=== PATIENT | male | born 1985 | race Caucasian/White ===

== ENCOUNTER 2025-07-19 19:57 | Emergency (ER) | payer BC, SELFPAY ==
[2025-07-19 19:58] VITALS: BP 142/97; PULSE 104; RESP 20; TEMP 36.6; O2SAT 100; BMI 34.9
--- NOTE | 2025-07-19 20:11 | EDS_ITS ---
HPI History of Present Illness Chief Complaint: Chest Pain Informant: patient Onset/Context/Timing Onset: Today Activity at onset: sudden and rest Timing: Continuous Quality: Positive for Pressure and Sharp Location: Substernal Worsened By: Nothing Relieved By: Nothing Associated Symptoms: Positive for Dyspnea; Negative for Nausea, Vomiting, Diaphoresis, Cough, Fever, Lightheadedness, Acid Reflux or Palpitations Narrative Narrative: Patient presents with chest pain that began today. Patient states it began rather suddenly. Patient states he was sitting when it began. Patient describes it as sharp and pressure. Patient states it is over the lower substernal area. Patient states nothing makes it worse and nothing makes it better. Patient admits to some shortness of breath with it. Patient denies any nausea or vomiting. Patient denies any diaphoresis. Patient denies any fevers or chills. Patient denies any palpitations. CVD Risk Factors: Negative for Hypertension, Diabetes, Hypercholesterolemia, Family History 1' </=55 or Smoking PE Risk Factors: Negative for Recent Travel/Surgery, Recent Immobilization, Prior DVT or PE, Cancer or OCP + Smoking + >/=35 PFSH PFSH Medical History no medical history no medical history Home Medications ?Medication ?Instructions ?Recorded ?Last Taken ?Type NK 07/19/25 Unknown History Allergy/AdvReac Type Severity Reaction Status Date / Time amoxicillin Allergy Swelling Verified 07/19/25 20:01 Surgical History no surgical history no surgical history Social History Smoking Status: Never smoker ROS ROS ED Constitutional Constitutional ED: Denies chills or fever(s) Eyes Eyes: Denies blurry vision or change in vision ENT ENT ED: Denies rhinorrhea or sore throat Cardiovascular Cardiovascular: Reports chest pain; Denies palpitations Respiratory/Chest Respiratory/Chest: Reports dyspnea; Denies cough Gastrointestinal Gastrointestinal: Denies nausea or vomiting Genitourinary Genitourinary ED: Denies dysuria or hematuria Musculoskeletal Musculoskeletal: Denies back pain or neck pain Integumentary Denies abscess or rash Neurologic Neurologic: Denies headache(s) or weakness Allergic/Immunologic Allergic/Immunologic ED: Denies mouth swelling or urticaria EXAM Physical Exam Const Vital Signs: 07/19/25 19:58 07/19/25 20:53 07/19/25 21:11 Temperature 97.8 F Temperature Source Oral Pulse Rate 104 H Respiratory Rate 20 H Blood Pressure 142/97 H 141/97 H Blood Pressure Mean 112 Pulse Ox 100 Oxygen Delivery Method Room Air Room Air 07/19/25 21:12 07/19/25 22:00 07/19/25 23:00 Temperature Temperature Source Pulse Rate 103 H 111 H 80 Respiratory Rate 19 H 16 Blood Pressure 141/97 H 132/100 H 148/102 H Blood Pressure Mean 111 110 117 Pulse Ox 96 95 99 Oxygen Delivery Method Positive well nourished and well developed General Appearance ED: well developed and NAD HEENT Reports moist mucous membranes normocephalic and atraumatic Neck supple and no JVD Chest Wall inspection of chest normal and palpation of chest normal Resp normal respiratory effort and clear to auscultation bilaterally Cardio regular rate and regular rhythm GI soft to palpation, non-tender and non-distended Extremity normal to inspection General Extremety ED: Negative for edema or tenderness General Extremity: Negative for edema Neuro oriented x3, CN's II-XII intact bilaterally and no sensory deficits noted Sensorium / Orientation: awake and alert Motor Exam: strength 5/5 throughout Psych mental status grossly normal Heart Score History: Slightly/Non-Suspicious ECG: Normal Age: </= 45 years Risk Factors: No Risk Factors Troponin: </= Normal Limit Score: 0 MDM MDM MDM Narrative Medical decision making narrative: Differential diagnosis includes cardiac dysrhythmia, cardiac ischemia, pneumonia, bronchitis, pulmonary embolism, electrolyte abnormality, dehydration, gastroesophageal reflux disease, and anxiety. EKG will be obtained to assess for cardiac dysrhythmia and cardiac ischemia. Chest x-ray will be obtained to assess for pneumonia and bronchitis. CBC will be obtained to assess for leukocy tosis and anemia. Basic metabolic profile will be obtained to assess for electrolyte abnormality and renal function. High-sensitivity troponin will be obtained to assess for cardiac ischemia. 2-hour repeat high-sensitivity troponin will be obtained to assess for ongoing cardiac ischemia. D-dimer will be obtained to assess for pulmonary embolism. Lab Data Attestation: I reviewed the patient's lab results. Lab results narrative: CBC was reviewed and was within normal limits. Basic metabolic profile was reviewed and was within normal limits. Initial high-sensitivity troponin was reviewed and was less than 6. D-dimer was reviewed and was less than 0.27. 2- hour repeat high-sensitivity troponin was reviewed and was less than 6. Labs: Laboratory Results - last 24 hr 07/19/25 07/19/25 07/19/25 20:04 20:52 22:38 WBC 9.9 RBC 5.29 Hgb 15.0 Hct 43.6 MCV 82.4 MCH 28.4 MCHC 34.4 RDW Std Deviation 38.6 RDW Coeff of Michel 12.9 Plt Count 309 MPV 9.2 Immature Gran % (Auto) 0.400 Neut % (Auto) 45.9 L Lymph % (Auto) 40.0 [place] % (Auto) 8.6 Eos % (Auto) 4.4 Baso % (Auto) 0.7 Absolute Neuts (auto) 4.5 Absolute Lymphs (auto) 3.94 Nucleated RBC % 0 D-Dimer Quant (PE/DVT) < 0.27 L Sodium 143 Potassium 3.6 Chloride 106 Carbon Dioxide 24.7 Anion Gap 12 BUN 14 Creatinine 1.03 Estim Creat Clear Calc 133.31 Est GFR (MDRD) Non-Af 96 BUN/Creatinine Ratio 13.8 Glucose 90 Calcium 9.1 Troponin T High Sens < 6 Troponin T Hi Sens 2 Hr < 6 Radiography Chest X-Ray - ED: 2 View, Read by ED Physician, Read by Radiologist and No Acute Disease Diagnostic Testing: Clinical Impression(s) from Imaging Studies Chest X-Ray 07/19/25 22:20 IMPRESSION: Hypoventilation without acute cardiopulmonary abnormality. Reading Location: [facility] [place] and lateral chest x-ray was obtained. There are 2 views. On my independent interpretation, lung snider are clear. There is normal cardiac silhouette. Bony thorax is normal. There is no acute process noted. Radiologist also interpreted the x-ray and agrees. EKG Initial EKG: Attestation: I personally reviewed and interpreted this EKG as follows: Interpretation: Sinus Rhythm (95) and No Acute Injury Pattern Comments: EKG was obtained. On my independent interpretation, it showed a normal sinus rhythm with a rate of 95. IA interval, QRS interval, and QTc intervals were all normal. [place] was normal. There are no acute ST or T wave changes. Prior EKG tracings: available for review Prior: Unchanged (03/16/2017) Treatment and Re-Evaluation :: Patient was given aspirin and sublingual nitroglycerin. Patient feeling better on reevaluation. Patient states he noted more reflux symptoms in his chest and throat. Patient was given a GI cocktail. Patient has a HEART score of 0. Patient was advised that this is low risk for acute cardiac event. Patient was instructed to follow-up with his primary care physician in 5 to 7 days. Patient understood and was agreeable with the plan. All questions were answered. Discharge Plan Triage Chief Complaint: Chest Pain ED Provider: Mehdi Blackmon Dx/Rx/DC Orders Clinical Impression: Chest pain, GERD (gastroesophageal reflux disease), Elevated blood pressure reading without diagnosis of hypertension Instructions: ED Chest Pain, Uncertain Cause, ED GERD (Adult) Prescriptions: No Action NK Primary Care Provider: Kaveh Oakley Referrals: Kaveh Oakley MD [Primary Care Provider, Family Practice] - 1-2 Weeks Print Language: Latvian Disposition Disposition: Home, Self Care
--- NOTE | 2025-07-19 20:42 | EKG12_ITS ---
Test Reason : CP Blood Pressure : */* mmHG Vent. Rate : 95 BPM Atrial Rate : 95 BPM P-R Int : 164 ms QRS Dur : 90 ms QT Int : 342 ms P-R-T Axes : 27 -3 0 degrees QTcB Int : 429 ms Normal sinus rhythm Normal ECG Confirmed by David Olivo ([id number]), purchasing expeditor ANGELA SPARKS ([id number]) on 07/25/2025 7:29:26 AM Referred By: [email or web address] Confirmed By: David Olivo
--- OUTSIDE RECORDS SUMMARY | 2025-07-19 20:52 | XMS RPT_ITS | CCD ---
Author Organization [facility] CliniSymn Care Team Providers Care Voice Systems Engineer Name Role Phone Maverick Herrera Unavailable Unavailable Kaveh Sánchez Unavailable Unavailable YuriyirisBrandyn Unavailable Unavailable Kaveh Sánchez Unavailable Unavailable Kaveh Sánchez MD Primary Care Provider Kaveh Sánchez MD Primary Care Provider Kaveh Sánchez MD Primary Care Provider Kaveh Sánchez MD Primary Care Provider [place] NEUROPSYCHOLOGY SERVICE DIRECTOR.Ade IZAGUIRRE Unavailable Arline Nielsen PA-C Unavailable Kaveh Sánchez MD Primary Care Provider [place] NEUROPSYCHOLOG[facility] SERVICE DIRECTOR.Ade IZAGUIRRE Unavailable Arline Nielsen PA-C Unavailable Kaveh Sánchez MD Primary Care Provider [place] NEUROPSYCHOLOGY SERVICE DIRECTOR.Ade IZAGUIRRE Unavailable Arline Nielsen PA-C Unavailable ARLINE NIELSEN Referring Unavailable KAVEH SÁNCHEZ A Primary Care Unavailable KAVEH SÁNCHEZ A Primary Care Unavailable FREDDY NEVES Attending Unavailable ARLINE NIELSEN Referring Unavailable KAVEH SÁNCHEZ A Primary Care Unavailable ARLINE NIELSEN Referring Unavailable KAVEH SÁNCHEZ A Primary Care Unavailable ARLINE NIELSEN Referring Unavailable KAVEH SÁNCHEZ A Primary Care Unavailable PRINCESS, KAVEH A Primary Care Unavailable NINA VALENCIA Attending Unavailable ARLINE NIELSEN Attending Unavailable ELIOT SÁNCHEZREY A Primary Care Unavailable Allergies Allergy Classification Reported Allergen(s) Allergy Type Date of Onset Reaction(s) Facility (1 source) amoxicillin Drug Allergy 7 AOF [facility] Repository (9 sources) Penicillins; Translations: [PENICILLINS] Drug Allergy 7 Other: See Comments [facility] Work Phone: (16 sources) Penicillins Drug Allergy 7 Other: See Comments [facility] Work Phone: (10 sources) Penicillins Drug Allergy 7 Hives, Angioedema [facility] Medications Current Medications Medication Drug Class(es) Dates Sig (Normalized) Sig (Original) [id number] 200 actuat albuterol 0.09 mg/actuat metered dose inhaler (11 sources) beta2-Adrenergic Agonist Start: 01-01-2025 take 2 puff(s) by inhalation every six hours as needed for wheezing albuterol HFA (PROVENTIL HFA, VENTOLIN HFA) 90 mcg/actuation inhaler Inhale 2 puffs as instructed every 6 hours as needed for wheezing/shortnes s of breath. 1 each 01/01/2025 Active Start: 12-23-2021 End: 01-26-2022 take 2 puff(s) by mouth four times daily albuterol HFA (PROVENTIL HFA, VENTOLIN HFA) 90 mcg/actuation inhaler inhale 2 puffs by mouth and INTO THE LUNGS four times a day if ne... (REFER TO PRESCRIPTION NOTES). 0 12/23/2021 01/26/2022 Discontinued (Course of therapy completed) Comment on above: inhale 2 puffs by mo uth and INTO THE LUNGS four times a day if ne... (REFER TO PRESCRIPTION NOTES). benzonatate 200 mg oral capsule (11 sources) Non-narcotic Antitussive Start: take 1 capsule by mouth every eight hours as needed Benzonatate 200 mg capsule Take 1 capsule by mouth three times a day as needed. 30 capsule 01/01/2025 Active Start: 12-23-2021 End: 01-26-2022 take 1 capsule by mouth three times daily for cough Benzonatate 200 mg capsule take 1 capsule by mouth three times a day if needed for cough 0 12/23/2021 01/26/2022 Discontinued (Course of therapy completed) Comment on above: take 1 capsule by mo uth three times a day if needed for cough cephalexin 500 mg oral capsule (1 source) Cephalosporin Antibacterial Start: 4 End: 4 take 1 capsule by mouth twice daily cephALEXin (KEFLEX) 500 mg capsule Take 1 capsule by mouth two times a day for 10 days. 20 capsule 0 10/31/2023 11/10/2023 Active Comment on above: Take 1 capsule by [facility] two times a day for 10 days. CPAP/BIPAP/OTHER (20 sources) Start: 5 End: CPAP/BIPAP/OTHER APAP 6-15 cmH2O DME [facility] 1 each 02/03/2025 06/20/2052 Active Start: 03-31-2022 End: 02-03-2025 CPAP/BIPAP/OTHER Type .CPAPS ettings into a note to see current settings/supplies/DME information. 1 Each 03/31/2022 02/03/2025 Discontinued Start: 03-31-2022 End: 01-01-2025 CPAP/BIPAP/OTHER Type .CPAPS ettings into a note to see current settings/supplies/DME information. 1 Each 03/31/2022 01/01/2025 Discontinued (Duplicate Entry) Start: 03-31-2022 End: 08-15-2049 CPAP/BIPAP/OTHER Type .CPAPS ettings into a note to see current settings/supplies/DME information. 1 Each 03/31/2022 08/15/2049 Active Start: 03-31-2022 End: 08-15-2049 CPAP/BIPAP/OTHER Type .CPAPS ettings into a note to see current settings/supplies/DME information. 1 Each 0 03/31/2022 08/15/2049 Active Comment on above: Type .CPAPSettings i nto a note to see current settings/supplies/DME information. multivitamin tablet (20 sources) take 1 tablet by mouth once daily multivitamin tablet Take 1 tablet by mouth once daily. Active take 1 tablet by mouth once flip y multivitamin tablet Take 1 tablet by mouth once daily. 0 Active Comment on above: [facility] omeprazole 40 mg delayed release oral capsule (20 sources) Proton Pump Inhibitor Start: 11-08-2022 End: 01-27-2025 take 1 capsule by mouth once daily omeprazole (PRILOSEC) 40 mg capsule Indications: GERD without esophagitis Take 1 capsule by mouth once daily. 30 capsule 5 01/27/2025 Active Start: 11-12-2019 End: 01-26-2022 take 1 capsule by mouth once daily omeprazole (PRILOSEC) 40 mg capsule Indications: GERD without esophagitis Take 1 capsule by mouth once daily. 30 capsule 5 01/26/2022 Active Comment on above: Take 1 capsule by [facility] once daily. take one capsule by mouth every day sulfamethoxazole 800 mg / trimethoprim 160 mg oral tablet (1 source) Dihydrofolate Reductase Inhibitor Antibacterial, Sulfonamide Antimicrobial Start: End: take 1 tablet by mouth twice daily sulfamethoxazole-tri methoprim (BACTRIM DS) 800-160 mg per tablet Take 1 tablet by mouth twice daily for 7 days. 14 tablet 0 11/22/2021 11/29/2021 Active Comment on above: Take 1 tablet by [facility] twice daily for 7 days. triazolam 0.25 mg oral tablet (8 sources) Benzodiazepine Start: End: triazolam (HALCION) 0.25 mg tablet Indications: sterilization Take 30 minutes prior to procedure. 1 tablet 0 10/18/2021 01/18/2022 Active Comment on above: Take 30 minutes prio r to procedure. valACYclovir 500 mg oral tablet (20 sources) Herpesvirus Nucleoside Analog DNA Polymerase Inhibitor, Herpes Simplex Virus Nucleoside Analog DNA Polymerase Inhibitor, Herpes Zoster Virus Nucleoside Analog DNA Polymerase Inhibitor Start: End: take 1 tablet by mouth once daily as needed valACYclovir (VALTREX) 500 mg tablet Indications: Recurrent cold sores Take 1 tablet by mouth once daily as needed. 30 tablet 5 01/01/2025 06/30/2025 Active Start: 08-01-2023 End: 01-28-2024 take 1 tablet by mouth once daily as needed valACYclovir (VALTREX) 500 mg tablet Indications: Recurrent cold sores Take 1 tablet by mouth once daily as needed. 30 tablet 5 08/01/2023 01/28/2024 Active Start: 11-12-2019 End: 02-25-2022 take 1 tablet by mouth once daily as needed valACYclovir (VALTREX) 500 mg tablet Indications: Recurrent cold sores Take 1 tablet by mouth once daily as needed. 30 tablet 11 01/26/2022 02/25/2022 Active Comment on above: Take 1 tablet by ro[facility] once daily. Take 1 tablet by [facility] once daily as needed. Completed/Discontinued Medications Medication Drug Class(es) Dates Sig (Normalized) Sig (Original) azithromycin 250 mg oral tablet (3 sources) Macrolide Antimicrobial Start: 12-26-2021 End: 01-26-2022 azithromycin (ZITHROMAX) 250 mg tablet Take by mouth as directed. TAKE 2 TABLETS BY MOUTH TODAY, THEN TAKE 1 TABLET DAILY FOR 4 DAYS 0 12/26/2021 01/26/2022 Discontinued (Course of therapy completed) Comment on above: Take by mouth as dir ected. TAKE 2 TABLETS BY MOUTH TODAY, THEN TAKE 1 TABLET DAILY FOR 4 DAYS doxycycline monohydrate 100 mg oral tablet (1 source) Tetracycline-class Drug Start: 01-03-2022 End: 01-26-2022 take 1 tablet by mouth twice daily doxycycline monohydrate 100 mg tablet Take 1 tablet by mouth twice daily. 20 tablet 0 01/03/2022 01/26/2022 Discontinued (Course of therapy completed) Comment on above: Take 1 tablet by [facility] twice daily. 28 actuat fluticasone propionate 0.25 mg/actuat dry powder inhaler (3 sources) Corticosteroid Start: 12-26-2021 End: 01-26-2022 take 2 puff(s) by mouth every twelve hours FLOVENT DISKUS 250 mcg/actuation inhaler inhale 2 puff by mouth and INTO THE LUNGS every 12 hours 0 12/26/2021 01/26/2022 Discontinued (Course of therapy completed) Comment on above: inhale 2 puff by rosanna th and INTO THE LUNGS every 12 hours gabapentin 300 mg oral capsule (9 sources) Anti-epileptic Agent Start: 11-05-2019 End: 01-26-2022 take 1 capsule by mouth twice daily gabapentin (NEURONTIN) 300 mg capsule Indications: Lumbosacral neuritis Take 1 capsule by mouth twice daily for 30 days. 60 capsule 0 11/05/2019 01/26/2022 Discontinued (Course of therapy completed) Comment on above: Take 1 capsule by mo [facility] twice daily for 30 days. naproxen 500 mg oral tablet (4 sources) Nonsteroidal Anti-inflammatory Drug Start: 06-26-2023 End: 07-26-2023 take 1 tablet by mouth every twelve hours as needed naproxen (NAPROSYN) 500 mg tablet Take 1 tablet by mouth two times a day as needed for pain. Take with food. 60 tablet 06/26/2023 07/26/2023 Comment on above: [facility] two times a day as needed for pain. Take with food. sertraline 50 mg oral tablet (9 sources) Serotonin Reuptake Inhibitor Start: 11-03-2020 End: 01-26-2022 sertraline (ZOLOFT) 50 mg tablet Indications: Anxiety with depression 1/2 a tablet by mouth once a day for 10 days then go to one tablet daily 30 tablet 3 11/03/2020 01/26/2022 Discontinued (Course of therapy completed) Comment on above: 1/2 a tablet by [facility] once a day for 10 days then go to one tablet daily Problems Active Problems Problem Classification Problem Date Documented Date Episodic/Chronic Coma; stupor; and brain damage (1 source) Daytime somnolence; Translations: [Somnolence] Episodic Diseases of mouth; excluding dental (1 source) Dribbling from mouth; Translations: [Disturbances of salivary secretion] Episodic Disorders of lipid metabolism (9 sources) Mixed hyperlipidemia; Translations: [Mixed hyperlipidemia] Onset: 01-02-2025 01-02-2025 Chronic Esophageal disorders (20 sources) Gastroesophageal reflux disease without esophagitis; Translations: [Gastro-esophageal reflux disease without esophagitis] Onset: 11-12-2019 11-12-2019 Chronic External Injury - Natural / Environment (1 source) Exposure to other specified factors, initial encounter; Translations: [EXPOSURE TO OTHER SPECIFIED FACTORS, INITIAL ENCOUNTER] Onset: 04-17-2017 Immunizations and screening for infectious disease (2 sources) Vaccination needed; Translations: [Encounter for immunization] Onset: 01-06-2025 01-07-2025 Episodic Malaise and fatigue (3 sources) Fatigue; Translations: [Other fatigue] Onset: 01-01-2025 01-01-2025 Episodic Other connective tissue disease (1 source) Pain in right heel; Translations: [Pain in right foot] 06-19-2023 Episodic Other lower respiratory disease (1 source) Snoring; Translations: [Snoring] Episodic Other lower respiratory disease (1 source) Apnea; Translations: [Apnea, not elsewhere classified] Episodic Other lower respiratory disease (1 source) Cough; Translations: [Subacute cough] 01-01-2025 Episodic Other male genital disorders (2 sources) Pain of right testicle; Translations: [Right testicular pain] Episodic Other non-traumatic joint disorders (2 sources) Pain in right knee; Translations: [Pain in joint, lower leg] 06-26-2023 Episodic Other nutritional; endocrine; and metabolic disorders (20 sources) Obese class I; Translations: [Obesity, unspecified] Onset: 02-19-2020 02-19-2020 Chronic Other upper respiratory infections (5 sources) Pharyngitis; Translations: [Acute pharyngitis, unspecified] Onset: 12-06-2024 10-31-2023 Episodic Residual codes; unclassified (20 sources) Obstructive sleep apnea syndrome; Translations: [Obstructive sleep apnea (adult) (pediatric)] Onset: 02-21-2022 Resolved: 02-03-2025 Chronic Residual codes; unclassified (1 source) Unrefreshed by sleep; Translations: [Other sleep disorders] Chronic Residual codes; unclassified (1 source) Daytime somnolence; Translations: [Other hypersomnia] Chronic Residual codes; unclassified (2 sources) Obstructive sleep apnea (adult) (pediatric); Translations: [Obstructive sleep apnea] Onset: 02-21-2022 Chronic Residual codes; unclassified (2 sources) Reduced libido; Translations: [Decreased libido] 01-01-2025 Episodic Residual codes; unclassified (1 source) Decreased libido; Translations: [Low libido] Onset: 01-01-2025 Episodic Screening and history of mental health and substance abuse codes (2 sources) Encounter for screening for depression; Translations: [Encounter for screening examination for other mental health and behavioral disorders] Onset: 01-01-2025 Episodic Unclassified (1 source) Patient encounter status 01-01-2025 Unclassified (1 source) Obesity, Class I, BMI 30-34.9; Translations: [Obesity, Class I, BMI 30-34.9] Onset: 02-19-2020 Past or Other Problems Problem Classification Problem Date Documented Da te Episodic/Chronic Allergic reactions (2 sources) Allergy, unspecified, initial encounter; Translations: [Allergic urticaria] Onset: 04-17-2017 Episodic Contraceptive and procreative management (20 sources) Patient encounter status; Translations: [Encounter for sterilization] Onset: 11-12-2019 Episodic Other aftercare (2 sources) Other transit planner (current) drug therapy; Translations: [OTHER CARE HOME (CURRENT) DRUG THERAPY] Onset: 04-17-2017 Episodic Other aftercare (20 sources) Drug therapy finding; Translations: [Other transit planner (current) drug therapy] Onset: 11-12-2019 11-12-2019 Episodic Other gastrointestinal disorders (1 source) Dysphagia, unspecified; Translations: [DYSPHAGIA, UNSPECIFIED] Onset: 04-17-2017 Episodic Other infections; including parasitic (20 sources) History of Helicobacter pylori infection; Translations: [Personal history of other infectious and parasitic diseases] Onset: 05-27-2016 11-12-2019 Episodic Other screening for suspected conditions (not mental disorders or infectious disease) (20 sources) MRI of lumbar spine abnormal; Translations: [Abnormal findings on diagnostic imaging of other parts of musculoskeletal system] Onset: 07-23-2017 07-23-2017 Episodic Other skin disorders (2 sources) Rash and other nonspecific skin eruption; Translations: [Localized swelling, mass and lump, head] Onset: 04-17-2017 Episodic Spondylosis; intervertebral disc disorders; other back problems (20 sources) Acute back pain with sciatica; Translations: [Lumbago with sciatica, left side] Onset: 07-23-2017 11-12-2019 Episodic Viral infection (20 sources) Recurrent herpes simplex labialis; Translations: [Herpesviral vesicular dermatitis] Onset: 12-11-2013 12-11-2013 Episodic Results Test Name Value Interpretation Reference Range [facility] FAISAL ALEXANDER ([id number]) 1985 M Date Time Provider Department 02/04/25 FREDDY NEVES During your visit today, we recorded the following information about you: Debra Herman RN 02/04/2025 11:27 AM Signed Valeri from [employer] calls and states that they received orders for CPAP supplies. Insurance will not cover supplies because patient is only 3% compliant on CPAP usage. Patient can purchase supplies online and then if is he compliant for 30 days insurance will cover after another visit with provider. ADIEL Hayes Rebecca, STEVEN.ZINA 02/05/2025 10:00 AM Signed At his appointment I discussed that that might be the case. He'll be ok since he has the sample mask. Freddy Neves APRN.ZINA Allergies As of Date: 02/04/2025 Noted Allergy Reaction PENICILLINS 03/21/2017 4 - Hives 18 - Angioedema Date Reviewed: 02/03/2025 Reviewed by: SKYLAR IZQUIERDO - Fully Assessed Reason for Visit: Orders [681] Prescriptions as of 02/07/2025 - CPAP/BIPAP/OTHER APAP 6-15 cmH2O [facility] - omeprazole (PRILOSEC) 40 mg capsule Take 1 capsule by mouth once daily. - valACYclovir (VALTREX) 500 mg tablet Take 1 tablet by mouth once daily as needed. - Benzonatate 200 mg capsule Take 1 capsule by mouth three times a day as needed. - albuterol HFA (PROVENTIL HFA, VENTOLIN HFA) 90 mcg/actuation inhaler Inhale 2 puffs as instructed every 6 hours as needed for wheezing/shortness of breath. - multivitamin tablet Take 1 tablet by mouth once daily. Problem List As Of Date 02/04/2025 Noted Resolved Recurrent cold sores [B00.1] 12/11/2013 Well adult exam [Z00.00] 02/19/2014 History of Helicobacter pylori infection [Z86.1*05/27/2016 Abnormal MRI, lumbar spine [R93.7] 07/23/2017 Acute midline low back pain with left-sided sci*07/23/2017 Lumbosacral neuritis [M54.17] 01/09/2018 GERD without esophagitis [K21.9] 11/12/2019 Encounter for screening for diabetes mellitus [*11/12/2019 Current use of proton pump inhibitor [Z79.899] 11/12/2019 Obesity, Class I, BMI 30-34.9 [E66.811] 02/19/2020 Severe obstructive sleep apnea [G47.33] 02/21/2022 02/03/2025 Hyperlipidemia, mixed [E78.2] 01/02/2025 JAYMIE (obstructive sleep apnea) [G47.33] 02/03/2025 Encounter Status:Closed by DEBRA HERMAN on 02/07/[address] [facility] CNOVon 02-03-2025 CNOV Office Visit (SLEWST ) ----- FAISAL ALEXANDER ([id number]) 1985 M Date Time Provider Department 02/03/25 8:00 AM FREDDY NEVES During your visit today, we recorded the following information about you: Pulse Respiration Blood pressure Weight 80/minute 12/minute 118/82 118.6 kg Freddy Neves APRN.CNP 02/03/2025 8:43 AM Signed [facility] Follow up/ Established patient visit Assessment/Plan from last visit: Date of last visit : 03/31/22 IMPRESSION/PLAN: Diagnosis: G47.33 Severe obstructive sleep apnea (primary encounter diagnosis) E66.9 Obesity, Class I, BMI 30-34.9 R06.83 Snoring R06.81 Witnessed episode of apnea G47.8 Unrefreshed by sleep G47.19 Excessive daytime sleepiness K11.7 Drooling Sleep Studies (Reviewed Prior and Current): Home Sleep Test (HST) 02/10/2022 confirms a diagnosis of severe positional (supine related) obstructive sleep apnea. The off-supine related WANDER/AHI was normal. JAYMIE (Total AHI 13.3, Off-Supine AHI 2.9, Supine AHI 37.2) that was associated with a minimum oxygen saturation of 87%. Overview: Mr. Faisal Alexander is a 36 year old male with a PMH of GERD, Obesity who presents via virtual visit for new patient evaluation for Dx: Severe obstructive sleep apnea [G47.33 (ICD-10-CM)]. It started with my complaining about me snoring and my breathing was kind of weird. I don't wake up when our baby is crying. Fatigue during the day. Snoring going on for several years. Fatigue for the past year. will put her hand on his back because he stops breathing. Reports excessive drooling at night. Discussed Home Sleep Test (HST) 02/10/2022 results which confirms a diagnosis of severe positional (supine related) obstructive sleep apnea. The off-supine related WANDER/AHI was normal. JAYMIE (Total AHI 13.3, Off-Supine AHI 2.9, Supine AHI 37.2) that was associated with a minimum oxygen saturation of 87%. The results of this study may represent an underestimation of the degree of obstructive sleep apnea, especially hypopneas, because of the known limitations of HSAT, such as inability to record arousals because EEG is not recorded. Discussed the diagnosis and physiology of obstructive sleep apnea. Discussed the importance of treating JAYMIE, with particular attention given to the comorbidities associated with untreated JAYMIE, which include but are not limited to hypertension, heart disease, stroke, obesity and daytime sleepiness that can affect normal daytime functioning. Treatment options for sleep apnea, including positive airway pressure (PAP) therapy, surgery, oral appliance and conservative measures (avoidance of alcohol, sedative medications and sleeping in the back position, management of nasal obstruction and weight loss), should be individualized. PAP therapy may be considered in patients with documented symptoms of daytime sleepiness, impaired cognition, mood disorder, insomnia, or documented hypertension, ischemic heart disease, or history of stroke. Plan: - Start AutoCPAP 6-15 cmH2O with formal mask fitting and patient mask preference. New to PAP therapy. - I will have a prescription sent to a [employer] company - [email or web address]. who will be calling you in the next 1-2 weeks. Please call them directly or us if you do not hear from them in this time frame. DME Contact Information[facility] [employer] [facility] [phone] - Please consider side sleeping or sleeping upright in a recliner until starting AutoPAP therapy. - You should be eligible for new supplies approximately every 3-6 months, depending on your insurance coverage. - If your mask doesn't fit well, call the [employer] company before 30 days are up to get a new mask without an additional charge. - We encourage a healthy lifestyle with adequate sleep (7-8 hours), diet and exercise. - Avoid driving when drowsy. Would recommend that if you are dozing off while driving, that you do not drive until your sleep apnea and sleepiness are appropriately treated. - Avoid the use of alcohol, sedatives, and narcotic pain medication at bedtime Insurance requirements: - Your insurance requires a [id number] follow up visit within a 31-90 day period after starting PAP machine (aim for ~ 60 days). At that visit, we will get a data download to ensure tolerance, compliance, and efficacy. - Your insurance requires compliance with PAP, which is at least 4 hours per night for 70% of the time. This must be done over a 30 day period and must occur within the initial 31-90 day period after starting CPAP. - Your insurance also requires at least yearly follow ups to continue to pay for CPAP supplies. Follow up: - Follow up in 60 days after your PAP machine arrives. Remember to contac (more content not included)... Normal [facility] TESTOSTERONE, FREE AND TOTAL , BY EQUILIBRIUM DIALYSIS AND MASS SPECTROMETRYon 02-03-2025 Testosterone [Mass/Vol] 386.1 ng/dL Normal 240.0-950.[address] [facility] Comment on above: Order Comment: Speci men Type: BLOOD SPECIMEN Ordering Facility: [facility] Address: [address] [place] [address] Result Comment: Test ing performed by Liquid Chromatography-Tandem Mass Spectrometry (LC-MS/MS). This test was developed, and its performance characteristics determined by the [facility] Department of Pathology and Laboratory Medicine. It has not been cleared or approved by the FDA. The [facility] Department of Pathology and Laboratory Medicine is regulated under CLIA as qualified to perform high-complexity testing. This test is used for clinical purposes. It should not be regarded as investigational or for research. Performed By: #### 2 132-9, 86025-7 #### [facility] CLIA [id number] [address] [place] [address] [place] Testosterone Free [Mass/Vol] 7.44 ng/dL Normal 1.86-8.[address] [facility] Comment on above: Order Comment: Speci men Type: BLOOD SPECIMEN Ordering Facility: [facility] Address: [address] [place] [address] Result Comment: Test ing performed by equilibrium dialysis (ED) and Liquid Chromatography-Tandem Mass Spectrometry (LC-MS/MS). This test was developed, and its performance characteristics determined by the [facility] Department of Pathology and Laboratory Medicine. It has not been cleared or approved by the FDA. The [facility] Department of Pathology and Laboratory Medicine is regulated under CLIA as qualified to perform high-complexity testing. This test is used for clinical purposes. It should not be regarded as investigational or for research. Performed By: #### 2 132-9, 81944-0 #### [facility] CLIA [id number] [address] [place] [address] [place] CNPNon 01-23-2025 CNPN Telephone ([facility] ----- FAISAL ALEXANDER ([id number]) 1985 M Date Time Provider Department 01/23/25 [facility]EN [facility] During your visit today, we recorded the following information about you: SKYLAR IZQUIERDO 01/23/2025 9:16 AM Signed Left message for patient to return call. Currently he is scheduled for a nurse visit for Hepatitis B vaccine. He received a dose on 01/06/25, however, this would be his 3rd dose to complete series he started in 2013. Per Arline Nielsen PA-C: Hep b antibody is negative, meaning he does not have immunity. Order for 3 vaccine placed. May need to get repeat titer next year to make sure he does get immunity. He would not currently need any additional doses unless recheck titer in a year to verify immunity. CHARAN Reilly HEATHER 02/03/2025 8:59 AM Signed Patient notified and appt cancelled. Skylar Izquierdo LPN Allergies As of Date: 01/23/2025 Noted Allergy Reaction PENICILLINS 03/21/2017 4 - Hives 18 - Angioedema Date Reviewed: 01/01/2025 Reviewed by: Buzz Bah LPN - Fully Assessed Prescriptions as of 02/03/2025 - CPAP/BIPAP/OTHER APAP 6-15 cmH2O [facility] - omeprazole (PRILOSEC) 40 mg capsule Take 1 capsule by mouth once daily. - valACYclovir (VALTREX) 500 mg tablet Take 1 tablet by mouth once daily as needed. - Benzonatate 200 mg capsule Take 1 capsule by mouth three times a day as needed. - albuterol HFA (PROVENTIL HFA, VENTOLIN HFA) 90 mcg/actuation inhaler Inhale 2 puffs as instructed every 6 hours as needed for wheezing/shortness of breath. - multivitamin tablet Take 1 tablet by mouth once daily. Problem List As Of Date 01/23/2025 Noted Resolved Recurrent cold sores [B00.1] 12/11/2013 Well adult exam [Z00.00] 02/19/2014 History of Helicobacter pylori infection [Z86.1*05/27/2016 Abnormal MRI, lumbar spine [R93.7] 07/23/2017 Acute midline low back pain with left-sided sci*07/23/2017 Lumbosacral neuritis [M54.17] 01/09/2018 GERD without esophagitis [K21.9] 11/12/2019 Encounter for screening for diabetes mellitus [*11/12/2019 Current use of proton pump inhibitor [Z79.899] 11/12/2019 Obesity, Class I, BMI 30-34.9 [E66.811] 02/19/2020 Severe obstructive sleep apnea [G47.33] 02/21/2022 Hyperlipidemia, mixed [E78.2] 01/02/2025 Encounter Status:Closed by SKYLAR IZQUIERDO on 02/03/[address] [facility] CNNURSEon 01-06-2025 [facility] Nurse Visit ([facility]) ----- FAISAL ALEXANDER ([id number]) 1985 M Date Time Provider Department 01/06/25 12:30 PM [facility] During your visit today, we recorded the following information about you: Judie Martin LPN 01/07/2025 5:28 PM Signed Patient presents for Hepatitis B vaccine. Denies any problems at this time. Tolerated injection well with no complaints. Judie Martin LPN Allergies As of Date: 01/06/2025 Noted Allergy Reaction PENICILLINS 03/21/2017 4 - Hives 18 - Angioedema Date Reviewed: 01/01/2025 Reviewed by: Buzz Bah LPN - Fully Assessed Primary Visit Diagnosis:Need for vaccination [Z23] Prescriptions as of 01/07/2025 - valACYclovir (VALTREX) 500 mg tablet Take 1 tablet by mouth once daily as needed. - Benzonatate 200 mg capsule Take 1 capsule by mouth three times a day as needed. - albuterol HFA (PROVENTIL HFA, VENTOLIN HFA) 90 mcg/actuation inhaler Inhale 2 puffs as instructed every 6 hours as needed for wheezing/shortness of breath. - omeprazole (PRILOSEC) 40 mg capsule Take 1 capsule by mouth once daily. - CPAP/BIPAP/OTHER Type .CPAPSettings into a note to see current settings/supplies/DME information. - multivitamin tablet Take 1 tablet by mouth once daily. Problem List As Of Date 01/06/2025 Noted Resolved Recurrent cold sores [B00.1] 12/11/2013 Well adult exam [Z00.00] 02/19/2014 History of Helicobacter pylori infection [Z86.1*05/27/2016 Abnormal MRI, lumbar spine [R93.7] 07/23/2017 Acute midline low back pain with left-sided sci*07/23/2017 Lumbosacral neuritis [M54.17] 01/09/2018 GERD without esophagitis [K21.9] 11/12/2019 Encounter for screening for diabetes mellitus [*11/12/2019 Current use of proton pump inhibitor [Z79.899] 11/12/2019 Obesity, Class I, BMI 30-34.9 [E66.811] 02/19/2020 Severe obstructive sleep apnea [G47.33] 02/21/2022 Hyperlipidemia, mixed [E78.2] 01/02/2025 Encounter Status:Closed by JUDIE MARTIN on 01/07/[address] [facility] CBC W Auto Differential pane l (Bld)on 01-01-2025 Basophils (Bld) [#/Vol] 0.08 10*3/uL Normal <0.[address] [facility] Comment on above: Order Comment: Speci men Type: BLOOD SPECIMEN Ordering Facility: [facility] Address: [address] [place] [address] Performed By: #### 5 7021-8 #### [facility] CLIA [id number] [address] [place] [address] [place] Basophils/100 WBC (Bld) 1.2 % Normal [facility] Comment on above: Order Comment: Speci men Type: BLOOD SPECIMEN Ordering Facility: [facility] Address: [address] [place] [address] Performed By: #### 5 7021-8 #### [facility] CLIA [id number] [address] [place] [address] [place] Differential cell count method Nom (Bld) Auto Normal [facility] Comment on above: Order Comment: Speci men Type: BLOOD SPECIMEN Ordering Facility: [facility] Address: [address] [place] [address] Performed By: #### 5 7021-8 #### [facility] CLIA [id number] [address] [place] [address] [place] Eosinophils (Bld) [#/Vol] 0.29 10*3/uL Normal <0.[address] [facility] Comment on above: Order Comment: Speci men Type: BLOOD SPECIMEN Ordering Facility: [facility] Address: [address] [place] [address] Performed By: #### 5 7021-8 #### [facility] CLIA [id number] [address] [place] [address] [place] Eosinophils/100 WBC (Bld) 4.5 % Normal [facility] Comment on above: Order Comment: Speci men Type: BLOOD SPECIMEN Ordering Facility: [facility] Address: [address] [place] [address] Performed By: #### 5 7021-8 #### [facility] CLIA [id number] [address] [place] [address] [place] Erythrocyte distribution width (RBC) [Ratio] 13.0 % Normal 11.5-15.[address] [facility] Comment on above: Order Comment: Speci men Type: BLOOD SPECIMEN Ordering Facility: [facility] Address: [address] [place] [address] Performed By: #### 5 7021-8 #### [facility] CLIA [id number] [address] [place] [address] [place] Hematocrit (Bld) [Volume fraction] 45.3 % Normal 39.0-51.[address] [facility] Comment on above: Order Comment: Speci men Type: BLOOD SPECIMEN Ordering Facility: [facility] Address: [address] [place] [address] Performed By: #### 5 7021-8 #### [facility] CLIA [id number] [address] [place] [address] [place] Hemoglobin (Bld) [Mass/Vol] 15.7 g/dL Normal 13.0-17.[address] [facility] Comment on above: Order Comment: Speci men Type: BLOOD SPECIMEN Ordering Facility: [facility] Address: [address] [place] [address] Performed By: #### 5 7021-8 #### [facility] CLIA [id number] [address] [place] [address] [place] Immature granulocytes (Bld) [#/Vol] 10*3/uL Normal <0.[address] [facility] Comment on above: Order Comment: Speci men Type: BLOOD SPECIMEN Ordering Facility: [facility] Address: [address] [place] [address] Performed By: #### 5 7021-8 #### [facility] CLIA [id number] [address] [place] [address] [place] Immature granulocytes/100 WBC (Bld) 0.2 % Normal [facility] Comment on above: Order Comment: Speci men Type: BLOOD SPECIMEN Ordering Facility: [facility] Address: [address] [place] [address] Performed By: #### 5 7021-8 #### [facility] CLIA [id number] [address] [place] [address] [place] Lymphocytes (Bld) [#/Vol] 2.10 10*3/uL Normal 1.00-4.[address] [facility] Comment on above: Order Comment: Speci men Type: BLOOD SPECIMEN Ordering Facility: [facility] Address: [address] [place] [address] Performed By: #### 5 7021-8 #### [facility] CLIA [id number] [address] [place] [address] [place] Lymphocytes/100 WBC (Bld) 32.5 % Normal [facility] Comment on above: Order Comment: Speci men Type: BLOOD SPECIMEN Ordering Facility: [facility] Address: [address] [place] [address] Performed By: #### 5 7021-8 #### [facility] CLIA [id number] [address] [id number] [address] [place] MCH (RBC) [Entitic mass] 28.8 pg Normal 26.0-34.[address] [facility] Comment on above: Order Comment: Speci men Type: BLOOD SPECIMEN Ordering Facility: [facility] Address: [address] [place] [address] Performed By: #### 5 7021-8 #### [facility] CLIA [id number] [address] [place] [address] [place] MCHC (RBC) [Mass/Vol] 34.7 g/dL Normal 30.5-36.0 [facility] Comment on above: Order Comment: Speci men Type: BLOOD SPECIMEN Ordering Facility: [facility] Address: [address] [place] [address] Performed By: #### 5 7021-8 #### [facility] CLIA [id number] [address] [place] [address] [place] MCV (RBC) [Entitic vol] 83.0 fL Normal 80.0-100.[address] [facility] Comment on above: Order Comment: Speci men Type: BLOOD SPECIMEN Ordering Facility: [facility] Address: [address] [place] [address] Performed By: #### 5 7021-8 #### [facility] CLIA [id number] [address] [place] [address] [place] Monocytes (Bld) [#/Vol] 0.57 10*3/uL Normal <0.[address] [facility] Comment on above: Order Comment: Speci men Type: BLOOD SPECIMEN Ordering Facility: [facility] Address: [address] [place] [address] Performed By: #### 5 7021-8 #### [facility] CLIA [id number] [address] [place] [address] [place] Monocytes/100 WBC (Bld) 8.8 % Normal [facility] Comment on above: Order Comment: Speci men Type: BLOOD SPECIMEN Ordering Facility: [facility] Address: [address] [place] [address] Performed By: #### 5 7021-8 #### [facility] CLIA [id number] [address] [place] [address] [place] Neutrophils (Bld) [#/Vol] 3.41 10*3/uL Normal 1.45-7.[address] [facility] Comment on above: Order Comment: Speci men Type: BLOOD SPECIMEN Ordering Facility: [facility] Address: [address] [place] [address] Performed By: #### 5 7021-8 #### [facility] CLIA [id number] [address] [place] [address] [place] Neutrophils/100 WBC (Bld) 52.8 % Normal [facility] Comment on above: Order Comment: Speci men Type: BLOOD SPECIMEN Ordering Facility: [facility] Address: [address] [place] [address] Performed By: #### 5 7021-8 #### [facility] CLIA [id number] [address] [place] [address] [place] Nucleated RBC (Bld) [#/Vol] 10*3/uL Normal <0.[address] [facility] Comment on above: Order Comment: Speci men Type: BLOOD SPECIMEN Ordering Facility: [facility] Address: [address] [place] [address] Performed By: #### 5 7021-8 #### [facility] CLIA [id number] [address] [place] [address] [place] Nucleated RBC/100 WBC (Bld) [Ratio] 0.0 /100 WBC Normal [facility] Comment on above: Order Comment: Speci men Type: BLOOD SPECIMEN Ordering Facility: [facility] Address: [address] [place] [address] Performed By: #### 5 7021-8 #### [facility] CLIA [id number] [address] [place], [place] [id number] [place] Platelet mean volume (Bld) [Entitic vol] 9.3 fL Normal 9.0-12.[address] [facility] Comment on above: Order Comment: Speci men Type: BLOOD SPECIMEN Ordering Facility: [facility] Address: [address] [place] [address] Performed By: #### 5 7021-8 #### [facility] CLIA [id number] [address] [place] [address] [place] Platelets (Bld) [#/Vol] 285 10*3/uL Normal 150-[address] [facility] Comment on above: Order Comment: Speci men Type: BLOOD SPECIMEN Ordering Facility: [facility] Address: [address] [place] [address] Performed By: #### 5 7021-8 #### [facility] CLIA [id number] [address] [place] [address] [place] RBC (Bld) [#/Vol] 5.46 10*6/uL Normal 4.20-6.00 [facility] Comment on above: Order Comment: Speci men Type: BLOOD SPECIMEN Ordering Facility: [facility] Address: [address] [place] [address] Performed By: #### 5 7021-8 #### [facility] CLIA [id number] [address] [place] [address] [place] WBC (Bld) [#/Vol] 6.46 10*3/uL Normal 3.70-11.00 [facility] Comment on above: Order Comment: Speci men Type: BLOOD SPECIMEN Ordering Facility: [facility] Address: [address] [place] [address] Performed By: #### 5 7021-8 #### [facility] CLIA [id number] [address] [place] [address] [place] CNOVon 01-01-2025 CNOV Office Visit ([facility] ----- FAISAL ALEXANDER ([id number]) 1985 M Date Time Provider Department 01/01/25 7:00 AM ARLINE NIELSEN During your visit today, we recorded the following information about you: Temperature Pulse Respiration Blood pressure 97.7 degrees 94/minute 18/minute 110/82 Weight Height 119.3 kg 1.85 m Arline Nielsen PA-C 01/01/2025 8:00 AM Signed Chief Complaint Patient presents with: Yearly Exam HPI Faisal Alexander is a 39 year old male who presents here today for physical. . Patient with hx of JAYMIE, GERD, recurrent cold sores, obesity and those as below. Annual Wellness Exam: - No changes in medical or surgical history since last visit. - Uses nicotine pouches; denies smoking or vaping. - Received two Hepatitis B vaccinations in 2013; unsure if the third dose was administered. Did get all childhood immunizations. Cough: - Persistent dry cough x3-4 weeks, primarily nocturnal. - Reminiscent of a previous cough experienced during a COVID-19 infection. - Denies fevers, sinus congestion, or post-nasal drip. - Not taking any medication for the cough. Fatigue and Decreased Libido: - Reports fatigue and decreased libido, with concerns about low testosterone levels. - Noted improvement in energy levels when compliant with CPAP therapy. - Denies depression, weight changes, or muscle mass loss. - No changes in work or personal life contributing to symptoms. Sleep Apnea: - Diagnosed in 2021; non-compliant with CPAP therapy due to discomfort from nasal pillows. - Insurance requires a new sleep study for CPAP coverage. - Needs new consult to sleep medicine. Herpes Simplex Virus: - Requests renewal of valacyclovir 500 mg, taken PRN for cold sores. Gastroesophageal Reflux Disease: - Takes omeprazole PRN. Past medical history, appointments, medications, allergies reviewed. Previous Medical History PAST MEDICAL HISTORY Diagnosis Date Abnormal MRI, lumbar spine 07/23/2017 Acute midline low back pain with left-sided sciatica 07/23/2017 Seeing spine Med GERD without esophagitis 11/12/2019 History of Helicobacter pylori infection 05/27/20162016 Lumbosacral neuritis 01/09/2018 Seeing Spine Med Recurrent cold sores 12/11/2013 Severe obstructive sleep apnea 02/21/2022 Previous Surgical History PAST SURGICAL HISTORY Procedure Laterality Date ESOPHAGOGASTRODUODENOSCOP Y TRANSORAL DIAGNOSTIC 09/21/2016 EGD ESOPHAGOGASTRODUODENOSCOP Y TRANSORAL DIAGNOSTIC 10/29/2018 EGD VASECTOMY 11/11/2021 Family History FAMILY HISTORY Problem Relation Age of Onset Multiple Sclerosis Mother None Father None Sister Ciliac disease None Sister None Brother Cancer Maternal Grandmother , Breast and esophageal Cancer Maternal Grandfather stomach None Paternal Grandmother Coronary Artery Disease Paternal Grandfather early 50's Patient Allergies ALLERGIES Allergen Reactions Penicillins Hives, Angioedema Current Medications Current Outpatient Medications on File Prior to Visit Medication Sig omeprazole (PRILOSEC) 40 mg capsule Take 1 capsule by mouth once daily. multivitamin tablet Take 1 tablet by mouth once daily. CPAP/BIPAP/OTHER Type .CPAPSettings into a note to see current settings/supplies/DME information. CPAP/BIPAP/OTHER Type .CPAPSettings into a note to see current settings/supplies/DME information. No current facility-administered medications on file prior to visit. Social History Social History Tobacco Use Smoking status: Never Smokeless tobacco: Former Types: Chew Tobacco comments: Uses nicotine pouches as reported 06/26/23 Vaping Use Vaping status: Never Used Substance Use Topics Alcohol use: Yes Alcohol/week: 4.0 standard drinks of alcohol Types: 2 Shots of liquor, 2 Cans of Beer (12oz) per week Comment: occassionally Drug use: No Review of Symptoms REVIEW OF SYSTEMS GENERAL: No weight loss, malaise or fevers HEENT: No changes in hearing or vision, no nose bleeds or other nasal problems NECK: Negative for lumps, goiter, pain and significant neck swelling RESPIRATORY: See HPI, no shortness of breath or wheezing. CARDIOVASCULAR: Negative for chest pain, leg swelling, hypertension, CHF or palpitations GI: Negative for abdominal discomfort, blood in stools or black stools, change in bowel habit, heart burn, nausea, vomiting : No history of dysuria, frequency or incontinence MUSCULOSKELETAL: Negative for joint pain or swelling, back pain or muscle pain SKIN: Negative for lesions, rash, and itching PSYCH: Negative for sleep disturbance, mood disorder and recent psychosocial stressors HEMATOLOGY/LYMPHOLOGY: Negative for prolonged bleeding, bruising easily or swollen nodes ENDOCRINE: Negative for cold or heat intolerance, polyuria, polydipsia and goiter NEURO: No history of headaches, syncope, para (more content not included)... Normal [facility] Comprehensive metabolic 2000 panelon 01-01-2025 Albumin [Mass/Vol] 4.6 g/dL Normal 3.9-4.9 [facility] Comment on above: Order Comment: Speci men Type: BLOOD SPECIMEN Ordering Facility: [facility] Address: [address] [place] [address] Performed By: #### 2 132-9, 28795-2 #### [facility] CLIA [id number] [address] [place] [address] [place] ALP [Catalytic activity/Vol] 67 U/L Normal 38-[address] [facility] Comment on above: Order Comment: Speci men Type: BLOOD SPECIMEN Ordering Facility: [facility] Address: [address] [place] [address] Performed By: #### 2 132-9, 08086-1 #### [facility] CLIA [id number] [address] [place] [address] [place] ALT [Catalytic activity/Vol] 23 U/L Normal 10-[address] [facility] Comment on above: Order Comment: Speci men Type: BLOOD SPECIMEN Ordering Facility: [facility] Address: [address] [place] [address] Performed By: #### 2 132-9, 84238-4 #### [facility] CLIA [id number] [address] [place] [address] [place] Anion gap [Moles/Vol] 12 mmol/L Normal 8-15 [facility] Comment on above: Order Comment: Speci men Type: BLOOD SPECIMEN Ordering Facility: [facility] Address: [address] [place] [address] Performed By: #### 2 132-9, 92181-5 #### [facility] CLIA [id number] [address] [place] [address] [place] AST [Catalytic activity/Vol] 19 U/L Normal 14-[address] [facility] Comment on above: Order Comment: Speci men Type: BLOOD SPECIMEN Ordering Facility: [facility] Address: [address] [place] [address] Performed By: #### 2 132-9, 24343-4 #### [facility] CLIA [id number] [address] [place] [address] [place] Bilirubin [Mass/Vol] 1.3 mg/dL Normal 0.2-1.3 [facility] Comment on above: Order Comment: Speci men Type: BLOOD SPECIMEN Ordering Facility: [facility] Address: [address] [place] [address] Performed By: #### 2 132-9, #### [facility] CLIA [id number] [address] [place] [address] [place] Calcium [Mass/Vol] 8.9 mg/dL Normal 8.5-10.2 [facility] Comment on above: Order Comment: Speci men Type: BLOOD SPECIMEN Ordering Facility: [facility] Address: [address] [place], [place] [address] Performed By: #### 2 132-9, 07292-3 #### [facility] CLIA [id number] [address] [place], [place] [address] [place] Chloride [Moles/Vol] 106 mmol/L Normal 98-107 [facility] Comment on above: Order Comment: Speci men Type: BLOOD SPECIMEN Ordering Facility: [facility] Address: [address] [place], [place] [address] Performed By: #### 2 132-9, 92970-4 #### [facility] CLIA [id number] [address] [place] [address] [place] CO2 [Moles/Vol] 22 mmol/L Normal 22-[address] [facility] Comment on above: Order Comment: Mariselai men Type: BLOOD SPECIMEN Ordering Facility: [facility] Address: [address] [place] [address] Performed By: #### 2 132-9, 96344-0 #### [facility] CLIA [id number] [address] [place] [address] [place] Creatinine [Mass/Vol] 0.91 mg/dL Normal 0.73-1.22 [facility] Comment on above: Order Comment: Mariselai men Type: BLOOD SPECIMEN Ordering Facility: [facility] Address: [address] [place] [address] Performed By: #### 2 132-9, 04854-0 #### [facility] CLIA [id number] [address] [place] [address] [place] Creatinine and Glomerular filtration rate.predicted panel (S/P/Bld) 111 mL/min/1.73m??? Normal >=[address] [facility] Comment on above: Order Comment: Fabienne fernando Type: BLOOD SPECIMEN Ordering Facility: [facility] Address: [address] [place] [address] Result Comment: Afsaneh mated Glomerular Filtration Rate (eGFR) is calculated using the 2020 CKD-EPI creatinine equation. This equation utilizes serum creatinine, sex, and age as parameters. The creatinine assay has traceable calibration to isotope dilution-mass spectrometry. Refer to KDIGO guidelines for clinical interpretation. In patients with unstable renal function, e.g. those with acute kidney injury, the eGFR may not accurately reflect actual GFR. Performed By: #### 2 132-9, 72171-3 #### [facility] CLIA [id number] [address] [place] [address] [place] Glucose [Mass/Vol] 102 mg/dL High 74-99 [facility] Comment on above: Order Comment: Mariselai men Type: BLOOD SPECIMEN Ordering Facility: [facility] Address: [address] [place] [address] Result Comment: The [place] [employer] (ADA) provides guidance for cutoff values for fasting glucose and random glucose. The ADA defines fasting as no caloric intake for at least 8 hours. Fasting plasma glucose results between 100 to 125 mg/dL indicate increased risk for diabetes (prediabetes). Fasting plasma glucose results greater than or equal to 126 mg/dL meet the criteria for diagnosis of diabetes. In the absence of unequivocal hyperglycemia, results should be confirmed by repeat testing. In a patient with classic symptoms of hyperglycemia or hyperglycemic crisis, random plasma glucose results greater than or equal to 200 mg/dL meet the criteria for diagnosis of diabetes. Reference: Standards of Medical Care in Diabetes 2016, [place] [employer]. Diabetes Care. 2016.39(Suppl 1). Performed By: #### 2 132-9, 48380-1 #### [facility] CLIA [id number] [address] [place] [address] [place] Potassium [Moles/Vol] 4.4 mmol/L Normal 3.7-5.1 [facility] Comment on above: Order Comment: Speci men Type: BLOOD SPECIMEN Ordering Facility: [facility] Address: [address] [place] [address] Performed By: #### 2 132-9, 60610-4 #### [facility] CLIA [id number] [address] [place] [address] [place] Protein [Mass/Vol] 7.3 g/dL Normal 6.3-8.0 [facility] Comment on above: Order Comment: Speci men Type: BLOOD SPECIMEN Ordering Facility: [facility] Address: [address] [place] [address] Performed By: #### 2 132-9, 69768-3 #### [facility] CLIA [id number] [address] [place] [address] [place] Sodium [Moles/Vol] 140 mmol/L Normal 136-144 [facility] Comment on above: Order Comment: Speci men Type: BLOOD SPECIMEN Ordering Facility: [facility] Address: [address] [place] [address] Performed By: #### 2 132-9, 84117-1 #### [facility] CLIA [id number] [address] [place] [address] [place] Urea nitrogen [Mass/Vol] 18 mg/dL Normal 9-[address] [facility] Comment on above: Order Comment: Speci men Type: BLOOD SPECIMEN Ordering Facility: [facility] Address: [address] [place] [address] Performed By: #### 2 132-9, 56543-7 #### [facility] CLIA [id number] [address] [place] [address] [place] HBV surface Ab Ql (S)on 12-22 HBV surface Ab Qn (S) <8.00 Normal [facility] Comment on above: Order Comment: Speci men Type: BLOOD SPECIMEN Ordering Facility: [facility] Address: [address] [place] [address] Result Comment: <8 m IU/mL: No serological evidence of immunity to Hepatitis B Virus. >/= 8 to <12 mIU/mL: No serological evidence of immunity to Hepatitis B Virus. >/= 12 mIU/mL: Consistent with serological evidence of immunity to Hepatitis B Virus. Performed By: #### 2 132-9, 26899-6 #### [facility] CLIA [id number] [address] [place] [address] [place] HBV surface Ab Ser Qlon 12-22 HBV surface Ab Ql (S) Negative Normal [facility] Comment on above: Order Comment: Speci men Type: BLOOD SPECIMEN Ordering Facility: [facility] Address: [address] [place] [address] Result Comment: No s erological evidence of immunity to Hepatitis B Virus. Performed By: #### 2 132-9, 09280-2 #### [facility] CLIA [id number] [address] [place] [address] [place] HbA1c (Bld)on 01-01-2025 Average glucose Estimated from glycated hemoglobin (Bld) [Mass/Vol] 100 mg/dL Normal [facility] Comment on above: Order Comment: Fabienne fernando Type: BLOOD SPECIMEN Ordering Facility: [facility] Address: [address] [place] [address] Result Comment: eAG: (Estimated average glucose) is a calculated value from HgbA1c and is senior account representative of the average blood glucose level in the last 2-3 month period. Performed By: #### 2 132-9, 76050-6 #### [facility] CLIA [id number] [address] [place] [address] [place] HbA1c (Bld) [Mass fraction] 5.1 % Normal 4.3-5.[address] [facility] Comment on above: Order Comment: Fabienne fernando Type: BLOOD SPECIMEN Ordering Facility: [facility] Address: [address] [place] [address] Result Comment: [place] Diabetes Association guidelines indicate that patients with HgbA1c in the range 5.7-6.4% are at increased risk for development of diabetes, and intervention by lifestyle modification may be beneficial. HgbA1c greater or equal to 6.5% is considered diagnostic of diabetes. Performed By: #### 2 132-9, #### [facility] CLIA [id number] [address] [place] [address] [place] LIPID PANEL, NONFASTINGon Cholesterol [Mass/Vol] 201 mg/dL High <200 [facility] Comment on above: Order Comment: Fabienne fernando Type: BLOOD SPECIMEN Ordering Facility: [facility] Address: [address] [place] [address] Result Comment: <200 mg/dL, Desirable 200-239 mg/dL, Borderline high >239 mg/dL, High Performed By: #### 2 132-9, 21929-6 #### [facility] CLIA [id number] [address] [place] [address] [place] HDL CHOLESTEROL, NF 34 mg/dL Low >39 [facility] Comment on above: Order Comment: Mariselakimberlee fernando Type: BLOOD SPECIMEN Ordering Facility: [facility] Address: [address] [place] [address] Result Comment: 40-5 9 mg/dL, Acceptable >59 mg/dL, High: Negative risk factor for coronary heart disease <40 mg/dL, Low: Positive risk factor for coronary heart disease Performed By: #### 2 132-9, 25515-7 #### [facility] CLIA [id number] [address] [place] [address] [place] LDL CHOLESTEROL CALCULATED, NF 144 mg/dL High <[address] [facility] Comment on above: Order Comment: Mariselakimberlee fernando Type: BLOOD SPECIMEN Ordering Facility: [facility] Address: [address] [place] [address] Result Comment: <100 mg/dL, Optimal 100-129 mg/dL, Near optimal/above optimal 130-159 mg/dL, Borderline high 160-189 mg/dL, High >189 mg/dL, Very high Secondary prevention optimal LDL Cholesterol levels are recommended to be <70 mg/dL LDL cholesterol is calculated using the Pollock-NIH equation. Performed By: #### 2 132-9, #### [facility] CLIA [id number] [address] [place] [address] [place] LDL/HDL RATIO, NF 4.24 mg/dL High <2.54 [facility] Comment on above: Order Comment: Mariselakimberlee fernando Type: BLOOD SPECIMEN Ordering Facility: [facility] Address: [address] [place] [address] Result Comment: Refe rence: 1. National Cholesterol Education Program ATP III Guideline At-A-Glance Quick Desk Reference: National Heart, Lung, and Blood Hope. National Institutes of Health. 2001: NIH Publication No. 01-3305. 2. An International Atherosclerosis Society position paper: global recommendations for the management of dyslipidemia: executive summary, Atherosclerosis. 2014: 232(2):410-413. Performed By: #### 2 132-9, 95519-2 #### [facility] CLIA [id number] [address] [place] [address] [place] NON HDL CHOL, NF 167 mg/dL High <130 [facility] Comment on above: Order Comment: Speci men Type: BLOOD SPECIMEN Ordering Facility: [facility] Address: [address] [place] [address] Result Comment: <130 mg/dL, Optimal 130-159 mg/dL, Near optimal/above optimal 160-189 mg/dL, Borderline high 190-219 mg/dL, High >219 mg/dL, Very high Secondary prevention optimal non HDL Cholesterol levels are recommended to be <100 mg/dL Performed By: #### 2 132-9, 91522-0 #### [facility] CLIA [id number] [address] [place] [address] [place] T CHOL/HDL RATIO NF 5.91 mg/dL High <5.10 [facility] Comment on above: Order Comment: Speci men Type: BLOOD SPECIMEN Ordering Facility: [facility] Address: [address] [place] [address] Performed By: #### 2 132-9, 48793-7 #### [facility] CLIA [id number] [address] [place] [address] [place] TRIGLYCERIDES, NF 125 mg/dL Normal <150 [facility] Comment on above: Order Comment: Speci men Type: BLOOD SPECIMEN Ordering Facility: [facility] Address: [address] [place] [address] Result Comment: <150 mg/dL, Normal 150-199 mg/dL, Borderline high 200-499 mg/dL, High >499 mg/dL, Very high Performed By: #### 2 132-9, 14822-0 #### [facility] CLIA [id number] [address] [place] [address] [place] VLDL CHOLESTEROL, NF 23 mg/dL Normal <30 [facility] Comment on above: Order Comment: Speci men Type: BLOOD SPECIMEN Ordering Facility: [facility] Address: [address] [place] [address] Performed By: #### 2 132-9, 27060-4 #### [facility] CLIA [id number] [address] [place] [address] [place] [facility] Magnesium SerPl-mCncon 01-01 Magnesium [Mass/Vol] 2.3 mg/dL Normal 1.7-2.3 [facility] Comment on above: Order Comment: Speci men Type: BLOOD SPECIMEN Ordering Facility: [facility] Address: [address] [place] [address] Performed By: #### 2 132-9, 27366-7 #### [facility] CLIA [id number] [address] [place] [address] [place] TSH SerPl-aCncon 01-01-2025 TSH Qn 1.070 m[IU]/L Normal 0.270-4.[address] [facility] Comment on above: Order Comment: Speci men Type: BLOOD SPECIMEN Ordering Facility: [facility] Address: [address] [place] [address] Performed By: #### 2 132-9, 71707-4 #### [facility] CLIA [id number] [address] [place] [address] [place] Testost SerPl-mCncon 025 Testosterone [Mass/Vol] 353 ng/dL Normal 193-[address] [facility] Comment on above: Order Comment: Speci men Type: BLOOD SPECIMEN Ordering Facility: [facility] Address: [address] [place] [address] Result Comment: A te stosterone level in the 193-320 ng/dL range with associated clinical symptoms is considered low and may indicate hypogonadism (from NEJ 2010 363:123-135). Results >320 ng/dL are considered normal. Performed By: #### 2 132-9, 98493-5 #### [facility] CLIA [id number] [address] [place] [address] [place] Vit B12 [facility] 06-11-2 025 Cobalamin (Vitamin B12) [Mass/Vol] 725 pg/mL Normal 232-[address] [facility] Comment on above: Order Comment: Speci men Type: BLOOD SPECIMEN Ordering Facility: [facility] Address: [address] [place] [address] Performed By: #### 2 132-9, 97908-8 #### [facility] CLIA [id number] [address] [place] [address] OF [facility] CNOVon 12-06-2024 CNOV Office Visit (UCWSTR ) ----- FAISAL ALEXANDER ([id number]) 1985 M Date Time Provider Department 12/06/24 8:15 AM NINA VALENCIA [facility] During your visit today, we recorded the following information about you: Temperature Pulse Respiration Blood pressure 97.9 degrees 91/minute 18/minute 128/90 Weight 122.5 kg Nina Valencia PA-C 12/06/2024 8:28 AM Signed This note was created using [employer]. Subjective Faisal Mata Benjamin is a 39 year old male. Patient is a 39-year-old male who complains of congestion, sore throat and cough that he has been experiencing for the past 3 days. Patient denies sinus pressure or ear pain. Patient states he has noted no fever and has experienced no chills or myalgia. Patient reports that multiple other family members at home are sick with various related symptoms. Sore Throat Associated symptoms include congestion and coughing. Review of Systems HENT: Positive for congestion and sore throat. Respiratory: Positive for cough. All other systems reviewed and are negative. Objective BP 128/90 Pulse 91 Temp 36.6 ?C (97.9 ?F) Resp 18 Wt 122.5 kg (270 lb 1 oz) SpO2 97% BMI 34.67 kg/m? Physical Exam Vitals and nursing note reviewed. Constitutional: Appearance: Normal appearance. He is normal weight. HENT: Head: Normocephalic and atraumatic. Right Ear: Tympanic membrane, ear canal and external ear normal. Left Ear: Tympanic membrane, ear canal and external ear normal. Nose: Nose normal. Mouth/Throat: Mouth: Mucous membranes are moist. Pharynx: Oropharynx is clear. Eyes: Extraocular Movements: Extraocular movements intact. Conjunctiva/sclera: Conjunctivae normal. Pupils: Pupils are equal, round, and reactive to light. Cardiovascular: Rate and Rhythm: Normal rate and regular rhythm. Pulses: Normal pulses. Heart sounds: Normal heart sounds. Pulmonary: Effort: Pulmonary effort is normal. Breath sounds: Normal breath sounds. Musculoskeletal: Cervical back: Normal range of motion and neck supple. Skin: General: Skin is warm and dry. Capillary Refill: Capillary refill takes less than 2 seconds. Neurological: General: No focal deficit present. Mental Status: He is alert and oriented to person, place, and time. Psychiatric: Mood and Affect: Mood normal. Behavior: Behavior normal. Thought Content: Thought content normal. Judgment: Judgment normal. Assessment and Plan Unremarkable physical exam findings as noted above. Rapid strep test is negative. Supportive care instructions were discussed and the patient verbalizes excellent understanding of same. CLINICAL IMPRESSION: Acute URI ASSESSMENT/PLAN: 1. Sore throat - ICD9: 462, ICD10: J02.9 (primary diagnosis) - STREP A MOLECULAR (POC) 2. Acute URI - ICD9: 465.9, ICD10: J06.9 MDM Amount and/or Complexity of Data Reviewed Clinical lab tests: ordered and reviewed Risk of Complications, Morbidity, and/or Mortality Presenting problems: low Diagnostic procedures: low Management options: yuriy Valencia PA-C Allergies As of Date: 12/06/2024 Noted Allergy Reaction PENICILLINS 03/21/2017 4 - Hives 18 - Angioedema Date Reviewed: 12/06/2024 Reviewed by: Gabriella Deng MA - Fully Assessed Reason for Visit: Sore Throat [200] Cmt: GREWAL, cough x3 days Primary Visit Diagnosis:Sore throat [J02.9] Other Visit Diagnosis:Acute URI [J06.9] Order(s):STREP A MOLECULAR (POC) [5009351] Order #: [id number] #:[id number] Prescriptions as of 12/06/2024 - omeprazole (PRILOSEC) 40 mg capsule Take 1 capsule by mouth once daily. - CPAP/BIPAP/OTHER Type .CPAPSettings into a note to see current settings/supplies/DME information. - CPAP/BIPAP/OTHER Type .CPAPSettings into a note to see current settings/supplies/DME information. - multivitamin tablet Take 1 tablet by mouth once daily. Problem List As Of Date 12/06/2024 Noted Resolved Recurrent cold sores [B00.1] 12/11/2013 Well adult exam [Z00.00] 02/19/2014 09/14/2016 History of Helicobacter pylori infection [Z86.1*05/27/2016 Abnormal MRI, lumbar spine [R93.7] 07/23/2017 Acute midline low back pain with left-sided sci*07/23/2017 Lumbosacral neuritis [M54.17] 01/09/2018 GERD without esophagitis [K21.9] 11/12/2019 Encounter for screening for diabetes mellitus [*11/12/2019 Current use of proton pump inhibitor [Z79.899] 11/12/2019 Obesity, Class I, BMI 30-34.9 [E66.811] 02/19/2020 Severe obstructive sleep apnea [G47.33] 02/21/2022 Level of Service: OFFICE/OUTPATIENT [facility] 30 MINUTES [83994] Encounter Status:Closed by NINA VALENCIA on 12/06/[address] [facility] STREP A MOLECULAR (POC)on Procedural Control Valid [facility] Strep A (POCT) Negative Negative [facility] STREP A MOLECULAR (POC)on Procedural Control Valid [facility] Strep A (POCT) Negative Negative [facility] XR Knee - right 4 Viewson IMPRESSION: No acute osseous abnormality Pharmacist Per Diem: BRENDA Transcribe Date/Time: Jun 27 2023 3:49P Dictated by : SKYLAR GU MD This examination was interpreted and the report reviewed and electronically signed by: SKYLAR GU MD on Jun 27 2023 3:50PM [facility] DIVISION OF RADIOLOGY * * *Final Report* * * DATE OF EXAM: Jun 26 2023 12:07PM WOX [id number] - XR KNEE 4V AP/PA BOTH+LAT/ANTONELLA RT / PROCEDURE REASON: Acute pain of right knee * * * * Physician Interpretation * * * * EXAMINATION: XR KNEE 4V AP/PA BOTH+LAT/ANTONELLA RT CLINICAL HISTORY: Right knee pain Technique: XR KNEE 4V AP/PA BOTH+LAT/ANTONELLA RT -- RIGHT with 4 views on 4 images Comparison: None RESULT: No acute fracture or dislocation. Joint spaces are maintained. DIVISION OF RADIOLOGY Provider, [facility] - 06/27/2023 * * *Final Report* * * DATE OF EXAM: Jun 26 2023 12:07PM WOX 5203 - XR KNEE 4V AP/PA BOTH+LAT/ANTONELLA RT / PROCEDURE REASON: Acute pain of right knee * * * * Physician Interpretation * * * * EXAMINATION: XR KNEE 4V AP/PA BOTH+LAT/ANTONELLA RT CLINICAL HISTORY: Right knee pain Technique: XR KNEE 4V AP/PA BOTH+LAT/ANTONELLA RT -- RIGHT with 4 views on 4 images Comparison: None RESULT: No acute fracture or dislocation. Joint spaces are maintained. IMPRESSION IMPRESSION: No acute osseous abnormality Pharmacist Per Diem: BRENDA Transcribe Date/Time: Jun 27 2023 3:49P Dictated by : SKYLAR GU MD This examination was interpreted and the report reviewed and electronically signed by: SKYLAR GU MD on Jun 27 2023 3:50PM EST [facility] XR Knee - right 4 ViewsOrder ed By: Ccf Provider on 06-27-2023 [facility] XR KNEE GENERAL 4V AP BOTH/P A BOTH/LAT/MERC RIGHTon 06-26-2023 [facility] XR Knee - right 4 Viewson Radiology Study observation (narrative) [facility] XR Foot - right AP and Later al and obliqueon 06-22-2023 IMPRESSION: Unremark able right foot x-ray. Pharmacist Per Diem: BRENDA Transcribe Date/Time: Jun 22 2023 1:32P Dictated by : SUZANNE HANSON MD This examination was interpreted and the report reviewed and electronically signed by: SUZANNE HANSON MD on Jun 22 2023 1:35PM [facility] DIVISION OF RADIOLOGY * * *Final Report* * * DATE OF EXAM: Jun 19 2023 2:50PM WOX 5337 - XR FOOT 3V AP/LAT/OBL RT / PROCEDURE REASON: Pain of right heel * * * * Physician Interpretation * * * * EXAM TITLE: XR FOOT 3V AP/LAT/OBL RT EXAM DATE/TIME: 06/19/2023 2:50 PM COMPARISON: None CLINICAL INDICATION/HISTORY: Foot pain TECHNIQUE: AP, lateral and oblique views of the right foot are presented. FINDINGS: No fractures or subluxations are noted. There appears to be an os trigonum. The joint spaces are well preserved. The mineralization of the bones is normal. There is no significant soft tissue swelling. DIVISION OF RADIOLOGY Provider, [facility] - 06/22/2023 * * *Final Report* * * DATE OF EXAM: Jun 19 2023 2:50PM WOX 5337 - XR FOOT 3V AP/LAT/OBL RT / PROCEDURE REASON: Pain of right heel * * * * Physician Interpretation * * * * EXAM TITLE: XR FOOT 3V AP/LAT/OBL RT EXAM DATE/TIME: 06/19/2023 2:50 PM COMPARISON: None CLINICAL INDICATION/HISTORY: Foot pain TECHNIQUE: AP, lateral and oblique views of the right foot are presented. FINDINGS: No fractures or subluxations are noted. There appears to be an os trigonum. The joint spaces are well preserved. The mineralization of the bones is normal. There is no significant soft tissue swelling. IMPRESSION IMPRESSION: Unremarkable right foot x-ray. Pharmacist Per Diem: PSCB Transcribe Date/Time: Jun 22 2023 1:32P Dictated by : SUZANNE HANSON MD This examination was interpreted and the report reviewed and electronically signed by: SUZANNE HANSON MD on Jun 22 2023 1:35PM EST [facility] XR Foot - right AP and Later al and obliqueOrdered By: Ccf Provider on 06-22-2023 [facility] HEMOGLOBIN A1C (EXTERNAL)on 06-21-2023 HbA1c (Bld) [Mass fraction] 5.0 % 0 - 5.7 % [facility] LIPID PANEL (OUTSIDE)on 05-25 Cholesterol [Mass/Vol] 199 mg/dL 200 Cl [facility] Cholesterol in HDL [Mass/Vol] 37 mg/dL Abnormal 40 [facility] Cholesterol in LDL [Mass/Vol] 136 mg/dL Abnormal 130 [facility] LDL:HDL Ratio [facility] Non-HDL Cholesterol [facility] TC:HDL Ratio [facility] Triglyceride [Mass/Vol] 136 mg/dL 150 [facility] VLDL Cholesterol [facility] XR Foot - right AP and Later al and obliqueon 06-19-2023 Radiology Study observation (narrative) [facility] No Panel Informationon 01-03 [facility] UA DIP, URINE (POC)on 2021 BILIRUBIN UA (POCT) Negative Negative [facility] CLARITY UA (POCT) [facility] COLOR UA (POCT) Yellow [facility] GLUCOSE UA (POCT) Negative Negative mg/dL [facility] HEMOGLOBIN/BLOOD UA (POCT) Negative Negative [facility] KETONE UA (POCT) Negative Negative mg/dL [facility] LEUKOCYTES UA (POCT) Negative Negative [facility] NITRITE UA (POCT) Negative Negative [facility] PH UA (POCT) 6.0 4.5 - 8.0 [facility] Protein Ql (U) Negative Negative mg/dL [facility] SPECIFIC GRAVITY UA (POCT) 1.020 1.005 - 1.030 [facility] UROBILINOGEN UA (POCT) 0.2 E.U./dL Zaina l E.U./dL [facility] CNOVon 11-22-2021 CNOV Office Visit (ZOLTAN ) ----- FAISAL ALEXANDER ([id number]) 1985 M Date Time Provider Department 11/22/21 8:30 AM HARIKA HINOJOSA During your visit today, we recorded the following information about you: Blood pressure Weight Height 130/90 118.4 kg 1.88 m Harika Hinojosa PA-C 11/22/2021 12:36 PM Signed ESTABLISHED PATIENT OFFICE VISIT HISTORY OF PRESENT ILLNESS: Faisal Alexander is a 36 year old male, Ht 188 cm (6' 2) BMI 33.51 kg/m2 with a PMH significant for s/p vasectomy, right sided swelling and tenderness over incision. No fever, chills or voiding issues. . LAB: Creatinine Date Value Ref Range Status 03/20/2017 0.95 0.73 - 1.22 mg/dL Final No results found for: PSA Glucose, Urine (mg/dL) Date Value 03/20/2017 neg Bilirubin, Urine (no units) Date Value 03/20/2017 small Ketones, Urine (no units) Date Value 03/20/2017 neg Specific [place], Ur (no units) Date Value 03/20/2017 1.015 Hemoglobin/Blood,Ur (no units) Date Value 03/20/2017 trace pH, Urine (no units) Date Value 03/20/2017 6.0 Protein, Urine (mg/dL) Date Value 03/20/2017 30 Urobilinogen, Urine (EU) Date Value 03/20/2017 normal Nitrites (no units) Date Value 03/20/2017 neg Leukocytes (no units) Date Value 03/20/2017 trace Color/Appearance (comment:) Date Value 03/20/2017 leobardo/clear MEDICATIONS: Omeprazole 40 mg capsule Take 1 capsule by mouth once daily. valACYclovir (VALTREX) 500 mg tablet Take 1 tablet by mouth once daily. multivitamin tablet Take 1 tablet by mouth once daily. sulfamethoxazole-trimetho prim (BACTRIM DS) 800-160 mg per tablet Take 1 tablet by mouth twice daily for 7 days. triazolam (HALCION) 0.25 mg tablet Take 30 minutes prior to procedure. sertraline (ZOLOFT) 50 mg tablet 1/2 a tablet by mouth once a day for 10 days then go to one tablet daily gabapentin (NEURONTIN) 300 mg capsule Take 1 capsule by mouth twice daily for 30 days. Review of Systems HISTORIES PAST MEDICAL HISTORY Diagnosis Date - Abnormal MRI, lumbar spine 07/23/2017 - Acute midline low back pain with left-sided sciatica 07/23/2017 Seeing spine Med - GERD without esophagitis 11/12/2019 - History of Helicobacter pylori infection 05/27/2016 2017 - Lumbosacral neuritis 01/09/2018 Seeing Spine Med - Recurrent cold sores 12/11/2013 FAMILY HISTORY Problem Relation Age of Onset - Multiple Sclerosis Mother - None Father - None Sister Ciliac disease - None Sister - None Brother - Cancer Maternal Grandmother , Breast and esophageal - Cancer Maternal Grandfather stomach - None Paternal Grandmother - Coronary Artery Disease Paternal Grandfather early 50's Social History Tobacco Use - Smoking status: Never Smoker - Smokeless tobacco: Former User Types: Chew Substance Use Topics - Alcohol use: Yes Alcohol/week: 8.3 standard drinks Types: 2 Shots of liquor, 2 Cans of Beer (12oz) per week Comment: occassionally - Drug use: No PHYSICAL EXAMINATION GENERAL APPEARANCE: Well appearing, alert, in no acute distress, well-hydrated, well nourished. Genitourinary: MALE EXAM: left vas incision is closed and healing well, right vas incision with slight separation, 2cm x 2cm inflamed area, under incision is present, tender to touch, no erythema ASSESSMENT/PLAN: 1. S/P vasectomy - ICD9: V26.52, ICD10: Z98.52 Ice and bactrim Harika Hinojosa PA-C Referring Provider: KAVEH SÁNCHEZ [[id number]] Allergies As of Date: 11/22/2021 Noted Allergy Reaction PENICILLINS 03/21/2017 14 - Other: See Comments Comments: Hives and angioedema Date Reviewed: 11/22/2021 Reviewed by: Birgit Gutierrez [facility] - Fully Assessed Reason for Visit: Post-Op Visit [1236] Primary Visit Diagnosis:S/P vasectomy [Z98.52] Order(s):sulfamethoxazole -trimethoprim (BACTRIM DS) 800-160 mg per tabletTake 1 tablet by mouth twice daily for 7 days.Disp: 14 tabletRfl: 0 Prescriptions as of 11/22/2021 - sulfamethoxazole-trimetho prim (BACTRIM DS) 800-160 mg per tablet Take 1 tablet by mouth twice daily for 7 days. - triazolam (HALCION) 0.25 mg tablet Take 30 minutes prior to procedure. - sertraline (ZOLOFT) 50 mg tablet 1/2 a tablet by mouth once a day for 10 days then go to one tablet daily - Omeprazole 40 mg capsule Take 1 capsule by mouth once daily. - valACYclovir (VALTREX) 500 mg tablet Take 1 tablet by mouth once daily. - gabapentin (NEURONTIN) 300 mg capsule Take 1 capsule by mouth twice daily for 30 days. - multivitamin tablet Take 1 tablet by mouth once daily. Problem List As Of Date 11/22/2021 Noted Resolved Recurrent cold sores [B00.1] 12/11/2013 Well adult exam [Z00.00] 02/19/2014 09/14/2016 History of Helicobacter pylori infection [Z86.1*05/27/2016 Abnormal MRI, lumbar spine [R93.7] 07/23/2017 Acute midline low back pain with left-sided sci*07/23/2017 Lumbosacral neuritis [ (more content not included)... Normal [facility] FAISAL ALEXANDER ([id number]) 1985 M Date Time Provider Department 11/17/21 FELIZ VINES During your visit today, we recorded the following information about you: Autumn Brock CMA 11/17/2021 1:23 PM Signed ----- Message from Feliz Vines MD sent at 11/17/2021 12:52 PM EDT ----- The lab results all look good. No change in plan. Autumn Brock CMA 11/17/2021 1:23 PM Signed Pt notified via [employer] Autumn Brock POCKET CUTTER Allergies As of Date: 11/17/2021 Noted Allergy Reaction PENICILLINS 03/21/2017 14 - Other: See Comments Comments: Hives and angioedema Date Reviewed: 11/11/2021 Reviewed by: Brayan Herman Ma - Fully Assessed Reason for Visit: Results [95] Prescriptions as of 11/17/2021 - triazolam (HALCION) 0.25 mg tablet Take 30 minutes prior to procedure. - sertraline (ZOLOFT) 50 mg tablet 1/2 a tablet by mouth once a day for 10 days then go to one tablet daily - Omeprazole 40 mg capsule Take 1 capsule by mouth once daily. - valACYclovir (VALTREX) 500 mg tablet Take 1 tablet by mouth once daily. - gabapentin (NEURONTIN) 300 mg capsule Take 1 capsule by mouth twice daily for 30 days. - multivitamin tablet Take 1 tablet by mouth once daily. Problem List As Of Date 11/17/2021 Noted Resolved Recurrent cold sores [B00.1] 12/11/2013 Well adult exam [Z00.00] 02/19/2014 09/14/2016 History of Helicobacter pylori infection [Z86.1*05/27/2016 Abnormal MRI, lumbar spine [R93.7] 07/23/2017 Acute midline low back pain with left-sided sci*07/23/2017 Lumbosacral neuritis [M54.17] 01/09/2018 GERD without esophagitis [K21.9] 11/12/2019 Encounter for screening for diabetes mellitus [*11/12/2019 Current use of proton pump inhibitor [Z79.899] 11/12/2019 Obesity, Class I, BMI 30-34.9 [E66.9] 02/19/2020 Encounter Status:Closed by AUTUMN BROCK CMA on 11/17/21 [facility] Deepika 10-20-2021 MARGOTH Telephone (KENDALL) ----- FAISAL ALEXANDER ([id number]) 1985 M Date Time Provider Department 10/20/21 FELIZ VINES During your visit today, we recorded the following information about you: Debra Randhawa 10/20/2021 2:47 PM Signed 10/18/21 [facility] Visit w/ Dr. Vines Plan: Vasectomy Sedative ordered, no antibiotic I called and spoke with patient. Appointment made on 11/11/21 2:45 PM Xiomy. He knows to arrive 40-45 minutes prior to sign consent prior to taking sedative. Prep instructions verbalized. Reminder, printed prescription, prep instructions, AND estimate have been mailed. Allergies As of Date: 10/20/2021 Noted Allergy Reaction PENICILLINS 03/21/2017 14 - Other: See Comments Comments: Hives and angioedema Date Reviewed: 02/19/2020 Reviewed by: Nora BoydRn) AIDEL Raya - Fully Assessed Reason for Visit: Follow up [Other] Prescriptions as of 11/09/2021 - triazolam (HALCION) 0.25 mg tablet Take 30 minutes prior to procedure. - sertraline (ZOLOFT) 50 mg tablet 1/2 a tablet by mouth once a day for 10 days then go to one tablet daily - Omeprazole 40 mg capsule Take 1 capsule by mouth once daily. - valACYclovir (VALTREX) 500 mg tablet Take 1 tablet by mouth once daily. - gabapentin (NEURONTIN) 300 mg capsule Take 1 capsule by mouth twice daily for 30 days. - multivitamin tablet Take 1 tablet by mouth once daily. Problem List As Of Date 10/20/2021 Noted Resolved Recurrent cold sores [B00.1] 12/11/2013 Well adult exam [Z00.00] 02/19/2014 09/14/2016 History of Helicobacter pylori infection [Z86.1*05/27/2016 Abnormal MRI, lumbar spine [R93.7] 07/23/2017 Acute midline low back pain with left-sided sci*07/23/2017 Lumbosacral neuritis [M54.17] 01/09/2018 GERD without esophagitis [K21.9] 11/12/2019 Encounter for screening for diabetes mellitus [*11/12/2019 Current use of proton pump inhibitor [Z79.899] 11/12/2019 Obesity, Class I, BMI 30-34.9 [E66.9] 02/19/2020 Encounter Status:Closed by DEBRA RICHARDSON on 10/20/21 [facility] 12 Lead Electrocardiogramon 03-22-2017 12 Lead Electro[facility]ogram [facility] [id number] [place], [place] [id number] Lead [id number]#: [id number] Acct: [id number]: FAISAL ALEXANDER P Rep #: [id number]: 1985 From: Rigo Rendon MDAttbalbir Dr: Status: DEP EROrdering Dr: Maverick Herrera MD Date: 03/16/17Location: ED Sex: M CAdmitted:Test Reason : ALLERGIC REACTIONBlood Pressure : / mmHGVent. Rate : 085 BPM Atrial Rate : 085 BPMP-R Int : 176 ms QRS Dur : 106 msQT Int : 384 ms P-R-T Axes : 044 016 015 degreesQTc Int : 456 msNormal sinus rhythmNormal ECGConfirmed by RIGO RENDON ([id number]), associate editor KENDALL SOSA ([id number]) on 03/17/2017 1:43:58 PMReferred By: CIARA Confirmed By:RIGO RENDON03/17/17 1344Date Rigo Rendon MDCC: Kaveh Sánchez MD Date Dictated: 03/16/172057Date Transcribed: 03/16/172057Transcriptionist:Sign ed Normal [facility] Discharge Instructionon 02-22 Discharge Instruction [facility] [address] [place], [place] [address]Skvpwyvek Wxacjdttrim61/26/17 1241MR#: [id number] Acct: [id number]: FAISAL ALEXANDER P Rep #: [id number]: 1985 31 From: Brandyn Ferguson MDPCP: Kaveh Sánchez MD Status: REG ERED Disposition- Plan for ED Patient:Disposition: Home or Assisted LivingChief Complaint: Allergic ReactionDiagnosis:Allergi c reactionInstructions: ED Allergic Reaction General OtherPrescriptions:Predni SONE 40 mg PO DAILY #10 tabletFamotidine [Pepcid] 20 mg PO BID #28 tabletReferrals:Elmo Sánchez MD [Primary Care Provider] -What to do if you have ProblemsFor any increased pain, shortness of breath, bleeding, nausea or vomiting, chest pain, or anyunexpected problems, contact your Primary Care Provider. Call [facility] ([phone])or report to the closest Emergency Room.Call 911 if necessary.03/18/17 1243 Date Brandyn Ferguson [facility] Signature (If Indicated): Date CC: Kaveh Sánchez MD Normal [facility] Emergency Department Summary on 03-18-2017 Emergency Department Summary [facility] [id number] [place], [place] [address]Rnobjrqwj Department Nxtetgn24/26/17 0916MR#: [id number] Acct: [id number]: FAISAL ALEXANDER Rep #: [id number]: 1985 31 From: Brandyn Ferguson MDPCP: Kaveh Sánchez MD Status: REG ER- ER Visit SummaryDate of Service: 03/18/17Chief Complaint: Allergic reactionHistory of Present Illness: The patient is a 31 M who presents with lip swelling and left-sidedtongue swelling. Started this morning. Patient was seen here 2 days ago with similarsymptoms. He was given IV medications and was sent home with Benadryl and prednisone. At thattime it was thought he was allergic to amoxicillin for which she was taken for sore throat. Hereturns today with a return of symptoms. He has been compliant with Benadryl and prednisone athome. He denies any trouble breathing. He is moving into a new house and they were usingshampoo on the carpet. His daughter is here with a rash on her legs as well. He admits to jose miguel on his feet as well.Physical Examination: Vital signs reviewed. HEENT exam shows that his bottom lip only isswollen. The top lip is normal. He has mild left-sided tongue swelling. There is no uvularswelling or edema.. Heart is regular rate and rhythm without murmurs. Lungs are clear toauscultation. Abdomen is soft and nontender. Extremities reveal no edema. Skin exam shows anerythematous rash on the feet which appears to be urticarial. Neurologic exam normal.Test Results: None indicatedEmergency Department Course and Treatment: She was given Solu-Medrol, Pepcid and Benadryl IV.Max like he was getting worse so he was given epinephrine. He feels mildly improved afterthis. His lip swelling does look better. He states he has itching of his hands. I am unclearthe etiology of the patient's symptoms. It could be from moving into a new house and or theshampoo from the carpeting. At this point he has no tongue swelling. He has never had anyrespiratory compromise. I feel he is safe for discharge. He will continue Benadryl at home.I will extend his prednisone and add Pepcid. He will need to follow-up with his PCP on MondayTreatment Plan: Discharge with medicationsDisposition: DischargeImpression: Allergic reactionED Disposition- Plan for ED Patient:Chief Complaint: Allergic ReactionReferrals:Kaveh Sánchez MD [Primary Care Provider] -What to do if you have ProblemsFor any increased pain, shortness of breath, bleeding, nausea or vomiting, chest pain, or anyunexpected problems, contact your Primary Care Provider. Call [facility] ([phone])or report to the closest Emergency Room.Call 911 if necessary.03/18/17 1241 Date Brandyn Ferguson [facility] Signature (If Indicated): Date CC: Kaveh Sánchez MD Normal [facility] Emergency Department Summary on 03-17-2017 Emergency Department Summary [facility] [address] [place], [place] [address]Hujuotixn Department Gzmsfdy19/24/17 2242#: [id number] Acct: [id number]: FAISAL ALEXANDER Rep #: [id number]: 1985 31 From: Maverick Herrera MDPCP: Kaveh Sánchez MD Status: DEP ER- ER Visit SummaryDate of Service: 03/16/17Chief Complaint: Allergic reactionHistory of Present Illness: The patient is a [address] Sánchez. Patient reports that heis placed on amoxicillin 9 days ago for strep throat and right otitis media. He was doing welluntil approximately noon today when he began developing hives. Patient denies any change insoap, shampoo, laundry detergent, or fabric softener. No new clothing, bedding, carpeting, orpets. He reports that it feels as though his throat is swelling and he has difficultyswallowing.Phys ical Examination:Vitals: Stable. Afebrile.General: Well-nourished and well-developed.Head: Normocephalic atraumatic.Neck: Supple, no lymphadenopathy. No JVD. Nontender. No angioedemaCardiovascular: Regular rate and rhythm. No murmurs.Respiratory: No respiratory distress. Clear to auscultation bilaterally.Abdominal: Soft, nontender, nondistended, normal bowel sounds. No guarding, rebound, orperitoneal signs.Back: Nontender.Extremities: Nontender, no edema.Skin: Urticarial lesions scattered over his upper extremities and trunk.Neurologic: Alert and oriented 3. Cranial nerves II through XII are intact. Normal strengthand sensation.Psych: Normal affect.Test Results: Chest x-ray is normal. EKG is sinus at 85 with no acute changes.Emergency Department Course and Treatment: Patient was treated with Benadryl, Pepcid, andSolu-Medrol IV. The complaints for his throat is completely resolved. The rash is muchimproved.Treatment Plan: Patient will be discharged on 5 days of prednisone and Zyrtec. Instructed tofollow-up with his primary care physician in 1-2 days if not improving. Return to theemergency department for any worsening symptoms.Disposition: To home in improved and stable condition.Impression: 1. Allergic reaction, acute.This note was generated with [employer] dictation software. It may contain incorrect words,spelling, and punctuation that were not noted in review of the chart prior to signing.ED Disposition- Plan for ED Patient:Disposition: Home or Assisted LivingChief Complaint: Allergic ReactionInstructions: ED Allergic Reaction General OtherPrescriptions:Cetiri zine HCl [Zyrtec] 10 mg PO DAILY #14 tab.rapdisPredniSONE 60 mg PO DAILY #15 tabletReferrals:Elmo Sánchez MD [Primary Care Provider] - 1-2 Days if not improvingWhat to do if you have ProblemsFor any increased pain, shortness of breath, bleeding, nausea or vomiting, chest pain, or anyunexpected problems, contact your Primary Care Provider. Call [facility] ([phone])or report to the closest Emergency Room.Call 911 if necessary.03/17/17 0025 Date Maverick Herrera [facility] Signature (If Indicated): Date CC: Kaveh Sánchez MD Normal [facility] Chest 1 View (Portable)on Chest 1 View (Portable) [facility]ITALImaging [id number] [place] [address]Kvdsj 1 View (Portable)MR#: [id number] Acct: [id number]: FAISAL ALEXANDER Rep #: [id number]: 1985 M 31 From: Regulo Ha DOPCP: Kaveh Sánchez MD Status: REG ERStudy: Chest 1 View (Portable) Date of Exam: 03/16/17Exam# [id number] Ordering Dr: Maverick Herrera MDSTUDY: X-RAY CHESTREASON FOR EXAM: Male, 31 years old. Chest painTECHNIQUE: Single frontal viewCOMPARISON: None. FINDINGS:T he lungs are clear and expanded. There is no demonstrated pleuralabnormality.Normal size heart. Normal mediastinum and beti. Normal visualizedpulmonary arteries. Normal visualized aortic arch and descending thoracicaorta.Normal visualized thoracic spine. Normal visualized ribs, clavicles, andshoulders.There is no demonstrated abnormality of the visualized soft tissuestructures of the upper abdomen. ORDER #: [id number] RAD/Chest 1 View (Portable)IMPRESSION:Norm al x-ray examination of the chest.Electronically Signed:Regulo Ha, [id number] at 21:14 EDTTel [phone], Service support , HP: Kaveh Sánchez MD; Maverick Herrera MD Pharmacist Per Diem:Signed Normal [facility] Vital Signs Date Time Vital Sign Value Performing Clinician Compa louie 02-03-2025 07:56-0400 Body mass index (BMI) [Ratio] 34.66 kg/m2 Freddy Neves APRN.CNP Work Phone: [facility] 02-03-2025 07:56-0400 Body weight 118.62 kg Freddy Purasven HARRIS.LACTATION NURSE Work Phone: [facility] 02-03-2025 07:56-0400 Diastolic blood pressure 82 mm[Hg] Freddy Purasven HARRIS.LACTATION NURSE Work Phone: [facility] 02-03-2025 07:56-0400 Heart rate 80 /min Freddy Purasven HARRIS.LACTATION NURSE Work Phone: [facility] 02-03-2025 07:56-0400 Respiratory rate 12 /min Freddy Purasven HARRIS.LACTATION NURSE Work Phone: [facility] 02-03-2025 07:56-0400 Systolic blood pressure 118 mm[Hg] Freddy Neves RODNEY Work Phone: [facility] 01-01-2025 06:54-0400 Body height 185 cm Arline Nielsen PA-C Work Phone: [facility] 01-01-2025 06:54-0400 Body mass index (BMI) [Ratio] 34.86 kg/m2 Arline Nielsen PA-C Work Phone: [facility] 01-01-2025 06:54-0400 Body temperature 97.7 [degF] Arline Nielsen PA-C Work Phone: [facility] 01-01-2025 06:54-0400 Body weight 119.3 kg Arline Nielsen PA-C Work Phone: [facility] 01-01-2025 06:54-0400 Diastolic blood pressure 82 mm[Hg] Arline Nielsen PA-C Work Phone: [facility] 01-01-2025 06:54-0400 Heart rate 94 /min Arline Nielsen PA-C Work Phone: [facility] 01-01-2025 06:54-0400 Respiratory rate 18 /min Arline Nielsen PA-C Work Phone: [facility] 01-01-2025 06:54-0400 SaO2% (BldA) [Mass fraction] 97 % Arline Nielsen PA-C Work Phone: [facility] 01-01-2025 06:54-0400 Systolic blood pressure 110 mm[Hg] Arline Nielsen PA-C Work Phone: [facility] 12-06-2024 08:12-0400 Body mass index (BMI) [Ratio] 34.67 kg/m2 Nina Valencia PA-C Work Phone: [facility] 12-06-2024 08:12-0400 Body temperature 97.9 [degF] Nina Clutter PA-C Work Phone: [facility] 12-06-2024 08:12-0400 Body weight 122.5 kg Nina Clutter PA-C Work Phone: [facility] 12-06-2024 08:12-0400 Diastolic blood pressure 90 mm[Hg] Nina Clutter PA-C Work Phone: [facility] 12-06-2024 08:12-0400 Heart rate 91 /min Nina Clutter PA-C Work Phone: [facility] 12-06-2024 08:12-0400 Respiratory rate 18 /min Nina Clutter PA-C Work Phone: [facility] 12-06-2024 08:12-0400 SaO2% (BldA) [Mass fraction] 97 % Nina Clutter PA-C Work Phone: [facility] 12-06-2024 08:12-0400 Systolic blood pressure 128 mm[Hg] Nina Clutter PA-C Work Phone: [facility] 10-31-2023 15:34-0400 Body temperature 97.59 [degF] Janay Zaidi NEUROPSYCHOLOGY SERVICE DIRECTOR.LACTATION NURSE Work Phone: [facility] 10-31-2023 15:34-0400 Body weight 120.7 kg Janay Zaidi NEUROPSYCHOLOGY SERVICE DIRECTOR.LACTATION NURSE Work Phone: [facility] 10-31-2023 15:34-0400 Diastolic blood pressure 74 mm[Hg] Janay Zaidi NEUROPSYCHOLOGY SERVICE DIRECTOR.LACTATION NURSE Work Phone: [facility] 10-31-2023 15:34-0400 Heart rate 88 /min Janay Zaidi NEUROPSYCHOLOGY SERVICE DIRECTOR.LACTATION NURSE Work Phone: [facility] 10-31-2023 15:34-0400 Respiratory rate 16 /min Janay Zaidi NEUROPSYCHOLOGY SERVICE DIRECTOR.LACTATION NURSE Work Phone: [facility] 10-31-2023 15:34-0400 SaO2% (BldA) [Mass fraction] 96 % Janay Zaidi NEUROPSYCHOLOGY SERVICE DIRECTOR.LACTATION NURSE Work Phone: [facility] 10-31-2023 15:34-0400 Systolic blood pressure 118 mm[Hg] Janay Zaidi NEUROPSYCHOLOGY SERVICE DIRECTOR.LACTATION NURSE Work Phone: [facility] 06-26-2023 11:17-0500 Body weight 122.38 kg Vikram Newby MD Work Phone: [facility] 06-26-2023 11:17-0500 Diastolic blood pressure 76 mm[Hg] Vikram Newby MD Work Phone: [facility] 06-26-2023 11:17-0500 Heart rate 87 /min Vikram Newby MD Work Phone: [facility] 06-26-2023 11:17-0500 Respiratory rate 16 /min Vikram Newby MD Work Phone: [facility] 06-26-2023 11:17-0500 SaO2% (BldA) [Mass fraction] 95 % Vikram Newby MD Work Phone: [facility] 06-26-2023 11:17-0500 Systolic blood pressure 110 mm[Hg] Vikram Newby MD Work Phone: [facility] 03-31-2022 13:43-0400 Body height 188 cm Debra Geiger NEUROPSYCHOLOGY SERVICE DIRECTOR.LACTATION NURSE Work Phone: [facility] 03-31-2022 13:43-0400 Body weight 117.03 kg Debra Geiger NEUROPSYCHOLOGY SERVICE DIRECTOR.LACTATION NURSE Work Phone: [facility] 01-26-2022 10:02-0400 Body height 184.5 cm Fifi Roland NEUROPSYCHOLOGY SERVICE DIRECTOR.LACTATION NURSE Work Phone: [facility] 01-26-2022 10:02-0400 Body weight 119.3 kg Fifi Roland NEUROPSYCHOLOGY SERVICE DIRECTOR.LACTATION NURSE Work Phone: [facility] 01-26-2022 10:02-0400 Diastolic blood pressure 88 mm[Hg] Fifi Mirandaf NEUROPSYCHOLOGY SERVICE DIRECTOR.LACTATION NURSE Work Phone: [facility] 01-26-2022 10:02-0400 Heart rate 97 /min Fifi Tannhof NEUROPSYCHOLOGY SERVICE DIRECTOR.LACTATION NURSE Work Phone: [facility] 01-26-2022 10:02-0400 Respiratory rate 16 /min Fifi Mirandaf NEUROPSYCHOLOGY SERVICE DIRECTOR.LACTATION NURSE Work Phone: [facility] 01-26-2022 10:02-0400 SaO2% (BldA) [Mass fraction] 98 % Fifi Riverohof NEUROPSYCHOLOGY SERVICE DIRECTOR.LACTATION NURSE Work Phone: [facility] 01-26-2022 10:02-0400 Systolic blood pressure 120 mm[Hg] Fifi Mirandaf NEUROPSYCHOLOGY SERVICE DIRECTOR.LACTATION NURSE Work Phone: [facility] 12-28-2021 14:06-0400 Body height 188 cm James Oreilly PA-C Work Phone: [facility] 12-28-2021 14:06-0400 Body temperature 97.39 [degF] James Oreilly PA-C Work Phone: [facility] 12-28-2021 14:06-0400 Body weight 120.2 kg James Oreilly PA-C Work Phone: [facility] 12-28-2021 14:06-0400 Diastolic blood pressure 90 mm[Hg] James Oreilly PA-C Work Phone: [facility] 12-28-2021 14:06-0400 Heart rate 112 /min James Oreilly PA-C Work Phone: [facility] 12-28-2021 14:06-0400 Respiratory rate 14 /min James Oreilly PA-C Work Phone: [facility] 12-28-2021 14:06-0400 SaO2% (BldA) [Mass fraction] 97 % James Oreilly PA-C Work Phone: [facility] 12-28-2021 14:06-0400 Systolic blood pressure 138 mm[Hg] James Oreilly PA-C Work Phone: [facility] 11-22-2021 08:38-0400 Body height 188 cm Harika Giffordk PA-C Work Phone: [facility] 11-22-2021 08:38-0400 Body weight 118.39 kg Harika Hinojosa PA-C Work Phone: [facility] 11-22-2021 08:38-0400 Diastolic blood pressure 90 mm[Hg] Harika Hinojosa PA-C Work Phone: [facility] 11-22-2021 08:38-0400 Systolic blood pressure 130 mm[Hg] Harika Hinojosa PA-C Work Phone: [facility] Encounters Encounter Date Encounter Type Care Provider Facility Start: 02-07-2025 End: 02-19-2025 Follow-up encounter Arline Nielsen PA-C Work Phone: [facility] Comment on above: Results Start: 02-04-2025 End: 02-07-2025 Telephone encounter Freddy Neves APRN.LACTATION NURSE Work Phone: Neurology Comment on above: Orders Start: 02-03-2025 End: 02-03-2025 Patient encounter procedure Freddy Neves APRN.LACTATION NURSE Work Phone: Neurology Comment on above: Obstructive sleep ap yuli (Primary Dx) Start: 02-03-2025 End: 02-03-2025 ambulatory ARLINE NIELSEN Facility:[facility] Start: 01-27-2025 End: 01-27-2025 Refill Kaveh Sánchez MD Work Phone: [facility] Comment on above: Refill Request Start: 01-23-2025 End: 02-03-2025 Telephone encounter Arline Nielsen PA-C Work Phone: [facility] Start: 01-06-2025 End: 01-06-2025 Nursing evaluation of patient and report Mi Nurse Work Phone: [facility] Comment on above: Need for vaccination (Primary Dx) Start: 01-06-2025 End: 01-06-2025 ambulatory KAVEH SÁNCHEZ Facility:[facility] Start: 01-02-2025 End: 01-02-2025 Follow-up encounter Arline Nielsen PA-C Work Phone: [facility] Start: 01-01-2025 Encounter for antibo dy response examination ARLINE NIELSEN [facility] Start: 01-01-2025 Encounter for genera l adult medical examination without abnormal findings ARLINE NIELSEN [facility] Start: 01-01-2025 End: 01-01-2025 Patient encounter procedure Arline Nielsen PA-C Work Phone: [facility] Comment on above: Well adult exam (Suri ginger Dx); Recurrent cold sores; GERD without esophagitis; Severe obstructive sleep apnea; Obesity, Class I, BMI 30-34.9; Fatigue, unspecified type; Low libido; Subacute cough; Current use of proton pump inhibitor; Encounter for lipid screening for cardiovascular disease; Encounter for screening for diabetes mellitus; Immunity status testing; Encounter for screening examination for other mental health and behavioral disorders; Screening for depression Start: 01-01-2025 End: 01-01-2025 Patient encounter status Arline Nielsen PA-C Work Phone: [facility] Start: 01-01-2025 End: 01-01-2025 ambulatory ARLINE NIELSEN Facility:[facility] Start: 12-06-2024 End: 12-06-2024 Office outpatient new 30 minutes Nina Valencia PA-C Work Phone: [facility] Comment on above: Sore throat (Primary Dx); Acute URI Start: 12-06-2024 End: 12-06-2024 ambulatory KAVEH SÁNCHEZ Facility:[facility] Start: 08-06-2024 End: 08-06-2024 Refill Kaveh Sánchez MD Work Phone: [facility] Comment on above: Refill Request Start: 02-21-2024 End: 02-04-2025 ambulatory Debra Geiger APRN.CNP Work Phone: Neurology Comment on above: Cpap Start: 02-20-2024 Refill Kaveh lin MD Work Phone: [facility] Comment on above: Refill Request Start: 10-31-2023 End: 10-31-2023 Patient encounter procedure Janay Zaidi NEUROPSYCHOLOGY SERVICE DIRECTOR.LACTATION NURSE Work Phone: [facility] Comment on above: Pharyngitis, unspeci fied etiology (Primary Dx) Start: 06-27-2023 Telephone encounter Kaveh Sánchez MD Work Phone: [facility] Comment on above: Results Start: 06-26-2023 End: 06-26-2023 Subsequent hospital visit by physician [facility] Work Phone: Radiology Comment on above: Acute pain of right knee [M25.561] Start: 06-26-2023 End: 06-26-2023 Patient encounter procedure Vikram Newby MD Work Phone: [facility] Comment on above: Acute pain of right knee (Primary Dx) Start: 06-22-2023 Telephone encounter Ade degroot APRN.LACTATION NURSE Work Phone: [facility] Comment on above: Results Start: 06-19-2023 End: 06-19-2023 Subsequent hospital visit by physician [facility] Work Phone: Radiology Comment on above: Pain of right heel [ M79.671] Start: 06-19-2023 ambulatory Ade simmons APRN.LACTATION NURSE Work Phone: [facility] Comment on above: Lab reults Start: 06-19-2023 Telephone encounter Ade degroot NEUROPSYCHOLOGY SERVICE DIRECTOR.LACTATION NURSE Work Phone: [facility] Comment on above: Results Start: 06-14-2023 Refill Ade simmons APRN.LACTATION NURSE Work Phone: [facility] Comment on above: Refill Request Start: 03-31-2022 Telephone encounter Debra Geiger APRN.LACTATION NURSE Work Phone: Neurology Comment on above: PAP Therapy Fax Start: 03-31-2022 End: 03-31-2022 ambulatory Debra Geiger APRN.LACTATION NURSE Work Phone: Neurology Comment on above: Severe obstructive s leep apnea (Primary Dx); Obesity, Class I, BMI 30-34.9; Snoring; Witnessed episode of apnea; Unrefreshed by sleep; Excessive daytime sleepiness; Drooling Start: 03-31-2022 End: 03-31-2022 Telemedicine consultation with patient Debra Geiger LACTATION NURSE Work Phone: [facility] Start: 02-21-2022 ambulatory Fifi Luan JEFFRIESLACTATION NURSE Work Phone: [facility] Comment on above: Sleep study Start: 01-28-2022 Chart abstracting [facility] Work Phone: Neurology Start: 01-26-2022 End: 01-26-2022 Patient encounter procedure Fifi Riveroteddyrolanda LACTATION NURSE Work Phone: [facility] Comment on above: Wellness examination (Primary Dx); Daytime sleepiness; Recurrent cold sores; GERD without esophagitis; Screening for diabetes mellitus; Screening cholesterol level; Encounter for immunization Start: 01-26-2022 End: 01-26-2022 Patient encounter status Fifi Roland LACTATION NURSE Work Phone: [facility] Start: 01-03-2022 End: 01-03-2022 Subsequent hospital visit by physician [facility] Work Phone: Radiology Comment on above: Pain in right testic le [N50.811] Start: 12-28-2021 End: 12-28-2021 Patient encounter procedure James Oreilly PA-C Work Phone: Urology Comment on above: Pain in right testic le (Primary Dx); S/P vasectomy Start: 11-22-2021 End: 11-22-2021 Patient encounter procedure Harika Hinojosa PA-C Work Phone: [facility] Comment on above: S/P vasectomy (Prima ry Dx) Start: 11-19-2021 ambulatory Kaveh lin MD Work Phone: [facility] Comment on above: Snoring Start: 11-17-2021 Telephone encounter Feliz Vines MD Work Phone: Urology Comment on above: Results Start: 11-12-2021 Telephone encounter Feliz Vines MD Work Phone: Urology Comment on above: Opened In Error Start: 10-20-2021 Telephone encounter Feliz Vines MD Work Phone: Urology Comment on above: Follow up Start: 10-18-2021 End: 10-18-2021 ambulatory Feliz Vines MD Work Phone: Urology Comment on above: Encounter for steril ization (Primary Dx) Start: 10-18-2021 End: 10-18-2021 Telemedicine consultation with patient Feliz Vines MD Work Phone: [employer] Start: 03-18-2017 End: 03-18-2017 Emergency department patient visit [facility] Facility:[facility] Start: 03-16-2017 End: 03-17-2017 Emergency department patient visit Maverick Rowefgren Facility:[facility] Start: 02-19-2014 End: 09-14-2016 Patient encounter status Kaveh Sánchez MD Work Phone: [facility] Work Phone: Procedures Date Procedure Procedure Detail Performing Clinician Start: 01-01-2025 Adult depression screening assessment Arline Nielsen PA-C Work Phone: Start: 01-01-2025 Lipid 1996 panel - S mikel or Plasma Arline Nielsen PA-C Work Phone: Start: 12-06-2024 STREP A MOLECULAR (POC) Nina Valencia PA-C Work Phone: Start: 10-31-2023 STREP A MOLECULAR (POC) [facility] Start: 06-26-2023 Radiologic exam knee complete 4/more views Vikram Newby MD Work Phone: Start: 06-21-2023 Hemoglobin A1c/Hemoglobin.total in Blood [facility] Provider Start: 06-21-2023 Lipid panel [facility] Provid er Start: 06-21-2023 Lipid 1996 panel - S mikel or Plasma Ade Jason APRN.LACTATION NURSE Work Phone: Start: 06-19-2023 Radex foot complete minimum 3 views Ade Jason NEUROPSYCHOLOGY SERVICE DIRECTOR.LACTATION NURSE Work Phone: Start: 01-26-2022 Adult depression screening assessment Fifi Roland APRN.LACTATION NURSE Work Phone: Start: 01-26-2022 Lipid 1996 panel - S mikel or Plasma Ade Jason NEUROPSYCHOLOGY SERVICE DIRECTOR.LACTATION NURSE Work Phone: Start: 01-03-2022 Dup-scan artl mary lou abdl/pel/scrot&/rpr orgn com James Oreilly PA-C Work Phone: Start: 01-03-2022 Us scrotum & contents B mikey ASHBY-C Work Phone: Start: 12-28-2021 Urnls dip stick/tabl et rgnt auto w/o microscopy James Oreilly PA-C Work Phone: Start: 02-06-2020 Adult depression screening assessment Feliz Vines MD Work Phone: H/O: vasectomy S/P vasectomy Harika pozo PA-C Work Phone: H/O: vasectomy S/P vasectomy James lin PA-C Work Phone: Plan of Treatment Date Care Activity Detail Author Start: 01-27-2032 Urine microalbumin profile [facility] Start: 01-01-2030 Lipid panel Lipid Screening [facility] Start: 06-21-2028 Lipid 1996 panel - S mikel or Plasma Lipid Screening [facility] Start: 06-21-2028 Lipid panel Lipid Screening [facility] Start: 01-26-2027 Lipid 1996 panel - S mikel or Plasma Lipid Screening [facility] Start: 01-06-2026 End: 01-06-2026 Patient encounter procedure 01/06/2026 7:00 AM EDT Office Visit [facility] [address] [place], [place] [phone] Arline Nielsen PA-C [address] [facility] [place] [phone] physical [facility] Comment on above: physical Start: 01-01-2026 Anxiety Screening Anxiety Screening [facility] Start: 01-01-2026 Depression Screening Depression Scre ening [facility] Start: 01-01-2026 Hepatitis C screening Hepatitis C Sc kim [facility] Comment on above: Postponed from 08/21 (Declined at this time) Start: 01-01-2026 HIV screening HIV Screening [facility] Comment on above: Postponed from 08/21 (Declined at this time) Start: 08-08-2025 End: 08-08-2025 Nursing evaluation of patient and report 08/08/2025 12:45 PM EST Nurse Visit [facility] [address] [facility], [place] [address] Nurse, Az [address] [facility], [place] [id number] Hep B #3 [facility] Comment on above: Hep B #3 Start: 05-08-2025 End: 05-08-2025 Patient encounter procedure 05/08/2025 9:00 AM EDT Office Visit Neurology [address] [facility] [place] [address] Freddy Neves, NEUROPSYCHOLOGY SERVICE DIRECTOR.LACTATION NURSE [address] [place] [address] 3 month follow up Neurology Comment on above: 3 month follow up Start: 03-24-2025 Influenza vaccination [facility] Start: 02-03-2025 End: 02-03-2025 Nursing evaluation of patient and report 02/03/2025 9:15 AM EDT Nurse Visit [facility] [address] [facility] [place] [address] Nurse, Az [address] [facility] [place] [address] Hep B #2 [facility] Comment on above: Hep B #2 Start: 02-03-2025 End: 02-03-2025 Patient encounter procedure 02/03/2025 8:00 AM EDT Office Visit Neurology [address] [facility] [place] [address] Freddy Neves, NEUROPSYCHOLOGY SERVICE DIRECTOR.LACTATION NURSE [address] [place] [address] [facility] Comment on above: jaymie Start: 02-01-2025 End: 05-03-2025 TESTOSTERONE, FREE AND TOTAL, BY EQUILIBRIUM DIALYSIS AND MASS SPECTROMETRY TESTOSTERONE, FREE AND TOTAL, BY EQUILIBRIUM DIALYSIS AND MASS SPECTROMETRY Lab Routine Fatigue, unspecified type Low libido Expected: 02/01/2025, Expires: 05/03/2025 [facility] Comment on above: Expected: 02/01/2025 , Expires: 05/03/2025 Start: 01-06-2025 End: 01-06-2025 Nursing evaluation of patient and report 01/06/2025 12:30 PM EDT Nurse Visit [facility] [address] [place], [place] [phone] Nurse, Az [address] [place], [place] [phone] 1st Hep B [facility] Comment on above: 1st Hep B Start: 01-01-2025 End: 04-02-2025 CBC W Auto Differential panel - Blood [facility] Comment on above: Expected: 01/01/2025 , Expires: 04/02/2025 Start: 01-01-2025 End: 04-02-2025 Cobalamin (Vitamin B12) [Mass/volume] in Serum or Plasma [facility] Comment on above: Expected: 01/01/2025 , Expires: 04/02/2025 Start: 01-01-2025 End: 04-02-2025 Comprehensive metabolic 2000 panel - Serum or Plasma [facility] Comment on above: Expected: 01/01/2025 , Expires: 04/02/2025 Start: 01-01-2025 End: 04-02-2025 Hemoglobin A1c in Blood [facility] Comment on above: Expected: 01/01/2025 , Expires: 04/02/2025 Start: 01-01-2025 End: 04-02-2025 Hepatitis B virus surface Ab [Presence] in Serum [facility] Comment on above: Expected: 01/01/2025 , Expires: 04/02/2025 Start: 01-01-2025 End: 04-02-2025 LIPID PANEL, NONFASTING [facility] Comment on above: Expected: 01/01/2025 , Expires: 04/02/2025 Start: 01-01-2025 End: 04-02-2025 Magnesium [Mass/volume] in Serum or Plasma [facility] Comment on above: Expected: 01/01/2025 , Expires: 04/02/2025 Start: 01-01-2025 End: 04-02-2025 Testosterone [Mass/volume] in Serum or Plasma [facility] Comment on above: Expected: 01/01/2025 , Expires: 04/02/2025 Start: 01-01-2025 End: 04-02-2025 Thyrotropin [Units/volume] in Serum or Plasma [facility] Work Phone: Comment on above: Expected: 01/01/2025 , Expires: 04/02/2025 Start: 01-01-2025 End: 01-01-2025 Patient encounter procedure 01/01/2025 7:00 AM EDT Office Visit Family Medicine [facility] [address] [place], [place] [phone] Arline Nielsen PA-C [address] [place], [place] [phone] physical [facility] Comment on above: physical Start: 03-24-2024 Influenza vaccination [facility] Start: 01-21-2024 Influenza vaccination Influenza Vacc ine (#1) [facility] Comment on above: Postponed from 03/24 (Declined at this time) Start: 07-24-2023 Behavioral Health Screening Behavioral Health Screening [facility] Start: 03-24-2023 Influenza vaccination Influenza Vacc ine (#1) [facility] Start: 01-26-2023 Adult depression screening assessment DEPRESSION SCREENING [facility] Start: 01-26-2023 COVID-19 VACCINE (#1) COVID-19 VACCI NE (#1) [facility] Comment on above: Postponed from 02/18 (Declined at this time) Start: 01-26-2023 HEPATITIS C SCREENING HEPATITIS C [facility] Comment on above: Postponed from 08/21 (Declined at this time) Start: 01-26-2023 HIV SCREENING HIV SCREENING [facility] Comment on above: Postponed from 08/21 (Declined at this time) Start: 07-24-2022 Depression Assessment Depression Ass essment [facility] Start: 03-24-2022 Influenza vaccination [facility] Start: 01-26-2022 End: 03-28-2022 25-hydroxyvitamin D3 [Mass/volume] in Serum or Plasma [facility] Work Phone: Comment on above: Expected: 01/26/2022 , Expires: 03/28/2022 Start: 01-26-2022 End: 03-28-2022 Cobalamin (Vitamin B12) [Mass/volume] in Serum or Plasma [facility] Work Phone: Comment on above: Expected: 01/26/2022 , Expires: 03/28/2022 Start: 01-26-2022 End: 03-28-2022 Comprehensive metabolic 2000 panel - Serum or Plasma [facility] Work Phone: Comment on above: Expected: 01/26/2022 , Expires: 03/28/2022 Start: 01-26-2022 End: 03-28-2022 Hemoglobin A1c in Blood [facility] Work Phone: Comment on above: Expected: 01/26/2022 , Expires: 03/28/2022 Start: 01-26-2022 End: 03-28-2022 LIPID PANEL, NONFASTING [facility] Work Phone: Comment on above: Expected: 01/26/2022 , Expires: 03/28/2022 Start: 01-26-2022 End: 03-28-2022 Thyrotropin [Units/volume] in Serum or Plasma [facility] Work Phone: Comment on above: Expected: 01/26/2022 , Expires: 03/28/2022 Start: 12-29-2021 End: 01-27-2023 Us scrotum & contents US SCROTUM AND CONTENTS Radiology Routine Pain in right testicle Expected: 12/29/2021, Expires: 01/27/2023 [facility] Work Phone: Comment on above: Expected: 12/29/2021 , Expires: 01/27/2023 Start: 07-25-2021 Urine microalbumin profile DTAP,TDAP,TD (2 - Td or Tdap) [facility] Start: 03-24-2021 Influenza vaccination INFLUENZA (#1) [facility] Start: 02-05-2021 Adult depression screening assessment DEPRESSION SCREENING [facility] Start: 02-11-2014 Hepatitis B Vaccine (3 of 3 - 19+ 3-dose series) Hepatitis B Vaccine (3 of 3 - 19+ 3-dose series) [facility] Start: 2005 Anxiety Screening Anxiety Screening [facility] Start: 2005 Depression Screening Depression Scre ening [facility] Start: 2005 HEPATITIS C SCREENING HEPATITIS C [facility] Start: 2005 Hepatitis C screening Hepatitis C [facility] Start: 2005 HIV SCREENING HIV SCREENING [facility] Start: 2005 HIV screening HIV Screening [facility] Start: 1992 COVID-19 VACCINE (#1) COVID-19 VACCI NE (#1) [facility] Start: 1992 COVID-19 VACCINE (1) COVID-19 VACCIN E (1) [facility] Start: 02-19-1988 Covid-19 Vaccine (#1) Covid-19 Vacci ne (#1) [facility] Start: 1987 HEPATITIS B (1 of 3 - 3-dose series) HEPATITIS B (1 of 3 - 3-dose series) [facility] Hepb vaccine adult 3 dose schedule for im use HEP B VACCINE, 3-DOSE, AGE 20+ YR (ENGERIX-B, RECOMBIVAX HB) Immunization/Injection Routine Encounter for immunization Ordered: 01/02/2025 [facility] Work Phone: Comment on above: Ordered: 01/02/2025 End: 01-26-2023 HOME SLEEP APNEA TEST (HSAT) HOME SLEEP APNEA TEST (HSAT) Procedures Routine Daytime sleepiness 1 Occurrences starting 01/26/2022 until 01/26/2023 [facility] Work Phone: Comment on above: 1 Occurrences starti ng 01/26/2022 until 01/26/2023 POST VOID RESIDUAL POST VOID RES IDUAL Procedures Routine Pain in right testicle Ordered: 12/28/2021 [facility] Work Phone: Comment on above: Ordered: 12/28/2021 Vasectomy uni/bi spx w/postop semen exams VASECTOMY Procedures Routine Encounter for sterilization Ordered: 10/18/2021 [facility] Work Phone: Comment on above: Ordered: 10/18/2021 [facility] Immunizations Immunization Date Immunization Notes Care Provider Elizabeth mckeon 01-06-2025 hepatitis B vaccine, adult dosage Az Nurse Work Phone: [facility] 01-26-2022 tetanus toxoid, redu josias diphtheria toxoid, and acellular pertussis vaccine, adsorbed Fifi Roland APRN.LACTATION NURSE Work Phone: [facility] 04-28-2017 influenza, seasonal, injectable Feliz Vines MD Work Phone: [facility] 04-28-2017 influenza virus vaccine, unspecified formulation Ade Jason APRN.LACTATION NURSE Work Phone: [facility] 05-26-2015 influenza, seasonal, injectable Feliz Vines MD Work Phone: [facility] Work Phone: 11-29-2013 hepatitis B vaccine, adult dosage Nina Clkvng PA-C Work Phone: [facility] 08-14-2013 hepatitis B vaccine, adult dosage Nina Clutter PA-C Work Phone: [facility] 02-07-2012 tetanus toxoid, redu josias diphtheria toxoid, and acellular pertussis vaccine, adsorbed Nina Joelle PA-C Work Phone: [facility] 07-25-2011 tetanus toxoid, redu josias diphtheria toxoid, and acellular pertussis vaccine, adsorbed Feliz Vines MD Work Phone: [facility] Work Phone: 04-02-2001 measles, mumps and rubella virus vaccine Nina Clutter PA-C Work Phone: [facility] 03-21-1994 diphtheria, tetanus toxoids and acellular pertussis vaccine, unspecified formulation Nina Clutter PA-C Work Phone: [facility] 03-21-1994 trivalent poliovirus vaccine, live, oral Nina Clutter PA-C Work Phone: [facility] 03-12-1992 haemophilus influenz ae type b vaccine, PRP-T conjugate Nina Clutter PA-C Work Phone: [facility] 11-09-1989 diphtheria, tetanus toxoids and pertussis vaccine Nina Clutter PA-C Work Phone: [facility] 02-09-1989 diphtheria, tetanus toxoids and pertussis vaccine Nina Clutter PA-C Work Phone: [facility] 02-09-1989 measles, mumps and rubella virus vaccine Nina Clutter PA-C Work Phone: [facility] 02-09-1989 trivalent poliovirus vaccine, live, oral Nina Clutter PA-C Work Phone: [facility] 02-25-1988 diphtheria, tetanus toxoids and pertussis vaccine Nina Clutter PA-C Work Phone: [facility] 02-25-1988 trivalent poliovirus vaccine, live, oral Nina Clutter PA-C Work Phone: [facility] 1987 diphtheria, tetanus toxoids and pertussis vaccine Nina Clutter PA-C Work Phone: [facility] 1987 trivalent poliovirus vaccine, live, oral Nina Clutter PA-C Work Phone: [facility] Payers Date Payer Category Payer [facility] BLUE CARD PPO OOS [id number] 2020 Unknown [employer] BLUE CARD PPO OOS [id number] 2020-Present [phone] [id number] [place], [place] [address] PPO [id number] 2020 Unknown [employer] BLUE CARD PPO OOS [id number] 2020-Present [phone] [id number] [place] [id number] PPO [id number] 2020 Unknown [id number] 2017 Unknown [id number] Social History Date Type Detail Facility Start: 03-31-2022 End: 06-26-2023 Tobacco smoking status NHIS Never smoked tobacco [facility] History of tobacco use Chews Tobacco [facility] Start: 11-01-2020 End: 02-03-2025 Alcohol intake Current drinker of alcohol (finding) [facility] Start: 11-01-2020 End: 06-19-2023 Alcohol intake [facility] Start: 11-01-2020 End: 01-25-2022 History SDOH Alcohol Frequency 5 [facility] Start: 11-01-2020 End: 01-25-2022 History SDOH Alcohol Std Drinks 1 [facility] Start: 11-01-2020 End: 01-25-2022 History SDOH Alcohol Binge 3 [facility] Start: 11-01-2020 End: 01-25-2022 History SDOH Social Connections Get Together 2 [facility] Start: 11-01-2020 History SDOH Social Connections Meetings 98 [facility] Start: 11-01-2020 End: 01-25-2022 History SDOH Financial 4 [facility] Start: 11-01-2020 Education 12 [facility] Start: 1985 Sex Assigned At Not on file C [facility] Start: 10-10-2021 End: 03-21-2022 Exposure to SARS-CoV-2 (event) Not sure [facility] Start: 03-31-2022 End: 06-26-2023 Tobacco use and exposure Former smokeless tobacco user [facility] Work Phone: Start: 01-25-2022 End: 06-19-2023 Social connection and isolation panel [facility] Do you belong to any clubs or organizations such as muslim groups, unions, fraternal or athletic groups, or school groups? Yes [facility] Are you now , , , , never or living with a partner? [facility] How often to you hav e a drink containing alcohol? 2-3 time sa week [facility] How many standard dr inks containing alcohol do you have on a typical day? 1 or 2 [facility] How often do you hav e 6 or more drinks on 1 occasion? Monthly [facility] How hard is it for y ou to pay for the very basics like food, housing, medical care, and heating Not hard at all [facility] Do you feel stress - tense, restless, nervous, or anxious, or unable to sleep at night because your mind is troubled all the time - these days [OSQ] To some extent [facility] (I/We) worried colt er (my/our) food would run out before (I/we) got money to buy more. Never true [facility] In the past 12 month s, was there a time when you were not able to pay the mortgage or rent on time? No [facility] How hard is it for y ou to pay for the very basics like food, housing, medical care, and heating Not very hard [facility] Start: 06-26-2023 Tobacco Comment Uses nicotine pouches as reported 06/26/23 [facility] How often do you hav e 6 or more drinks on 1 occasion? Less than monthly [facility] Do you feel stress - tense, restless, nervous, or anxious, or unable to sleep at night because your mind is troubled all the time - these days [OSQ] Not at all [facility] Functional Status Date Assessment Result Facility 12-31-2024 Total score [AUDIT-C] 4 01/01/20 8:19 AM EDT User, Mychart [facility] 12-31-2024 How often to you hav e a drink containing alcohol? 2-3 times a week 12/31/2024 8:19 AM EDT User, Mychart 2-3 time sa week [facility] 12-31-[address] inks containing alcohol do you have on a typical day? 1 or 2 12/31/2024 8:19 AM EDT User, Mychart 1 or 2 [facility] 12-31-2024 How often do you hav e 6 or more drinks on 1 occasion? Less than monthly 12/31/2024 8:19 AM EDT User, Mychart Less than monthly [facility] 12-17-2014 Are you deaf, or do you have serious difficulty hearing No 12/17/2014 2:18 PM EDT Janine Davis)(Hist), RN No [facility] 12-17-2014 Are you blind, or do you have serious difficulty seeing, even when wearing glasses No 12/17/2014 2:18 PM EDT Janine Davis)(Hist), RN No [facility] 12-17-2014 Do you have serious difficulty walking or climbing stairs No 12/17/2014 2:18 PM EDT Janine Davis)(Hist), RN No [facility] 12-17-2014 Do you have difficul ty dressing or bathing No 12/17/2014 2:18 PM EDT Janine Davis)(Hist), RN No [facility] 12-17-2014 Because of a physica l, mental, or emotional condition, do you have difficulty doing errands alone such as visiting a physician's office or shopping No 12/17/2014 2:18 PM EDT Janine Davis (Rn)(Hist), RN No [facility] Mental Status Date Assessment Result Facility 12-17-2014 Because of a physica l, mental, or emotional condition, do you have serious difficulty concentrating, remembering, or making decisions No 12/17/2014 2:18 PM EDT Janine Davis)(Hist), RN No [facility] Clinical Notes 02-19-2014 to 02-19-2025 Telephone Encounter - Simin Boyce MA - 02/19/2025 4:17 PM EDTTelephone Encounter - Simin Boyce MA - 02/19/2025 4:17 PM EDTTelephone Encounter - Simin Boyce MA - 02/18/2025 2:51 PM EDT Note Date & Type Note Facility 02-19-2025 Telephone encounter Note Pt mailed letter notifying him of multiple attempts made to contact him to review normal results below. If questions to return call to office. Notified pt of results below in letter. Closing encounter. Simin Boyce MA [facility] 02-19-2025 Miscellaneous Notes Pt mailed letter notifying him of multiple attempts made to contact him to review normal results below. If questions to return call to office. Notified pt of results below in letter. Closing encounter. Simin Boyce MA Called and left message on patients voicemail to return call to the office and ask to speak with a FM triage nurse. Simin Boyce MA Mychart message sent to pt notifying him office attempted to reach him by phone with no call back received. Mychart message sent to pt notifying him of results below, if questions to contact office. Will keep encounter open to make sure message is viewed. Once viewed, will close encounter. If message is not read will call patient to relay results below from Provider. Simin Boyce MA Left message for pt to contact office. Buzz Bah LPN Let patient know that his repeat testosterone both free and total are in normal range. Thanks. Arline Nielsen PA-C documented in this encounter [facility] 02-18-2025 Telephone encounter Note Called and left message on patients voicemail to return call to the office and ask to speak with a FM triage nurse. Simin Boyce MA [facility] 02-12-2025 Telephone encounter Note Mychart message sent to pt notifying him office attempted to reach him by phone with no call back received. Mychart message sent to pt notifying him of results below, if questions to contact office. Will keep encounter open to make sure message is viewed. Once viewed, will close encounter. If message is not read will call patient to relay results below from Provider. Simin Boyce MA [facility] 02-07-2025 Telephone encounter Note Left message for pt to contact office. Buzz Bah LPN [facility] 02-07-2025 Telephone encounter Note Let patient know that his repeat testosterone both free and total are in normal range. Thanks. Arline Nielsen PA-C [facility] 02-05-2025 Telephone encounter Note At his appointment I discussed that that might be the case. He'll be ok since he has the sample mask. Freddy Neves APRN.LACTATION NURSE [facility] 02-05-2025 Miscellaneous Notes At his appointment I discussed that that might be the case. He'll be ok since he has the sample mask. Freddy Neves APRN.CNP Valeri from [employer] calls and states that they received orders for CPAP supplies. Insurance will not cover supplies because patient is only 3% compliant on CPAP usage. Patient can purchase supplies online and then if is he compliant for 30 days insurance will cover after another visit with provider. Debra Herman RN documented in this encounter [facility] 02-04-2025 Telephone encounter Note Valeri from [employer] calls and states that they received orders for CPAP supplies. Insurance will not cover supplies because patient is only 3% compliant on CPAP usage. Patient can purchase supplies online and then if is he compliant for 30 days insurance will cover after another visit with provider. Debra Herman RN [facility] 02-03-2025 Telephone encounter Note Patient notified and appt cancelled. Skylar Izquierdo LPN [facility] 02-03-2025 Miscellaneous Notes Patient notified and appt cancelled. Skylar Izquierdo LPN Left message for patient to return call. Currently he is scheduled for a nurse visit for Hepatitis B vaccine. He received a dose on 01/06/25, however, this would be his 3rd dose to complete series he started in 2013. Per Arline Nielsen PA-C: Hep b antibody is negative, meaning he does not have immunity. Order for 3 vaccine placed. May need to get repeat titer next year to make sure he does get immunity. He would not currently need any additional doses unless recheck titer in a year to verify immunity. Skylar Izquierdo LPN documented in this encounter [facility] 02-03-2025 History of Presen t illness Narrative Images from the original note were not included. [facility] Follow up/ Established patient visit Assessment/Plan from last visit: Date of last visit : 03/31/22 IMPRESSION/PLAN: Diagnosis: G47.33 Severe obstructive sleep apnea (primary encounter diagnosis) E66.9 Obesity, Class I, BMI 30-34.9 R06.83 Snoring R06.81 Witnessed episode of apnea G47.8 Unrefreshed by sleep G47.19 Excessive daytime sleepiness K11.7 Drooling Sleep Studies (Reviewed Prior and Current): Home Sleep Test (HST) 02/10/2022 confirms a diagnosis of severe positional (supine related) obstructive sleep apnea. The off-supine related WANDER/AHI was normal. JAYMIE (Total AHI 13.3, Off-Supine AHI 2.9, Supine AHI 37.2) that was associated with a minimum oxygen saturation of 87%. Overview: Mr. Faisal Alexander is a 36 year old male with a PMH of GERD, Obesity who presents via virtual visit for new patient evaluation for Dx: Severe obstructive sleep apnea [G47.33 (ICD-10-CM)]. It started with my complaining about me snoring and my breathing was kind of weird. I don't wake up when our baby is crying. Fatigue during the day. Snoring going on for several years. Fatigue for the past year. will put her hand on his back because he stops breathing. Reports excessive drooling at night. Discussed Home Sleep Test (HST) 02/10/2022 results which confirms a diagnosis of severe positional (supine related) obstructive sleep apnea. The off-supine related WANDER/AHI was normal. JAYMIE (Total AHI 13.3, Off-Supine AHI 2.9, Supine AHI 37.2) that was associated with a minimum oxygen saturation of 87%. The results of this study may represent an underestimation of the degree of obstructive sleep apnea, especially hypopneas, because of the known limitations of HSAT, such as inability to record arousals because EEG is not recorded. Discussed the diagnosis and physiology of obstructive sleep apnea. Discussed the importance of treating JAYMIE, with particular attention given to the comorbidities associated with untreated JAYMIE, which include but are not limited to hypertension, heart disease, stroke, obesity and daytime sleepiness that can affect normal daytime functioning. Treatment options for sleep apnea, including positive airway pressure (PAP) therapy, surgery, oral appliance and conservative measures (avoidance of alcohol, sedative medications and sleeping in the back position, management of nasal obstruction and weight loss), should be individualized. PAP therapy may be considered in patients with documented symptoms of daytime sleepiness, impaired cognition, mood disorder, insomnia, or documented hypertension, ischemic heart disease, or history of stroke. Plan: - Start AutoCPAP 6-15 cmH2O with formal mask fitting and patient mask preference. New to PAP therapy. - I will have a prescription sent to a [employer] ([employer] medical [employer]) company - [email or web address]. who will be calling you in the next 1-2 weeks. Please call them directly or us if you do not hear from them in this time frame. [employer] Contact Information: [employer] [place] - Please consider side sleeping or sleeping upright in a recliner until starting AutoPAP therapy. - You should be eligible for new supplies approximately every 3-6 months, depending on your insurance coverage. - If your mask doesn't fit well, call the [employer] company before 30 days are up to get a new mask without an additional charge. - We encourage a healthy lifestyle with adequate sleep (7-8 hours), diet and exercise. - Avoid driving when drowsy. Would recommend that if you are dozing off while driving, that you do not drive until your sleep apnea and sleepiness are appropriately treated. - Avoid the use of alcohol, sedatives, and narcotic pain medication at bedtime Insurance requirements: - Your insurance requires a [id number] follow up visit within a 31-90 day period after starting PAP machine (aim for ~ 60 days). At that visit, we will get a data download to ensure tolerance, compliance, and efficacy. - Your insurance requires compliance with PAP, which is at least 4 hours per night for 70% of the time. This must be done over a 30 day period and must occur within the initial 31-90 day period after starting CPAP. - Your insurance also requires at least yearly follow ups to continue to pay for CPAP supplies. Follow up: - Follow up in 60 days after your PAP machine arrives. Remember to contact office as soon as you get your machine to set up 60 days follow up appointment or virtual visit to ensure the best time for you. Please bring machine with you if following up in office. - If you have questions or concerns prior to your next office visit, feel free to send me a [employer] message or contact [place] office at [phone] (after hours, leave message at [phone]). I spent a total of 55 minutes as this was a new patient to me on the date of the service which included preparing to see the patient, [id number] patient care, completing clinical documentation, counseling and educating the patient/family/caregiver and ordering medications, tests, or procedures. Debra Geiger, STEVEN.LACTATION NURSE CURRENT VISIT: 02/03/2025 Faisal Alexander is a 39 year old male with at least mild JAYMIE which is exacerbated to severe in supine sleep He wants to resume CPAP He felt great when he used CPAP Nasal congestion while wearing mask and he would wake in night after taking mask off Had nasal cradle type of mask Sleeps side or back His sleep is non-restorative Bedtime is 10-1030 PM, falls asleep right away, no WASO, gets up 630 AM No naps SLEEP APNEA Sleep apnea type : JAYMIE, Most Recent Apnea-Hypopnea Index (AHI): 13.3 on HSAT, supine 37.2 Treatment : PAP therapy [employer]: [email or web address] PAP History: Current PAP settin-15 cm H2O. PATIENT-ENTERED QUESTIONNAIRE SLEEP SCORES: 02/02/2025 Sleep Questions Reason for visit: Sleep apnea Excessive daytime sleepiness On average, hours of sleep in 24 hours: 7 Average hours of CPAP per night: 0 Percent of nights CPAP used at least 4 hours: 0 Accidents or near accidents due to drowsy drivin Multiple values from one day are sorted in reverse-chronological order 02/02/2025 [place] Sleepiness Scale Score 4 (No clinically significant daytime sleepiness) 02/06/2020 02/02/2025 PROMIS CAT Sleep Disturbance PROMIS Sleep Disturbance T-Score 44 (within normal limits) 54 (within normal limits) PROMIS Sleep Disturbance Percentile 73 34 12/31/2024 01/01/2025 02/02/2025 PHQ-9 Score 0 0 3 01/25/2022 06/19/2023 12/31/2024 PROMIS Global Health - (T-Scores - the mean of general population = 50. Five points is a clinically meaningful difference.) Physical T-Score 50.8 47.7 47.7 Mental T-Score 48.3 53.3 56 02/06/2020 PROMIS CAT Sleep Disturbance PROMIS Sleep Disturbance T-Score 44 (within normal limits) PROMIS Sleep Disturbance Percentile 73 02/06/2020 12/31/2024 01/01/2025 PHQ-9 Score 0 0 0 01/25/2022 06/19/2023 12/31/2024 PROMIS Global Health - (T-Scores - the mean of general population = 50. Five points is a clinically meaningful difference.) Physical T-Score 50.8 47.7 47.7 Mental T-Score 48.3 53.3 56 ALLERGIES Allergen Reactions Penicillins Hives, Angioedema CURRENT MEDICATIONS: omeprazole (PRILOSEC) 40 mg capsule Take 1 capsule by mouth once daily. valACYclovir (VALTREX) 500 mg tablet Take 1 tablet by mouth once daily as needed. albuterol HFA (PROVENTIL HFA, VENTOLIN HFA) 90 mcg/actuation inhaler Inhale 2 puffs as instructed every 6 hours as needed for wheezing/shortness of breath. CPAP/BIPAP/OTHER Type .CPAPSettings into a note to see current settings/supplies/DME information. multivitamin tablet Take 1 tablet by mouth once daily. Benzonatate 200 mg capsule Take 1 capsule by mouth three times a day as needed. PHYSICAL EXAMINATION: Vital Signs: BP 118/82 Pulse 80 Resp 12 Wt 118.6 kg (261 lb 8 oz) BMI 34.66 kg/m PHYSICAL EXAM: General appearance: pleasant, NAD Mental status: alert and oriented, able to provide own history Constitutional: overweight Skin: No visible rashes on exposed skin Neuro: No focal deficits observed, no tremors Has a jauregui Assessment /Plan Obstructive sleep apnea (primary encounter diagnosis) Faisal Alexander is a 39 year old male with at least mild JAYMIE which is exacerbated to severe in supine sleep. He sleeps supine and side. He found auto CPAP to be very beneficial however he frequently took of his nasal mask in the middle of the night. Doesn't have issues with nasal congestion otherwise. He would like to use PAP regularly. He is very willing to try a FFM to prevent the issue with taking off mask in his sleep due to nasal obstruction/congestion, which likely occurs in supine REM sleep. Switch to [facility] since more convenient than [facility] Sample AirFit F40, sz med cushion seems to fit (it's a fit pack so small and large cushions are available. He can let me know if he wants this mask and I can prescribe it. - Continue Auto CPAP at 6-15 cmH2O. Order to [facility]. - Remember to clean your mask and equipment regularly, as directed. - You should be eligible for new supplies approximately every 3-6 months, depending on your insurance coverage. Contact your Durable Medical Equipment (DME) company for new supplies as needed. - Follow up in 3 months with [facility]. Freddy Neves APRN.CNP documented in this encounter [facility] 02-03-2025 Note HNO ID: [id number] Author: FREDDY NEVES APRN.CNP Service: ? Author Type: Nurse Practitioner Type: Progress Notes Filed: 02/03/2025 08:43 Note Text: [facility] Follow up/ Established patient visit Assessment/Plan from last visit: Date of last visit : 03/31/22 IMPRESSION/PLAN: Diagnosis: G47.33 Severe obstructive sleep apnea (primary encounter diagnosis) E66.9 Obesity, Class I, BMI 30-34.9 R06.83 Snoring R06.81 Witnessed episode of apnea G47.8 Unrefreshed by sleep G47.19 Excessive daytime sleepiness K11.7 Drooling Sleep Studies (Reviewed Prior and Current): Home Sleep Test (HST) 02/10/2022 confirms a diagnosis of severe positional (supine related) obstructive sleep apnea. The off-supine related WANDER/AHI was normal. JAYMIE (Total AHI 13.3, Off-Supine AHI 2.9, Supine AHI 37.2) that was associated with a minimum oxygen saturation of 87%. Overview: Mr. Faisal Alexander is a 36 year old male with a PMH of GERD, Obesity who presents via virtual visit for new patient evaluation for Dx: Severe obstructive sleep apnea [G47.33 (ICD-10-CM)]. It started with my complaining about me snoring and my breathing was kind of weird. I don't wake up when our baby is crying. Fatigue during the day. Snoring going on for several years. Fatigue for the past year. will put her hand on his back because he stops breathing. Reports excessive drooling at night. Discussed Home Sleep Test (HST) 02/10/2022 results which confirms a diagnosis of severe positional (supine related) obstructive sleep apnea. The off-supine related WANDER/AHI was normal. JAYMIE (Total AHI 13.3, Off-Supine AHI 2.9, Supine AHI 37.2) that was associated with a minimum oxygen saturation of 87%. The results of this study may represent an underestimation of the degree of obstructive sleep apnea, especially hypopneas, because of the known limitations of HSAT, such as inability to record arousals because EEG is not recorded. Discussed the diagnosis and physiology of obstructive sleep apnea. Discussed the importance of treating JAYMIE, with particular attention given to the comorbidities associated with untreated JAYMIE, which include but are not limited to hypertension, heart disease, stroke, obesity and daytime sleepiness that can affect normal daytime functioning. Treatment options for sleep apnea, including positive airway pressure (PAP) therapy, surgery, oral appliance and conservative measures (avoidance of alcohol, sedative medications and sleeping in the back position, management of nasal obstruction and weight loss), should be individualized. PAP therapy may be considered in patients with documented symptoms of daytime sleepiness, impaired cognition, mood disorder, insomnia, or documented hypertension, ischemic heart disease, or history of stroke. Plan: - Start AutoCPAP 6-15 cmH2O with formal mask fitting and patient mask preference. New to PAP therapy. - I will have a prescription sent to a [employer] ([employer]) company - [email or web address]. who will be calling you in the next 1-2 weeks. Please call them directly or us if you do not hear from them in this time frame. DME Contact Information: [employer] [place] - Please consider side sleeping or sleeping upright in a recliner until starting AutoPAP therapy. - You should be eligible for new supplies approximately every 3-6 months, depending on your insurance coverage. - If your mask doesn't fit well, call the [employer] company before 30 days are up to get a new mask without an additional charge. - We encourage a healthy lifestyle with adequate sleep (7-8 hours), diet and exercise. - Avoid driving when drowsy. Would recommend that if you are dozing off while driving, that you do not drive until your sleep apnea and sleepiness are appropriately treated. - Avoid the use of alcohol, sedatives, and narcotic pain medication at bedtime Insurance requirements: - Your insurance requires a [id number] follow up visit within a 31-90 day period after starting PAP machine (aim for ~ 60 days). At that visit, we will get a data download to ensure tolerance, compliance, and efficacy. - Your insurance requires compliance with PAP, which is at least 4 hours per night for 70% of the time. This must be done over a 30 day period and must occur within the initial 31-90 day period after starting CPAP. - Your insurance also requires at least yearly follow ups to continue to pay for CPAP supplies. Follow up: - Follow up in 60 days after your PAP machine arrives. Remember to contact office as soon as you get your machine to set up 60 days follow up appointment or virtual visit to ensure the best time for you. Please bring machine with you if following up in office. - If you have questions or concerns prior to your next office visit (more content not included)... [facility] 01-27-2025 Telephone encounter Note The patient has been identified by name and date of : Yes Caregiver verified no other encounters exist for this prescription request: Yes Caregiver confirmed with patient/requestor that no other refills are due, in the near future, with this provider at this time: Yes The last office visit in the department: 01/01/2025 Does the patient have a future office visit with this provider/department: 02/03/2025 Requested Prescriptions Pending Prescriptions Disp Refills omeprazole (PRILOSEC) 40 mg capsule 30 capsule 5 Sig: Take 1 capsule by mouth once daily. Shanda Olsen RN January 27, 2025 11:21 AM [facility] 01-27-2025 Miscellaneous Notes The patient has been identified by name and date of : Yes Caregiver verified no other encounters exist for this prescription request: Yes Caregiver confirmed with patient/requestor that no other refills are due, in the near future, with this provider at this time: Yes The last office visit in the department: 01/01/2025 Does the patient have a future office visit with this provider/department: 02/03/2025 Requested Prescriptions Pending Prescriptions Disp Refills omeprazole (PRILOSEC) 40 mg capsule 30 capsule 5 Sig: Take 1 capsule by mouth once daily. Shanda Olsen RN January 27, 2025 11:21 AM documented in this encounter [facility] 01-23-2025 Telephone encounter Note Left message for patient to return call. Currently he is scheduled for a nurse visit for Hepatitis B vaccine. He received a dose on 01/06/25, however, this would be his 3rd dose to complete series he started in 2013. Per Arline Nielsen PA-C: Hep b antibody is negative, meaning he does not have immunity. Order for 3 vaccine placed. May need to get repeat titer next year to make sure he does get immunity. He would not currently need any additional doses unless recheck titer in a year to verify immunity. Skylar Izquierdo LPN [facility] 01-07-2025 Note HNO ID: [id number] Author: JUDIE MARTIN LPN Service: ? Author Type: LICENSED NURSE Type: Progress Notes Filed: 01/07/2025 17:28 Note Text: Patient presents for Hepatitis B vaccine. Denies any problems at this time. Tolerated injection well with no complaints. Judie Martni LPN [facility] 01-07-2025 History of Presen t illness Narrative Patient presents for Hepatitis B vaccine. Denies any problems at this time. Tolerated injection well with no complaints. Judie Martin LPN documented in this encounter [facility] 01-02-2025 Telephone encounter Note Patient notified of results and provider's instructions. Patient verbalizes understanding. NV scheduled for 1 st Hep B. Buzz Bah LPN [facility] 01-02-2025 Miscellaneous Notes Patient notified of results and provider's instructions. Patient verbalizes understanding. NV scheduled for 1 st Hep B. Buzz Bah LPN Let patient know that his cholesterol increased again. LDL at 144 with goal closer to 100. Testosterone is on low side of normal. Recommend regular exercise, healthy dietary changes and recheck levels in 1-2 months. Fasting first thing in morning. Hep b antibody is negative, meaning he does not have immunity. Order for 3 vaccine placed. May need to get repeat titer next year to make sure he does get immunity. The rest of his labs are normal. Arline Nielsen PA-C documented in this encounter [facility] 01-02-2025 Telephone encounter Note Let patient know that his cholesterol increased again. LDL at 144 with goal closer to 100. Testosterone is on low side of normal. Recommend regular exercise, healthy dietary changes and recheck levels in 1-2 months. Fasting first thing in morning. Hep b antibody is negative, meaning he does not have immunity. Order for 3 vaccine placed. May need to get repeat titer next year to make sure he does get immunity. The rest of his labs are normal. Arline Nielsen PA-C [facility] 01-01-2025 Note HNO ID: [id number] Author: ARLINE NIELSEN PA-C Service: ? Author Type: Physician [employer] Type: Progress Notes Filed: 01/01/2025 08:00 Note Text: Chief Complaint Patient presents with: Yearly Exam HPI Faisal Alexander is a 39 year old male who presents here today for physical. . Patient with hx of JAYMIE, GERD, recurrent cold sores, obesity and those as below. Annual Wellness Exam: - No changes in medical or surgical history since last visit. - Uses nicotine pouches; denies smoking or vaping. - Received two Hepatitis B vaccinations in 2013; unsure if the third dose was administered. Did get all childhood immunizations. Cough: - Persistent dry cough x3-4 weeks, primarily nocturnal. - Reminiscent of a previous cough experienced during a COVID-19 infection. - Denies fevers, sinus congestion, or post-nasal drip. - Not taking any medication for the cough. Fatigue and Decreased Libido: - Reports fatigue and decreased libido, with concerns about low testosterone levels. - Noted improvement in energy levels when compliant with CPAP therapy. - Denies depression, weight changes, or muscle mass loss. - No changes in work or personal life contributing to symptoms. Sleep Apnea: - Diagnosed in 2021; non-compliant with CPAP therapy due to discomfort from nasal pillows. - Insurance requires a new sleep study for CPAP coverage. - Needs new consult to sleep medicine. Herpes Simplex Virus: - Requests renewal of valacyclovir 500 mg, taken PRN for cold sores. Gastroesophageal Reflux Disease: - Takes omeprazole PRN. Past medical history, appointments, medications, allergies reviewed. Previous Medical History PAST MEDICAL HISTORY Diagnosis Date Abnormal MRI, lumbar spine 07/23/2017 Acute midline low back pain with left-sided sciatica 07/23/2017 Seeing spine Med GERD without esophagitis 11/12/2019 History of Helicobacter pylori infection 05/27/20162016 Lumbosacral neuritis 01/09/2018 Seeing Spine Med Recurrent cold sores 12/11/2013 Severe obstructive sleep apnea 02/21/2022 Previous Surgical History PAST SURGICAL HISTORY Procedure Laterality Date ESOPHAGOGASTRODUODENOSCOPY TRANSORAL DIAGNOSTIC 09/21/2016 EGD ESOPHAGOGASTRODUODENOSCOPY TRANSORAL DIAGNOSTIC 10/29/2018 EGD VASECTOMY 11/11/2021 Family History FAMILY HISTORY Problem Relation Age of Onset Multiple Sclerosis Mother None Father None Sister Ciliac disease None Sister None Brother Cancer Maternal Grandmother , Breast and esophageal Cancer Maternal Grandfather stomach None Paternal Grandmother Coronary Artery Disease Paternal Grandfather early 50's Patient Allergies ALLERGIES Allergen Reactions Penicillins Hives, Angioedema Current Medications Current Outpatient Medications on File Prior to Visit Medication Sig omeprazole (PRILOSEC) 40 mg capsule Take 1 capsule by mouth once daily. multivitamin tablet Take 1 tablet by mouth once daily. CPAP/BIPAP/OTHER Type .CPAPSettings into a note to see current settings/supplies/DME information. CPAP/BIPAP/OTHER Type .CPAPSettings into a note to see current settings/supplies/DME information. No current facility-administered medications on file prior to visit. Social History Social History Tobacco Use Smoking status: Never Smokeless tobacco: Former Types: Chew Tobacco comments: Uses nicotine pouches as reported 06/26/23 Vaping Use Vaping status: Never Used Substance Use Topics Alcohol use: Yes Alcohol/week: 4.0 standard drinks of alcohol Types: 2 Shots of liquor, 2 Cans of Beer (12oz) per week Comment: occassionally Drug use: No Review of Symptoms REVIEW OF SYSTEMS GENERAL: No weight loss, malaise or fevers HEENT: No changes in hearing or vision, no nose bleeds or other nasal problems NECK: Negative for lumps, goiter, pain and significant neck swelling RESPIRATORY: See HPI, no shortness of breath or wheezing. CARDIOVASCULAR: Negative for chest pain, leg swelling, hypertension, CHF or palpitations GI: Negative for abdominal discomfort, blood in stools or black stools, change in bowel habit, heart burn, nausea, vomiting : No history of dysuria, frequency or incontinence MUSCULOSKELETAL: Negative for joint pain or swelling, back pain or muscle pain SKIN: Negative for lesions, rash, and itching PSYCH: Negative for sleep disturbance, mood disorder and recent psychosocial stressors HEMATOLOGY/LYMPHOLOGY: Negative for prolonged bleeding, bruising easily or swollen nodes ENDOCRINE: Negative for cold or heat intolerance, polyuria, polydipsia and goiter NEURO: No history of headaches, syncope, paralysis, seizures or tremors SEE HPI EXAM: BP 110/82 (BP Site: Left Arm, BP Position: Sitting, BP Cuff Size: Large Adult) Pulse 94 Temp 36.5 ?C (97.7 ?F) Resp 18 Ht 185 cm (6' 0.84) Wt 119.3 kg (263 lb) SpO2 97% BMI 34.86 kg/m? General Appearance: Well appearing, alert, in no acute (more content not included)... [facility] 01-01-2025 History of Presen t illness Narrative Chief Complaint Patient presents with: Yearly Exam HPI Faisal Alexander is a 39 year old male who presents here today for physical. . Patient with hx of JAYIME, GERD, recurrent cold sores, obesity and those as below. Annual Wellness Exam: - No changes in medical or surgical history since last visit. - Uses nicotine pouches; denies smoking or vaping. - Received two Hepatitis B vaccinations in 2013; unsure if the third dose was administered. Did get all childhood immunizations. Cough: - Persistent dry cough x3-4 weeks, primarily nocturnal. - Reminiscent of a previous cough experienced during a COVID-19 infection. - Denies fevers, sinus congestion, or post-nasal drip. - Not taking any medication for the cough. Fatigue and Decreased Libido: - Reports fatigue and decreased libido, with concerns about low testosterone levels. - Noted improvement in energy levels when compliant with CPAP therapy. - Denies depression, weight changes, or muscle mass loss. - No changes in work or personal life contributing to symptoms. Sleep Apnea: - Diagnosed in 2021; non-compliant with CPAP therapy due to discomfort from nasal pillows. - Insurance requires a new sleep study for CPAP coverage. - Needs new consult to sleep medicine. Herpes Simplex Virus: - Requests renewal of valacyclovir 500 mg, taken PRN for cold sores. Gastroesophageal Reflux Disease: - Takes omeprazole PRN. Past medical history, appointments, medications, allergies reviewed. Previous Medical History PAST MEDICAL HISTORY Diagnosis Date Abnormal MRI, lumbar spine 07/23/2017 Acute midline low back pain with left-sided sciatica 07/23/2017 Seeing spine Med GERD without esophagitis 11/12/2019 History of Helicobacter pylori infection 05/27/20162016 Lumbosacral neuritis 01/09/2018 Seeing Spine Med Recurrent cold sores 12/11/2013 Severe obstructive sleep apnea 02/21/2022 Previous Surgical History PAST SURGICAL HISTORY Procedure Laterality Date ESOPHAGOGASTRODUODENOSCOPY TRANSORAL DIAGNOSTIC 09/21/2016 EGD ESOPHAGOGASTRODUODENOSCOPY TRANSORAL DIAGNOSTIC 10/29/2018 EGD VASECTOMY 11/11/2021 Family History FAMILY HISTORY Problem Relation Age of Onset Multiple Sclerosis Mother None Father None Sister Ciliac disease None Sister None Brother Cancer Maternal Grandmother , Breast and esophageal Cancer Maternal Grandfather stomach None Paternal Grandmother Coronary Artery Disease Paternal Grandfather early 50's Patient Allergies ALLERGIES Allergen Reactions Penicillins Hives, Angioedema Current Medications Current Outpatient Medications on File Prior to Visit Medication Sig omeprazole (PRILOSEC) 40 mg capsule Take 1 capsule by mouth once daily. multivitamin tablet Take 1 tablet by mouth once daily. CPAP/BIPAP/OTHER Type .CPAPSettings into a note to see current settings/supplies/DME information. CPAP/BIPAP/OTHER Type .CPAPSettings into a note to see current settings/supplies/DME information. No current facility-administered medications on file prior to visit. Social History Social History Tobacco Use Smoking status: Never Smokeless tobacco: Former Types: Chew Tobacco comments: Uses nicotine pouches as reported 06/26/23 Vaping Use Vaping status: Never Used Substance Use Topics Alcohol use: Yes Alcohol/week: 4.0 standard drinks of alcohol Types: 2 Shots of liquor, 2 Cans of Beer (12oz) per week Comment: occassionally Drug use: No Review of Symptoms REVIEW OF SYSTEMS GENERAL: No weight loss, malaise or fevers HEENT: No changes in hearing or vision, no nose bleeds or other nasal problems NECK: Negative for lumps, goiter, pain and significant neck swelling RESPIRATORY: See HPI, no shortness of breath or wheezing. CARDIOVASCULAR: Negative for chest pain, leg swelling, hypertension, CHF or palpitations GI: Negative for abdominal discomfort, blood in stools or black stools, change in bowel habit, heart burn, nausea, vomiting : No history of dysuria, frequency or incontinence MUSCULOSKELETAL: Negative for joint pain or swelling, back pain or muscle pain SKIN: Negative for lesions, rash, and itching PSYCH: Negative for sleep disturbance, mood disorder and recent psychosocial stressors HEMATOLOGY/LYMPHOLOGY: Negative for prolonged bleeding, bruising easily or swollen nodes ENDOCRINE: Negative for cold or heat intolerance, polyuria, polydipsia and goiter NEURO: No history of headaches, syncope, paralysis, seizures or tremors SEE HPI EXAM: BP 110/82 (BP Site: Left Arm, BP Position: Sitting, BP Cuff Size: Large Adult) Pulse 94 Temp 36.5 C (97.7 F) Resp 18 Ht 185 cm (6' 0.84) Wt 119.3 kg (263 lb) SpO2 97% BMI 34.86 kg/m General Appearance: Well appearing, alert, in no acute distress, well-hydrated, well nourished. overweight Skin: Skin color, texture, turgor normal, no suspicious rashes or lesions. Head: Normocephalic, no masses, lesions, tenderness or abnormalities. Eyes: Anicteric sclera. Pupils are equally round and reactive to light. Extraocular movements are intact. . Ears: External ears normal, canals clear, TMs pearly tristan. Nose/Sinuses: Nares normal, septum midline, mucosa normal, no drainage or sinus tenderness. Oropharynx: Lips, mucosa, and tongue normal, teeth and gums normal, oropharynx normal. Neck: Supple, no adenopathy; thyroid symmetric, normal size, no bruits. Lungs: Lungs clear to auscultation. No wheezing, rhonchi, rales.. Heart: RRR without murmur, gallop, or rubs. No ectopy. Abdomen: Normal abdominal exam, Abdomen soft, non-tender. Bowel sounds normal. No masses, organomegaly. Extremities: No deformities, edema, skin discoloration, clubbing or cyanosis. Good capillary refill. . Peripheral Pulses: Normal. Neurologic: Gait normal. Reflexes normal and symmetric. Sensation grossly intact.. Health Maintenance List Hepatitis B Vaccine(3 of 3 - 19+ 3-dose series) due on 02/11/2014 Hepatitis C Screening due on 01/01/2026 HIV Screening due on 01/01/2026 Influenza Vaccine(Season Ended) due on 03/24/2025 Depression Screening due on 01/01/2026 Anxiety Screening due on 01/01/2026 Lipid Screening due on 06/21/2028 DTaP,Tdap,Td Vaccine(9 - Td or Tdap) due on 01/27/2032 Covid-19 Vaccine Discontinued Data reviewed N/a Assessment and Plan 1. Well adult exam (Z00.00) - Comprehensive physical examination performed; no abnormalities noted. - Discussed importance of regular exercise and maintaining a healthy lifestyle. - Follow-up in one year unless new issues arise. 2. Recurrent cold sores (B00.1) - Refilled Valacyclovir 500 mg to be taken as needed at onset of symptoms. - Prescription sent to [facility]. 3. GERD without esophagitis (K21.9) - Managed with omeprazole on an as-needed basis. - Discussed potential side effects, including decreased absorption of B12 and magnesium. - Recommended monitoring for any worsening symptoms. 4. Severe obstructive sleep apnea (G47.33) - Patient non-compliant with CPAP therapy due to discomfort with nasal pillows. - Referral to sleep medicine specialist for re-evaluation and potential new sleep study. 5. Obesity, Class I, BMI 30-34.9 (E66.811) - Discussed benefits of regular exercise and weight management. - Encouraged patient to engage in physical activity to improve overall health and potentially increase testosterone levels. 6. Fatigue, unspecified type (R53.83) 7. Low libido (R68.82) - Ordered comprehensive lab work to evaluate potential causes, including testosterone levels, CBC, lipid panel, HbA1c, TSH, and B12. - Discussed potential causes of fatigue and low libido, including low testosterone, anemia, diabetes, thyroid dysfunction, depression, and medication side effects. - Advised patient to complete lab work in the morning for accurate testosterone measurement. - Will consider referral to urology for further evaluation and treatment if testosterone levels are low. - Recommend regular exercise and healthy diet. 8. Subacute cough (R05.2) - Cough persisting for 3-4 weeks, primarily at night; dry and non-productive. - Differential diagnosis includes post-viral cough and potential mild airway hyperreactivity vs GERD or allergies.. - Prescribed cough suppressant and albuterol inhaler to be used as needed at bedtime. - Follow-up in two weeks to assess improvement; instructed to report any worsening symptoms immediately. 9. Current use of proton pump inhibitor (Z79.899) - Patient uses omeprazole as needed for GERD symptoms. - Discussed potential side effects, including decreased absorption of B12 and magnesium. - Recommended monitoring for any worsening symptoms. 10. Encounter for lipid screening for cardiovascular disease (Z13.220) - Ordered lipid panel to assess cardiovascular risk. 11. Encounter for screening for diabetes mellitus (Z13.1) - Ordered HbA1c to screen for diabetes mellitus. 12. Immunity status testing (Z01.84) - Patient received two doses of Hepatitis B vaccine in 2013; third dose not documented. - Ordered Hepatitis B titer to assess immunity status. 13. Encounter for screening examination for other mental health and behavioral disorders (Z13.39) 14. Screening for depression (Z13.31) - No signs of anxiety or depression reported. - Discussed potential impact of f, atigue and low libido on mental health. - Will monitor for any changes in mental health status. Arline Nielsen PA-C Recording using [employer] software for draft documentation of the visit was discussed with the patient/authorized senior account representative; all questions welcomed and answered. Patient/authorized senior account representative agreed to proceed documented in this encounter [facility] 12-06-2024 Note HNO ID: [id number] Author: NINA VALENCIA PA-C Service: ? Author Type: Physician Inspector [employer]ies [employer] Type: Progress Notes Filed: 12/06/2024 08:28 Note Text: This note was created using [employer]. Subjective Faisla Alexander is a 39 year old male. Patient is a 39-year-old male who complains of congestion, sore throat and cough that he has been experiencing for the past 3 days. Patient denies sinus pressure or ear pain. Patient states he has noted no fever and has experienced no chills or myalgia. Patient reports that multiple other family members at home are sick with various related symptoms. Sore Throat Associated symptoms include congestion and coughing. Review of Systems HENT: Positive for congestion and sore throat. Respiratory: Positive for cough. All other systems reviewed and are negative. Objective BP 128/90 Pulse 91 Temp 36.6 ?C (97.9 ?F) Resp 18 Wt 122.5 kg (270 lb 1 oz) SpO2 97% BMI 34.67 kg/m? Physical Exam Vitals and nursing note reviewed. Constitutional: Appearance: Normal appearance. He is normal weight. HENT: Head: Normocephalic and atraumatic. Right Ear: Tympanic membrane, ear canal and external ear normal. Left Ear: Tympanic membrane, ear canal and external ear normal. Nose: Nose normal. Mouth/Throat: Mouth: Mucous membranes are moist. Pharynx: Oropharynx is clear. Eyes: Extraocular Movements: Extraocular movements intact. Conjunctiva/sclera: Conjunctivae normal. Pupils: Pupils are equal, round, and reactive to light. Cardiovascular: Rate and Rhythm: Normal rate and regular rhythm. Pulses: Normal pulses. Heart sounds: Normal heart sounds. Pulmonary: Effort: Pulmonary effort is normal. Breath sounds: Normal breath sounds. Musculoskeletal: Cervical back: Normal range of motion and neck supple. Skin: General: Skin is warm and dry. Capillary Refill: Capillary refill takes less than 2 seconds. Neurological: General: No focal deficit present. Mental Status: He is alert and oriented to person, place, and time. Psychiatric: Mood and Affect: Mood normal. Behavior: Behavior normal. Thought Content: Thought content normal. Judgment: Judgment normal. Assessment and Plan Unremarkable physical exam findings as noted above. Rapid strep test is negative. Supportive care instructions were discussed and the patient verbalizes excellent understanding of same. CLINICAL IMPRESSION: Acute URI ASSESSMENT/PLAN: 1. Sore throat - ICD9: 462, ICD10: J02.9 (primary diagnosis) - STREP A MOLECULAR (POC) 2. Acute URI - ICD9: 465.9, ICD10: J06.9 MDM Amount and/or Complexity of Data Reviewed Clinical lab tests: ordered and reviewed Risk of Complications, Morbidity, and/or Mortality Presenting problems: low Diagnostic procedures: low Management options: yuriy Valencia PA-C [facility] 12-06-2024 History of Presen t illness Narrative This note was created using [employer]. Subjective Faisal Alexander is a 39 year old male. Patient is a 39-year-old male who complains of congestion, sore throat and cough that he has been experiencing for the past 3 days. Patient denies sinus pressure or ear pain. Patient states he has noted no fever and has experienced no chills or myalgia. Patient reports that multiple other family members at home are sick with various related symptoms. Sore Throat Associated symptoms include congestion and coughing. Review of Systems HENT: Positive for congestion and sore throat. Respiratory: Positive for cough. All other systems reviewed and are negative. Objective BP 128/90 Pulse 91 Temp 36.6 C (97.9 F) Resp 18 Wt 122.5 kg (270 lb 1 oz) SpO2 97% BMI 34.67 kg/m Physical Exam Vitals and nursing note reviewed. Constitutional: Appearance: Normal appearance. He is normal weight. HENT: Head: Normocephalic and atraumatic. Right Ear: Tympanic membrane, ear canal and external ear normal. Left Ear: Tympanic membrane, ear canal and external ear normal. Nose: Nose normal. Mouth/Throat: Mouth: Mucous membranes are moist. Pharynx: Oropharynx is clear. Eyes: Extraocular Movements: Extraocular movements intact. Conjunctiva/sclera: Conjunctivae normal. Pupils: Pupils are equal, round, and reactive to light. Cardiovascular: Rate and Rhythm: Normal rate and regular rhythm. Pulses: Normal pulses. Heart sounds: Normal heart sounds. Pulmonary: Effort: Pulmonary effort is normal. Breath sounds: Normal breath sounds. Musculoskeletal: Cervical back: Normal range of motion and neck supple. Skin: General: Skin is warm and dry. Capillary Refill: Capillary refill takes less than 2 seconds. Neurological: General: No focal deficit present. Mental Status: He is alert and oriented to person, place, and time. Psychiatric: Mood and Affect: Mood normal. Behavior: Behavior normal. Thought Content: Thought content normal. Judgment: Judgment normal. Assessment and Plan Unremarkable physical exam findings as noted above. Rapid strep test is negative. Supportive care instructions were discussed and the patient verbalizes excellent understanding of same. CLINICAL IMPRESSION: Acute URI ASSESSMENT/PLAN: 1. Sore throat - ICD9: 462, ICD10: J02.9 (primary diagnosis) - STREP A MOLECULAR (POC) 2. Acute URI - ICD9: 465.9, ICD10: J06.9 MDM Amount and/or Complexity of Data Reviewed Clinical lab tests: ordered and reviewed Risk of Complications, Morbidity, and/or Mortality Presenting problems: low Diagnostic procedures: low Management options: yuriy Valencia PA-C documented in this encounter [facility] 08-06-2024 Telephone encounter Note Prescription Refill Information The patient has been identified by name and date of : Yes Caregiver verified no other encounters exist for this prescription request: Yes Caregiver confirmed with patient/requestor that no other refills are due, in the near future, with this provider at this time: Yes The last office visit in the department: 06/26/2023 Does the patient have a future office visit with this provider/department: NO Requested Prescriptions Pending Prescriptions Disp Refills omeprazole (PRILOSEC) 40 mg capsule 30 capsule 5 Sig: Take 1 capsule by mouth once daily. Mckenzie Rodriguez August 06, 2024 9:54 AM [facility] 08-06-2024 Miscellaneous Notes Prescription Refill Information The patient has been identified by name and date of : Yes Caregiver verified no other encounters exist for this prescription request: Yes Caregiver confirmed with patient/requestor that no other refills are due, in the near future, with this provider at this time: Yes The last office visit in the department: 06/26/2023 Does the patient have a future office visit with this provider/department: NO Requested Prescriptions Pending Prescriptions Disp Refills omeprazole (PRILOSEC) 40 mg capsule 30 capsule 5 Sig: Take 1 capsule by mouth once daily. Mckenzie Rodriguez August 06, 2024 9:54 AM documented in this encounter [facility] 02-20-2024 Telephone encounter Note Prescription Refill Information The patient has been identified by name and date of : Yes Caregiver verified no other encounters exist for this prescription request: Yes Caregiver confirmed with patient/requestor that no other refills are due, in the near future, with this provider at this time: Yes The last office visit in the department: 10/31/23 Does the patient have a future office visit with this provider/department: No Requested Prescriptions Pending Prescriptions Disp Refills omeprazole (PRILOSEC) 40 mg capsule 30 capsule 5 Sig: Take 1 capsule by mouth once daily. Lesly Enciso LPN February 20, 2024 2:40 PM [facility] 02-20-2024 Miscellaneous Notes Prescription Refill Information The patient has been identified by name and date of : Yes Caregiver verified no other encounters exist for this prescription request: Yes Caregiver confirmed with patient/requestor that no other refills are due, in the near future, with this provider at this time: Yes The last office visit in the department: 10/31/23 Does the patient have a future office visit with this provider/department: No Requested Prescriptions Pending Prescriptions Disp Refills omeprazole (PRILOSEC) 40 mg capsule 30 capsule 5 Sig: Take 1 capsule by mouth once daily. Lesly Enciso LPN February 20, 2024 2:40 PM documented in this encounter [facility] 10-31-2023 History of Presen t illness Narrative This note was created using [employer]. Subjective Faisal Alexander is a 38 year old male. 38 year old male with GERD and sleep apnea presents for illness. Acute onset 10/26/23 +sore throat +head congestion +cough +body aches +fatigue States that most of the symptoms have improved, Aside from the sore throat 8 year old tested POS for strep today Nicotine salts The history is provided by the patient. 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 Sore Throat This is a new problem. The current episode started in the past 7 days. The problem has been unchanged. Neither side of throat is experiencing more pain than the other. There has been no fever. The pain is at a severity of 5/10. The pain is moderate. Associated symptoms include congestion and coughing. Pertinent negatives include no abdominal pain, diarrhea, drooling, ear discharge, ear pain, headaches, hoarse voice, plugged ear sensation, neck pain, shortness of breath, stridor, swollen glands, trouble swallowing or vomiting. He has had exposure to strep. He has had no exposure to mono. He has tried nothing for the symptoms. The treatment provided no relief. PAST MEDICAL HISTORY Diagnosis Date Abnormal MRI, lumbar spine 07/23/2017 Acute midline low back pain with left-sided sciatica 07/23/2017 Seeing spine Med GERD without esophagitis 11/12/2019 History of Helicobacter pylori infection 05/27/20162016 Lumbosacral neuritis 01/09/2018 Seeing Spine Med Recurrent cold sores 12/11/2013 Severe obstructive sleep apnea 02/21/2022 PAST SURGICAL HISTORY Procedure Laterality Date ESOPHAGOGASTRODUODENOSCOPY TRANSORAL DIAGNOSTIC 09/21/2016 EGD ESOPHAGOGASTRODUODENOSCOPY TRANSORAL DIAGNOSTIC 10/29/2018 EGD VASECTOMY 11/11/2021 ALLERGIES Penicillins MEDICATIONS valACYclovir (VALTREX) 500 mg tablet Take 1 tablet by mouth once daily as needed. omeprazole (PRILOSEC) 40 mg capsule take one capsule by mouth every day CPAP/BIPAP/OTHER Type .CPAPSettings into a note to see current settings/supplies/DME information. CPAP/BIPAP/OTHER Type .CPAPSettings into a note to see current settings/supplies/DME information. multivitamin tablet Take 1 tablet by mouth once daily. cephALEXin (KEFLEX) 500 mg capsule Take 1 capsule by mouth two times a day for 10 days. FAMILY HISTORY Problem Relation Age of Onset Multiple Sclerosis Mother None Father None Sister Ciliac disease None Sister None Brother Cancer Maternal Grandmother , Breast and esophageal Cancer Maternal Grandfather stomach None Paternal Grandmother Coronary Artery Disease Paternal Grandfather early 50's Social History Tobacco Use Smoking status: Never Smokeless tobacco: Former Types: Chew Tobacco comments: Uses nicotine pouches as reported 06/26/23 Vaping Use Vaping Use: Never used Substance Use Topics Alcohol use: Yes Alcohol/week: 4.0 standard drinks of alcohol Types: 2 Shots of liquor, 2 Cans of Beer (12oz) per week Comment: occassionally Drug use: No Review of Systems Constitutional: Negative for activity change, appetite change and chills. HENT: Positive for congestion and sore throat. Negative for drooling, ear discharge, ear pain, hoarse voice and trouble swallowing. Eyes: Negative for pain, discharge, redness and itching. Respiratory: Positive for cough. Negative for shortness of breath and stridor. Cardiovascular: Negative for chest pain, palpitations and leg swelling. Gastrointestinal: Negative for abdominal pain, diarrhea and vomiting. Musculoskeletal: Negative for neck pain. Skin: Negative for color change, pallor, rash and wound. Allergic/Immunologic: Negative for environmental allergies, food allergies and immunocompromised state. Neurological: Negative for dizziness, facial asymmetry and headaches. Hematological: Negative for adenopathy. Does not bruise/bleed easily. Psychiatric/Behavioral: Negative for agitation and behavioral problems. Objective BP 118/74 Pulse 88 Temp 36.4 C (97.6 F) Resp 16 Wt 120.7 kg (266 lb 1.5 oz) SpO2 96% BMI 34.16 kg/m Physical Exam Vitals and nursing note reviewed. Constitutional: General: He is not in acute distress. Appearance: Normal appearance. He is not ill-appearing, toxic-appearing or diaphoretic. HENT: Head: Normocephalic and atraumatic. Right Ear: External ear normal. Left Ear: External ear normal. Nose: Nose normal. No congestion or rhinorrhea. Mouth/Throat: Mouth: Mucous membranes are moist. Pharynx: Oropharynx is clear. Posterior oropharyngeal erythema (2 + enlarged. Uvula midline. Handling secretions) present. No oropharyngeal exudate. Eyes: General: Right eye: No discharge. Left eye: No discharge. Extraocular Movements: Extraocular movements intact. Conjunctiva/sclera: Conjunctivae normal. Pupils: Pupils are equal, round, and reactive to light. Cardiovascular: Rate and Rhythm: Normal rate and regular rhythm. Pulses: Normal pulses. Heart sounds: Normal heart sounds. No murmur heard. No friction rub. No gallop. Pulmonary: Effort: Pulmonary effort is normal. No respiratory distress. Breath sounds: Normal breath sounds. No stridor. No wheezing, rhonchi or rales. Chest: Chest wall: No tenderness. Abdominal: General: Abdomen is flat. There is no distension. Palpations: Abdomen is soft. There is no mass. Tenderness: There is no abdominal tenderness. There is no guarding or rebound. Hernia: No hernia is present. Musculoskeletal: General: No swelling, tenderness, deformity or signs of injury. Normal range of motion. Cervical back: Normal range of motion and neck supple. No rigidity or tenderness. Right lower leg: No edema. Left lower leg: No edema. Lymphadenopathy: Cervical: Cervical adenopathy present. Skin: General: Skin is warm and dry. Capillary Refill: Capillary refill takes less than 2 seconds. Coloration: Skin is not jaundiced or pale. Findings: No bruising, lesion or rash. Neurological: General: No focal deficit present. Mental Status: He is alert and oriented to person, place, and time. Cranial Nerves: No cranial nerve deficit. Sensory: No sensory deficit. Motor: No weakness. Coordination: Coordination normal. Gait: Gait normal. Deep Tendon Reflexes: Reflexes normal. Psychiatric: Mood and Affect: Mood normal. Behavior: Behavior normal. Thought Content: Thought content normal. Assessment and Plan ASSESSMENT/PLAN: 1. Pharyngitis, unspecified etiology - ICD9: 462, ICD10: J02.9 +exposure via son - Group A strep molecular testing negative - Discussed supportive care treatment with fluids, rest and analgesia. - The patient may also use OTC cough and cold meds as needed and warm salt water gargles, throat lozenges and/or OTC throat spray as needed. - Contagious dz precautions discussed- including considered contagious until on antibiotics for 24 hours - The patient should follow up in 3-5 days if symptoms persist or worsen - Call back if drooling, increased temperature, symptoms of dehydration and/or still sick in one week Safety net [facility] provided Janay Zaidi APRN.ZINA documented in this encounter [facility] 06-27-2023 Miscellaneous Notes Phoned patient and reviewed results and recommendations with him. Patient voice understanding. ----- Message from Vikram Newby MD sent at 06/27/2023 3:59 PM EST ----- Normal knee xray. Continue treatment as discussed in office. documented in this encounter [facility] 06-26-2023 History of Presen t illness Narrative Radiology Service Progress Note PATIENT NAME: Faisal Alexander DATE OF SERVICE: June 26, 2023 TIME: 11:56 AM PATIENT IDENTITY VERIFICATION COMPLETED USING TWO (2) IDENTIFIERS: Name and Date of confirmed by patient verbally. FALL SCREENING: Has the patient had 2 falls in the last year or 1 fall with injury or currently using an Ambulatory Assistive Device (Walker, Cane, Wheelchair, Crutches, etc.)? No PATIENT GENDER DATA: Male PATIENT RELEVANT IMPLANT DATA REVIEWED: Yes RADIOLOGY DEPARTMENT: General X-ray: Exam(s) Completed: Lower Extremity X-Ray(s): Knee, AP / Lat / Tunne / Merchant Left and Wt. Bearing PERIPHERAL IV DATA: Not applicable SIGNED BY: RT Ken(R) June 26, 2023 11:56 AM documented in this encounter [facility] 06-26-2023 History of Presen t illness Narrative Chief Complaint Patient presents with: Knee Pain: Right knee pain since Mon Faisal Alexander is a 37 year old male who presents here today for Above Complaints.. Here today for complaint of right knee pain for 5 days without fall or injury. Described as constant aching pain on the medial aspect of his knee which becomes sharp anterior knee pain after squatting. Currently 09/02, without radiation. Treating with ice and ibuprofen OTC. Admits to popping when he is walking. Denies bruising, redness, warmth to touch, catching, locking up, giving out. Past medical history, appointments, medications, allergies reviewed. Previous Medical History PAST MEDICAL HISTORY Diagnosis Date Abnormal MRI, lumbar spine 07/23/2017 Acute midline low back pain with left-sided sciatica 07/23/2017 Seeing spine Med GERD without esophagitis 11/12/2019 History of Helicobacter pylori infection 05/27/20162016 Lumbosacral neuritis 01/09/2018 Seeing Spine Med Recurrent cold sores 12/11/2013 Severe obstructive sleep apnea 02/21/2022 Previous Surgical History PAST SURGICAL HISTORY Procedure Laterality Date ESOPHAGOGASTRODUODENOSCOPY TRANSORAL DIAGNOSTIC 09/21/2016 EGD ESOPHAGOGASTRODUODENOSCOPY TRANSORAL DIAGNOSTIC 10/29/2018 EGD VASECTOMY 11/11/2021 Family History FAMILY HISTORY Problem Relation Age of Onset Multiple Sclerosis Mother None Father None Sister Ciliac disease None Sister None Brother Cancer Maternal Grandmother , Breast and esophageal Cancer Maternal Grandfather stomach None Paternal Grandmother Coronary Artery Disease Paternal Grandfather early 50's Patient Allergies ALLERGIES Allergen Reactions Penicillins Other: See Comments Hives and angioedema Current Medications Current Outpatient Medications on File Prior to Visit Medication Sig omeprazole (PRILOSEC) 40 mg capsule take one capsule by mouth every day CPAP/BIPAP/OTHER Type .CPAPSettings into a note to see current settings/supplies/DME information. CPAP/BIPAP/OTHER Type .CPAPSettings into a note to see current settings/supplies/DME information. multivitamin tablet Take 1 tablet by mouth once daily. No current facility-administered medications on file prior to visit. Social History Social History Tobacco Use Smoking status: Never Smokeless tobacco: Former Types: Chew Tobacco comments: Uses nicotine pouches as reported 06/26/23 Vaping Use Vaping Use: Never used Substance Use Topics Alcohol use: Yes Alcohol/week: 4.0 standard drinks of alcohol Types: 2 Shots of liquor, 2 Cans of Beer (12oz) per week Comment: occassionally Drug use: No Review of Symptoms REVIEW OF SYSTEMS See HPI EXAM: BP 110/76 Pulse 87 Resp 16 Wt 122.4 kg (269 lb 12.8 oz) SpO2 95% BMI 34.64 kg/m General Appearance: Well appearing, alert, in no acute distress, well-hydrated, well nourished.. Skin: Skin color, texture, turgor normal, no suspicious rashes or lesions. KNEE:Location: Right Redness: No. Warmth: No. Crepitus: No. Effusion: No. Joint line tenderness: No. Lateral tenderness: No. Medial tenderness: Yes. Drawer sign negative: Yes Medial or lateral laxity: No. Sourav's sign: No. Health Maintenance List Hepatitis C Screening Never done HIV Screening Never done Hepatitis B Vaccine(3 of 3 - 19+ 3-dose series) due on 02/11/2014 Influenza Vaccine(1) due on 01/21/2024 Lipid Screening due on 06/21/2028 DTaP,Tdap,Td Vaccine(9 - Td or Tdap) due on 01/27/2032 Depression Assessment Completed HPV Vaccine Aged Out Covid-19 Vaccine Discontinued ASSESSMENT/PLAN: 1. Acute pain of right knee - ICD9: 719.46, ICD10: M25.561 Mild TTP over medial apect of knee today, but exam is otherwise normal. Obtain xray. Discussed RICE therapy and NSAIDs as prescribed. Call if not improving in next 2-3 weeks. - XR KNEE GENERAL 4V AP BOTH/PA BOTH/LAT/MERC RIGHT Vikram Newby MD documented in this encounter [facility] 06-22-2023 Miscellaneous Notes Pt notified and verbalized understanding Blanche Ling Cma Please let patient know their xray is normal. documented in this encounter [facility] 06-19-2023 Miscellaneous Notes Please upload to patient's chart. documented in this encounter [facility] 06-19-2023 History of Presen t illness Narrative Radiology Service Progress Note PATIENT NAME: Faisal Alexander DATE OF SERVICE: June 19, 2023 TIME: 2:41 PM PATIENT IDENTITY VERIFICATION COMPLETED USING TWO (2) IDENTIFIERS: Name and Date of confirmed by patient verbally. FALL SCREENING: Has the patient had 2 falls in the last year or 1 fall with injury or currently using an Ambulatory Assistive Device (Walker, Cane, Wheelchair, Crutches, etc.)? No PATIENT GENDER DATA: Male PATIENT RELEVANT IMPLANT DATA REVIEWED: Yes RADIOLOGY DEPARTMENT: General X-ray: Exam(s) Completed: Lower Extremity X-Ray(s): Foot, Right and Wt. Bearing PERIPHERAL IV DATA: Not applicable SIGNED BY: RT Ken(R) June 19, 2023 2:41 PM documented in this encounter [facility] 06-14-2023 Miscellaneous Notes Patient has been identified by name and date of : Yes, Provider Dr. Sánchez Date 06/14/23 Time 8:29 am Pharmacy phones for refill(s): Requested Prescriptions Pending Prescriptions Disp Refills omeprazole (PRILOSEC) 40 mg capsule [Pharmacy Med Name: omeprazole 40 mg capsule,delayed release] 30 capsule 5 Sig: take one capsule by mouth every day Date of last office visit in primary care: 01/26/2022 Date of next office visit in primary care: 06/19/2023 Last 2 Encounter Wt Readings: Date: Wt: 03/31/2022 117 kg (258 lb) 01/26/2022 119.3 kg (263 lb) Previous labs/tests for medication: Not applicable Thank you. Carmelita Osei LPN. documented in this encounter [facility] 03-31-2022 Miscellaneous Notes Faxed order, office notes, demographics and sleep study to: DME name: [facility] fax # [phone] DME Faxed info in patient's chart. documented in this encounter [facility] 03-31-2022 Instructions Debra Geiger APRN.[facility] - 03/31/2022 1:53 PM EDT Images from the original note were not included. Sleep Apnea What are the symptoms of sleep apnea? Often the first signs of JAYMIE are recognized not by the patient, but by the bed partner. Many of those affected have no sleep complaints. The most common signs and symptoms of JAYMIE include: Snoring. Daytime sleepiness or fatigue. Restlessness during sleep, frequent nighttime awakenings. Sudden awakenings with a sensation of gasping or choking. Dry mouth or sore throat upon awakening. Cognitive impairment, such as trouble concentrating, forgetfulness or irritability. Mood disturbances (depression or anxiety). Night sweats. Frequent nighttime urination (nocturia). Sexual dysfunction. Headaches. What is sleep apnea? Sleep apnea is a serious sleep disorder that happens when a person's breathing is interrupted during sleep. People with untreated sleep apnea stop breathing repeatedly during their sleep, sometimes hundreds of times during the night. If it s not treated, sleep apnea can cause a number of health problems, including hypertension (high blood pressure), stroke, cardiomyopathy (enlargement of the muscle tissue of the heart), heart failure, diabetes and heart attacks. Untreated sleep apnea can also be responsible for job impairment, work-related accidents and motor vehicle crashes, as well as underachievement in school in children and adolescents. There are two types of sleep apnea, obstructive and central: Obstructive sleep apnea is the more common of the two. Obstructive sleep apnea occurs as repetitive episodes of complete or partial upper airway blockage during sleep. During an apneic episode, the diaphragm and chest muscles work harder as the pressure increases to open the airway. Breathing usually resumes with a loud gasp or body jerk. These episodes can interfere with sound sleep, reduce the flow of oxygen to vital organs, and cause heart rhythm irregularities. In central sleep apnea, the airway is not blocked but the brain fails to signal the muscles to breathe due to instability in the respiratory control center. Central apnea is related to the function of the central nervous system. Who gets sleep apnea? Sleep apnea occurs in about 25% of men and nearly 10% of women. Sleep apnea can affect people of all ages, including babies and children and particularly people over the age of 50 and those who are overweight. Certain physical traits and clinical features are common in patients with obstructive sleep apnea. These include excessive weight, large neck and structural abnormalities reducing the diameter of the upper airway, such as nasal obstruction, a low-hanging soft palate, enlarged tonsils or a small jaw with an overbite. What causes sleep apnea? Obstructive sleep apnea is caused by a blockage of the airway, usually when the soft tissue in the rear of the throat collapses during sleep. Central sleep apnea is usually observed in patients with central nervous system dysfunction, such as following a stroke or in patients with neuromuscular diseases like amyotrophic lateral sclerosis (ALS, Gabriela Gehrig s disease). It is also common in patients with heart failure and other forms of heart, kidney or lung disease. People with central sleep apnea more often report recurrent awakenings or insomnia, although they may also experience a choking or gasping sensation upon awakening. What is PAP therapy? About Your PAP Therapy: Continuous Positive Airway Pressure (CPAP)/ Bi-level Therapy What is obstructive sleep apnea? The most common type of sleep apnea is obstructive sleep apnea (JAYMIE), a condition in which the upper airway collapses during sleep. This obstruction keeps air from getting into your lungs. Treatment The most common form of treatment today for JAYMIE is the use of a Positive Airways Pressure (PAP) device. The PAP device holds the airway open by using air pressure that is introduced through the nose with a nose mask or similar device. The air travels down the back of the throat, and into your upper airway. The amount of air pressure set on your pap machine is determined during the sleep study. There are two types of devices: CPAP (Continuous Positive Airways Pressure)- is the most widely used of the PAP devices. Bi-Level - uses one pressure during inspiration, and a lower pressure during expiration. There is a criterion that must be met before insurance will cover the Bi-Level. This usually means that the CPAP machine must be tried first with no success and these results documented before insurance will pay for a Bi-Level. The machine delivered to you is preset with the pressure as ordered by your physician. Do not attempt to adjust this pressure at any time. The pressure can only be changed by the sleep lab, or our staff members who are trained in doing this procedure. The machine will use a mask to deliver the air through your nose and/or mouth. These devices are available in various sizes and styles as illustrated below. Your [facility] sleep specialist or technologist will fit you with the most effective and comfortable mask possible. Please contact us if you ever feel you would need to be refitted or need a replacement mask. Is the PAP machine difficult to use? It will take some time for you to get used to the new equipment and it may take a while for you to begin to feel the benefits of PAP therapy. If you are having problems adjusting to your machine, please contact us for help. Tips for using your PAP Therapy Assembly: Place your PAP machine on a level surface near your bed. Keep the machine at least 12 inches away from anything that may block the vents. To prevent injury, do not place the machine higher than your head. Plug the machine into a properly grounded electrical outlet. It is better to avoid using an extension cord. If necessary, use a heavy-duty one. If you are NOT using a humidifier with your PAP equipment: Attach one end of your 6-foot tubing to the PAP unit outlet and the other end to your mask. (If your mask does not have a built-in exhalation port, a special exhalation valve should be used between the mask and the 6-foot tubing.) Attach the headgear to your mask. If you are using a humidifier: Fill the humidifier with DISTILLED water to the maximum fill line. Attach one end of your 6-foot tubing to the humidifier outlet and the other end to your mask. (If your mask does not have a built-in exhalation port, a special exhalation valve should be used between the mask and the 6-foot tubing.) If you have been prescribed oxygen with the PAP machine, you will be given instructions on how to attach your oxygen tubing. Always turn off the oxygen tank before turning off your PAP machine. Getting started: Wash your face and apply the mask and headgear as instructed. The mask should fit snugly to prevent air leaks, but not so tight as to cause skin irritation or discomfort. Turn the PAP power switch to the ON position. You should feel air blowing through the mask. Breathe normally and adjust the mask if you feel an air leak. If there are no leaks, activate the ramp feature on your PAP machine. The ramp allows a lower pressure to be delivered for a designated time period (usually 5 to 45 minutes) to allow you to relax and fall asleep easier. The pressure will then gradually increase to the prescribed pressure that controls your apnea. Remember to turn OFF your PAP unit when it is not in use. Equipment Cleaning Keeping your equipment clean is very important to assuring your success with positive pressure therapy. Following the guidelines below can help you avoid preventable respiratory infections, as well as ensure the proper operation and the usable life of the equipment. Daily: Wash mask or nasal pillows with mild dish soap. Rinse well and dry. Wash humidifier water chamber with mild dish soap. Rinse well and refill with water recommended by the oral communication instructor. Weekly: Wash hose with mild dish soap. Rinse well and hang to air dry or connect the hose to your CPAP/BIPAP and allow air to blow through the hose until dry. Soak the humidifier water chamber in 1 part white vinegar and 3 parts water for 30 minutes. Rinse well. Avoid: Alcohol, baby wipes, antibacterial soaps, glycerin, oil-based soap, peroxide, bleach, aromatic soaps and lotions. Troubleshooting If the machine fails to turn on: Make sure that the PAP machine is plugged into a grounded outlet Make sure that the ON/OFF switch is in the ON position. Make sure that the wall outlet has power. If there is no pressure coming from your machine: Make sure that the inlet filter is clean and unblocked. Make sure that the cooling fan is unblocked and that air is flowing freely. Make sure that all tubing is securely connected. Important Safety Information Use this machine as prescribed by your doctor. Untreated JAYMIE can lead to hypertension, congestive heart failure, stroke, Type 2 diabetes, obesity, chronic fatigue, depression, and glaucoma. DO NOT let anyone else use your machine for any reason. If you are using supplemental oxygen in line with your PAP device, be sure to observe all oxygen safety precautions. There should be no smoking at any time. Keep the equipment away from an open flame or heat source. Do not use the PAP system around water other than what is in the humidifier. This could cause an electrical shock. If a humidifier is used, keep the height of the humidifier at a level which is slightly lower than the level of your head. REASON: If your humidifier gets knocked over while you are sleeping, you want the water to move away from your head and not into your nose. Frequently Asked Questions 1. What are the benefits of PAP therapy? First, it will decrease your chances of getting any of the conditions listed in bold above. PAP therapy will increase your energy levels; improve your mental alertness, your mood, your quality of sleep, and your quality of life. 2. Is the PAP machine difficult to use? It will take some time for you to get used to the new equipment and it may take a while for you to begin to feel the benefits of PAP therapy. If you are having problems adjusting to your machine, please contact us for help. 3. If I lose weight, will I cure my JAYMIE? That depends. Some people have shown decreased symptoms from JAYMIE after losing weight and were removed from their PAP machine; others have not. However, if you are overweight, losing weight will always improve your health and decrease your risks of developing other health issues. 4. How long will I need to use this machine? PAP therapy is just that--therapy. As long as you have JAYMIE, you need to do something to improve your quality of sleep. Today, after many years of experimenting with surgeries, oral appliances, special bed pillows, etc, positive airway pressure is the gold standard for relieving and improving symptoms of JAYMIE. 5. Is this covered by my insurance? At [facility], upon receiving your PAP order, we contact your insurance company to verify that they will cover your machine. Based on your plan, you may have a co-payment every month or not. The insurance company also informs us at to how many months they will pay before the equipment is converted to a purchase. About Replacement Supplies The following is an outline of the typical replacement guidelines, however, we strongly advise you to contact your insurance company for your specific policy guidelines. We will gladly assist you in the process. Nasal mask - 1 every 3 months Full face mask - 1 every 3 months Nasal pillows - 2 pair every month Headgear - 1 every 6 months Chinstrap - 1 every 6 months Tubing - 1 every 3 months Filters - 2 every month depending on type Humidifier chamber - 1 every 6 months Please keep in mind that you may be responsible for any deductible, co-payments or out of pocket expense associated with your new supplies. documented in this encounter [facility] 03-31-2022 History of Presen t illness Narrative Images from the original note were not included. [facility] Visit performed virtually, with the patient's permission. New Patient Evaluation PATIENT NAME: Faisal Alexander DATE OF SERVICE: March 27, 2022 CONSULTING PROVIDER: SELF REASON FOR VISIT: Dx: Severe obstructive sleep apnea [G47.33 (ICD-10-CM)] HPI: Faisal Alexander is a 36 year old male. Sleep-related history: It started with my complaining about me snoring and my breathing was kind of weird. I don't wake up when our baby is crying. Fatigue during the day. Snoring going on for several years. Fatigue for the past year. will put her hand on his back because he stops breathing. Reports excessive drooling at night. SLEEP-WAKE SCHEDULE He is a self-described night person. Bedtime: 9302-8416. He does not have a hard time falling asleep. Wake time: 0430, with an alarm. After falling asleep: he does not usually wake up during the night. On weekends, he tends to stay up until midnight and sleeps until [id number]. Average total sleep time (in a 24 hour period): 7-8 hours. SLEEP-RELATED DETAILS Preferred sleep position: side or back. Waking up more on my stomach lately. Breathing disturbances and other behaviors during sleep: snoring and stopping breathing during sleep. Bruxism: No GERD or aspiration: Occasionally but nothing terrible. Waking up with heart pounding or racing: No Anxiety or rumination: No He does not report having an urge to move the legs in the evening (when resting) that is accompanied or caused by uncomfortable and/or unpleasant sensations in the legs. He has not been told that he has leg kicking during sleep. He denies any history of parasomnias. Excessive daytime sleepiness / fatigue is a problem. Excessive Daytime sleepiness/fatigue has been a problem for 1 years. There is no history of a viral illness or significant head injury prior to the start of daytime sleepiness. He does not report sleep paralysis or sleep-related hallucinations or cataplexy. 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 Works [id number]. He does have a little bit difficulty with memory. Concentration intact. He denies falling asleep or dozing off when driving. He does take naps. Frequency: 1/weekend, Duration: 1 + hours. Naps are not refreshing. He does drink 4 caffeinated beverages per day. There has not been a recent change in weight. Patient Questionnaires Sleep Scores PROMIS CAT Sleep Disturbance 02/06/2020 PROMIS Sleep Disturbance T-Score 44 (within normal limits) PHQ-9 01/09/2018 02/06/2020 Score 0 0 PROMIS Global Health - (T-Scores - the mean of general population = 50. Five points is a clinically meaningful difference.) 11/01/2020 10/18/2021 01/25/2022 Physical T-Score 44.9 54.1 50.8 Mental T-Score 38.8 53.3 48.3 PAST TREATMENTS: None PRIOR SLEEP STUDIES: Home Sleep Test (HST) 02/10/2022 confirms a diagnosis of severe positional (supine related) obstructive sleep apnea. The off-supine related WADNER/AHI was normal. JAYMIE (Total AHI 13.3, Off-Supine AHI 2.9, Supine AHI 37.2) that was associated with a minimum oxygen saturation of 87%. OTHER RELEVANT LABS AND STUDIES: Hemoglobin Date Value Ref Range Status 03/20/2017 15.5 13.0 - 17.0 g/dL Final No results found for: FE, TIBC PAST MEDICAL HISTORY Diagnosis Date Abnormal MRI, lumbar spine 07/23/2017 Acute midline low back pain with left-sided sciatica 07/23/2017 Seeing spine Med GERD without esophagitis 11/12/2019 History of Helicobacter pylori infection 05/27/2016 2017 Lumbosacral neuritis 01/09/2018 Seeing Spine Med Recurrent cold sores 12/11/2013 Severe obstructive sleep apnea 02/21/2022 PAST SURGICAL HISTORY Procedure Laterality Date ESOPHAGOGASTRODUODENOSCOPY TRANSORAL DIAGNOSTIC 09/21/2016 EGD ESOPHAGOGASTRODUODENOSCOPY TRANSORAL DIAGNOSTIC 10/29/2018 EGD VASECTOMY 11/11/2021 ACTIVE PROBLEM LIST Recurrent Cold Sores History of Helicobacter Pylori Infection Abnormal Mri, Lumbar Spine Acute Midline Low Back Pain With Left-Sided Sciatica Lumbosacral Neuritis Gerd Without Esophagitis Encounter for Screening for Diabetes Mellitus Current Use of Proton Pump Inhibitor Obesity, Class I, Bmi 30-34.9 Severe Obstructive Sleep Apnea Allergies As of Date: 03/31/2022 Allergen Noted Reaction PENICILLINS 03/21/2017 Other: See Comments Fully Assessed 03/31/2022 CURRENT MEDICATIONS: omeprazole (PRILOSEC) 40 mg capsule Take 1 capsule by mouth once daily. multivitamin tablet Take 1 tablet by mouth once daily. Prior Hypersomnia/Narcolepsy Medications (20 years) Some values may be hidden. Unless noted otherwise, only the newest values recorded on each date are displayed. Hypersomnia/Narcolepsy Medications No data to display. Prior RLS Medications (last 20 years) Some values may be hidden. Unless noted otherwise, only the newest values recorded on each date are displayed. RLS Medications No data to display. Prior Insomnia Medications (last 20 years) Some values may be hidden. Unless noted otherwise, only the newest values recorded on each date are displayed. Insomnia Medications sertraline (ZOLOFT) 50 mg tablet Dose: 1/2 a tablet by mouth once a day for 10 days then go to one tablet daily Starting date: 11/03/2020 Ending date: 01/26/2022 (Discontinued) triazolam (HALCION) 0.25 mg tablet Dose: Take 30 minutes prior to procedure. Starting date: 10/18/2021 Ending date: 01/18/2022 Review of Systems Constitutional: Positive for fatigue. Respiratory: Negative. Cardiovascular: Negative. Genitourinary: Negative. Neurological: Positive for headaches. SOCIAL HISTORY: Social History Tobacco Use Smoking status: Never Smokeless tobacco: Former Types: Chew Vaping Use Vaping Use: Never used Substance Use Topics Alcohol use: Yes Alcohol/week: 8.3 standard drinks Types: 2 Shots of liquor, 2 Cans of Beer (12oz) per week Comment: occassionally Drug use: No FAMILY HISTORY: FAMILY HISTORY Problem Relation Age of Onset Multiple Sclerosis Mother None Father None Sister Ciliac disease None Sister None Brother Cancer Maternal Grandmother , Breast and esophageal Cancer Maternal Grandfather stomach None Paternal Grandmother Coronary Artery Disease Paternal Grandfather early 50's There is no family history of sleep disorders. PHYSICAL EXAMINATION: Deferred due to virtual visit via Zoom. Per patient, height 6'2, weight 258 pounds. PHYSICAL EXAM: Constitutional: Appearance: Well groomed. Well nourished male. Very pleasant. Skin: General: Skin is warm, dry, intact. Neurological: General: No focal deficit present. Mental Status: A&OX3 (person, place, and time). Speech: Clear, projects well. Memory: Intact, responses appropriate. Psychiatric: Mood and Affect: Mood normal. Behavior: Behavior normal IMPRESSION/PLAN: Diagnosis: G47.33 Severe obstructive sleep apnea (primary encounter diagnosis) E66.9 Obesity, Class I, BMI 30-34.9 R06.83 Snoring R06.81 Witnessed episode of apnea G47.8 Unrefreshed by sleep G47.19 Excessive daytime sleepiness K11.7 Drooling Sleep Studies (Reviewed Prior and Current): Home Sleep Test (HST) 02/10/2022 confirms a diagnosis of severe positional (supine related) obstructive sleep apnea. The off-supine related WANDER/AHI was normal. JAYMIE (Total AHI 13.3, Off-Supine AHI 2.9, Supine AHI 37.2) that was associated with a minimum oxygen saturation of 87%. Overview: Mr. Faisal Alexander is a 36 year old male with a PMH of GERD, Obesity who presents via virtual visit for new patient evaluation for Dx: Severe obstructive sleep apnea [G47.33 (ICD-10-CM)]. It started with my complaining about me snoring and my breathing was kind of weird. I don't wake up when our baby is crying. Fatigue during the day. Snoring going on for several years. Fatigue for the past year. will put her hand on his back because he stops breathing. Reports excessive drooling at night. Discussed Home Sleep Test (HST) 02/10/2022 results which confirms a diagnosis of severe positional (supine related) obstructive sleep apnea. The off-supine related WANDER/AHI was normal. JAYMIE (Total AHI 13.3, Off-Supine AHI 2.9, Supine AHI 37.2) that was associated with a minimum oxygen saturation of 87%. The results of this study may represent an underestimation of the degree of obstructive sleep apnea, especially hypopneas, because of the known limitations of HSAT, such as inability to record arousals because EEG is not recorded. Discussed the diagnosis and physiology of obstructive sleep apnea. Discussed the importance of treating JAYMIE, with particular attention given to the comorbidities associated with untreated JAYMIE, which include but are not limited to hypertension, heart disease, stroke, obesity and daytime sleepiness that can affect normal daytime functioning. Treatment options for sleep apnea, including positive airway pressure (PAP) therapy, surgery, oral appliance and conservative measures (avoidance of alcohol, sedative medications and sleeping in the back position, management of nasal obstruction and weight loss), should be individualized. PAP therapy may be considered in patients with documented symptoms of daytime sleepiness, impaired cognition, mood disorder, insomnia, or documented hypertension, ischemic heart disease, or history of stroke. Plan: - Start AutoCPAP 6-15 cmH2O with formal mask fitting and patient mask preference. New to PAP therapy. - I will have a prescription sent to a [employer] company - [email or web address]. who will be calling you in the next 1-2 weeks. Please call them directly or us if you do not hear from them in this time frame. DME Contact Information: [employer] [place] - Please consider side sleeping or sleeping upright in a recliner until starting AutoPAP therapy. - You should be eligible for new supplies approximately every 3-6 months, depending on your insurance coverage. - If your mask doesn't fit well, call the [employer] company before 30 days are up to get a new mask without an additional charge. - We encourage a healthy lifestyle with adequate sleep (7-8 hours), diet and exercise. - Avoid driving when drowsy. Would recommend that if you are dozing off while driving, that you do not drive until your sleep apnea and sleepiness are appropriately treated. - Avoid the use of alcohol, sedatives, and narcotic pain medication at bedtime Insurance requirements: - Your insurance requires a [id number] follow up visit within a 31-90 day period after starting PAP machine (aim for ~ 60 days). At that visit, we will get a data download to ensure tolerance, compliance, and efficacy. - Your insurance requires compliance with PAP, which is at least 4 hours per night for 70% of the time. This must be done over a 30 day period and must occur within the initial 31-90 day period after starting CPAP. - Your insurance also requires at least yearly follow ups to continue to pay for CPAP supplies. Follow up: - Follow up in 60 days after your PAP machine arrives. Remember to contact office as soon as you get your machine to set up 60 days follow up appointment or virtual visit to ensure the best time for you. Please bring machine with you if following up in office. - If you have questions or concerns prior to your next office visit, feel free to send me a [employer] message or contact [place] office at [phone] (after hours, leave message at [phone]). I spent a total of 55 minutes as this was a new patient to me on the date of the service which included preparing to see the patient, [id number]-[id number] patient care, completing clinical documentation, counseling and educating the patient/family/caregiver and ordering medications, tests, or procedures. Debra Geiger APRN.ZINA documented in this encounter [facility] 02-22-2022 Miscellaneous Notes Called the patient and scheduled an appointment. I've routed message to Neuro pool and FM PSR pool to contact pt to schedule. Simin Boyce Ma Consult to sleep medicine placed. documented in this encounter [facility] 02-11-2022 History of Presen t illness Narrative Sleep Study Check-In Documentation Date: February 11, 2022 Name: Faisal Alexander Comments: HST was returned in working order with all sleep questionnaires [facility] [place] [employer]# [id number] Mail out date: 02/08/22 [employer] Shipping #: [id number] [employer] Return #: [id number] January 28, 2022 Standing PSG Orders signed in the last 90 days None Future PSG Orders signed in the last 90 days Ordered Auth. provider HOME SLEEP APNEA TEST (HSAT) [[id number]] 01/26/22 Fifi Roland APRN.[facility] NURSE [facility]oc. diagnoses: Daytime sleepiness [R40.0] Q: Indications: A: Obstructive sleep apnea Q: STOP-BANG conditions - Select All That Apply: A: GENDER = male A2: BMI > 35 kg/m2 Q: Current use of supplemental oxygen during sleep period?: A: No All Prior Sleep Studies (past 365 days) Some values may be hidden. Unless noted otherwise, only the newest values recorded on each date are displayed. Sleep Studies HOME SLEEP APNEA TEST (HSAT) Future Expected: Expires: 01/26/23 BMI Readings from Last 2 Encounters: 01/26/22 : 35.05 kg/m 12/28/21 : 34.02 kg/m PAST MEDICAL HISTORY Diagnosis Date Abnormal MRI, lumbar spine 07/23/2017 Acute midline low back pain with left-sided sciatica 07/23/2017 Seeing spine Med GERD without esophagitis 11/12/2019 History of Helicobacter pylori infection 05/27/2016 2017 Lumbosacral neuritis 01/09/2018 Seeing Spine Med Recurrent cold sores 12/11/2013 The medical record was reviewed to determine if the proposed sleep study conforms to the AASM Practice Parameters for the Indications for Polysomnography and Related Procedures, or if the sleep study is indicated for other reasons. Indications for study: JAYMIE suspected without comorbid medical or sleep disorders Sleep study to be performed: Home Sleep Apnea Test (HSAT) Special instructions: None-follow laboratory protocol Jef Gonzalez Poly-T - Sleep Medicine Staff Note: I have read the above protocol, edited as needed, and agree to the plan. Castro Dominguez III, PhD 12:20 PM, 01/28/2022 January 28, 2022 An order has been received for Home Sleep Apnea Test (HSAT) from torsten Martinez. [facility] Staff. Visit prep complete. Comments :No The sleep study is scheduled for 02/09/2022. Insurance: Payor: ANTHEM / Plan: BLUE CARD PPO OOS / Product Type: PPO / Payor/Plan Subscr Sex Relation Sub. Ins. ID Effective Group Num 1. [employer]M - BLUE* FAISAL ALEXANDER P 1985 Male Self [id number] [birth year] [id number] [address] Valentin Herman documented in this encounter [facility] 01-26-2022 Instructions Fifi Roland APRN.CNP - 01/26/2022 10:24 AM EDT 1.) Get labs completed today. 2.) Call for at home sleep study. 3.) Continue to take all medication as prescribed. 4.) You were given Tdap booster. 5.) Continue to eat a well balanced diet and get some form of exercise. 6.) Follow up in 1 year or sooner as needed. Health Promotion: - Eat healthy go to [email or web address] to get started - Have a yearly physical - Get at least 30 minutes of physical activity daily - Get at least 7 to 8 hours of sleep each night - Reach and maintain a healthy weight - Get help to quit or don't start smoking - Limit alcohol use to one drink or less - Do not use illegal drugs or misuse prescription drugs - Wear a helmet when riding a bike and wear protective gear for sports - Wear a seatbelt in cars and not text and drive - Wear sunscreen documented in this encounter [facility] 01-26-2022 History of Presen t illness Narrative This is a 36 year old male who presents today with: Patient presents with: Physical: snoring and breathing issues while sleeping HISTORY OF PRESENT ILLNESS: Faisal Alexander is a 36 year old male. Patient presents with: Physical: snoring and breathing issues while sleeping Patient of Dr. Sánchez here in the office for wellness exam. Diet: Eating a well balanced diet. Exercise: Staying active with children. Vision: Had exam, wears glasses. Dental: Had exam, no difficulties. Sleep: 6.5 hours per night. Mood: Denies any increased sadness, anxiety, or SI/HI. GERD: Taking omeprazole 40 mg daily as needed. Works well for symptoms. Herpes ( Cold Sores): Needs a refill on valtrex, which has been helpful. Snoring: Day time sleepiness and feels exhausted. refers that he snores and breaths differently. Hard to wake up at times. No diffculty swallowing or heat/cold intolerances. Vaccines: Due for Tdap. PAST MEDICAL HISTORY: PAST MEDICAL HISTORY Diagnosis Date Abnormal MRI, lumbar spine 07/23/2017 Acute midline low back pain with left-sided sciatica 07/23/2017 Seeing spine Med GERD without esophagitis 11/12/2019 History of Helicobacter pylori infection 05/27/20162016 Lumbosacral neuritis 01/09/2018 Seeing Spine Med Recurrent cold sores 12/11/2013 PAST SURGICAL HISTORY Procedure Laterality Date ESOPHAGOGASTRODUODENOSCOPY TRANSORAL DIAGNOSTIC 09/21/2016 EGD ESOPHAGOGASTRODUODENOSCOPY TRANSORAL DIAGNOSTIC 10/29/2018 EGD VASECTOMY 11/11/2021 ALLERGIES Penicillins MEDICATIONS Current Outpatient Medications Medication Sig doxycycline monohydrate 100 mg tablet Take 1 tablet by mouth twice daily. azithromycin (ZITHROMAX) 250 mg tablet Take by mouth as directed. TAKE 2 TABLETS BY MOUTH TODAY, THEN TAKE 1 TABLET DAILY FOR 4 DAYS albuterol HFA (PROVENTIL HFA, VENTOLIN HFA) 90 mcg/actuation inhaler inhale 2 puffs by mouth and INTO THE LUNGS four times a day if ne... (REFER TO PRESCRIPTION NOTES). Benzonatate 200 mg capsule take 1 capsule by mouth three times a day if needed for cough FLOVENT DISKUS 250 mcg/actuation inhaler inhale 2 puff by mouth and INTO THE LUNGS every 12 hours sertraline (ZOLOFT) 50 mg tablet 1/2 a tablet by mouth once a day for 10 days then go to one tablet daily Omeprazole 40 mg capsule Take 1 capsule by mouth once daily. (Patient taking differently: Take 40 mg by mouth once daily as needed. ) valACYclovir (VALTREX) 500 mg tablet Take 1 tablet by mouth once daily. (Patient taking differently: Take 500 mg by mouth once daily as needed. ) gabapentin (NEURONTIN) 300 mg capsule Take 1 capsule by mouth twice daily for 30 days. (Patient taking differently: Take 300 mg by mouth twice daily. Patient is not taking everyday; As needed.) multivitamin tablet Take 1 tablet by mouth once daily. No current facility-administered medications for this visit. FAMILY HISTORY Problem Relation Age of Onset Multiple Sclerosis Mother None Father None Sister Ciliac disease None Sister None Brother Cancer Maternal Grandmother , Breast and esophageal Cancer Maternal Grandfather stomach None Paternal Grandmother Coronary Artery Disease Paternal Grandfather early 50's Social History Tobacco Use Smoking status: Never Smoker Smokeless tobacco: Former User Types: Chew Vaping Use Vaping Use: Never used Substance Use Topics Alcohol use: Yes Alcohol/week: 8.3 standard drinks Types: 2 Shots of liquor, 2 Cans of Beer (12oz) per week Comment: occassionally Drug use: No REVIEW OF SYSTEMS GENERAL: + Day time sleepiness HEENT: Negative for frequent or significant headaches, No changes in hearing or vision. NECK: Negative for lumps, goiter, pain and significant neck swelling RESPIRATORY: Negative for cough, hemoptysis, wheezing, dyspnea or shortness of breath CARDIOVASCULAR: Negative for chest pain, leg swelling, orthopnea, or palpitations GI: No nausea, vomiting, or diarrhea/constipation. No hematochezia/melena. No heartburn or reflux symptoms. : No history of dysuria, frequency or incontinence MUSCULOSKELETAL: Negative for joint pain or swelling. SKIN: Negative for lesions, rash, and itching ENDOCRINE: Negative for cold or heat intolerance, polyuria, polydipsia and goiter NEURO: No history of headaches, syncope, paralysis, seizures or tremors MOOD: Negative for depression, anxiety, or suicidal ideation. EXAM: BP 120/88 Pulse 97 Resp 16 Ht 184.5 cm (6' 0.64) Wt 119.3 kg (263 lb) SpO2 98% BMI 35.05 kg/m PHYSICAL EXAM: General Appearance: Well appearing, alert, in no acute distress, well-hydrated, well nourished. Skin: Skin color, texture, turgor normal, no suspicious rashes or lesions. Head: Normocephalic, no masses, lesions, tenderness or abnormalities. Eyes: Anicteric sclera. Pupils are equally round and reactive to light. Extraocular movements are intact. Ears: External ears normal, canals clear. TM's pearly perez. Neck: Supple, no adenopathy; thyroid symmetric, normal size, no bruits. Lungs: Lungs clear to auscultation. No wheezing, rhonchi, rales. Heart: RRR without murmur, gallop, or rubs. No ectopy. Abdomen: Normal abdominal exam, Abdomen soft, non-tender. Bowel sounds normal. No masses, organomegaly, Negative CVA tenderness. Extremities: No deformities, edema, skin discoloration, clubbing or cyanosis. Good capillary refill. Musculoskeletal: No joint swelling, deformity, or tenderness. Peripheral Pulses: Normal, Capillary refill <2secs, strong peripheral pulses, Pulses palpable. Neurologic: Gait normal. Reflexes normal and symmetric. Sensation grossly intact.. Mood: Pleasant, good eye contact, engaged. ASSESSMENT/PLAN: 1. Wellness examination - ICD9: V70.0, ICD10: Z00.00 (primary diagnosis) - Counseled on healthy diet and regular exercise - Discussed need for and benefit of weight loss. BMI 35.05 kg/(m^2) - Depression screening tool completed and reviewed with patient. Based on score and interview, patient is not at risk for depression and recommended no further intervention at this time. - Patient was counseled [id number] by myself (the billing provider) for the following immunizations and vaccine components, including side effects: DTaP. Patient consents for immunization and understands risks and benefits. A VIS sheet on each immunization was given to the patient. - Follow up for annual exam in one year - COMP METABOLIC PANEL 2. Daytime sleepiness - ICD9: 780.54, ICD10: R40.0 - Get the following labs and at home sleep study to further evaluate acute causes of his symptoms. - TSH BLD - VITAMIN D 25 HYDROXY - VITAMIN B12 BLOOD - HOME SLEEP APNEA TEST (HSAT) 3. Recurrent cold sores - ICD9: 054.9, ICD10: B00.1 - Refill provided. - VALACYCLOVIR 500 MG TABLET 4. GERD without esophagitis - ICD9: 530.81, ICD10: K21.9 - Refill provided. - OMEPRAZOLE 40 MG CAPSULE,DELAYED RELEASE 5. Screening for diabetes mellitus - ICD9: V77.1, ICD10: Z13.1 - HGB A1C 6. Screening cholesterol level - ICD9: V77.91, ICD10: Z13.220 - LIPID PANEL, NONFASTING 7. Encounter for immunization - ICD9: V03.89, ICD10: Z23 - TDAP VACCINE AGE 7+ IM Follow-up in 1 year or sooner as needed. Discussed treatment plan and patient voices understanding. Patient's questions answered appropriately. Medications and potential side effects were discussed and patient voices understanding. Fifi Roland APRN.ZINA This note was partially generated using [employer] voice recognition system. Note was reviewed for accuracy. There may be minor misspellings or grammar miscues with [employer] voice recognition. documented in this encounter [facility] 01-03-2022 History of Presen t illness Narrative Radiology Service Progress Note PATIENT NAME: Faisal Alexander DATE OF SERVICE: January 03, 2022 TIME: 2:27 PM PATIENT IDENTITY VERIFICATION COMPLETED USING TWO (2) IDENTIFIERS: Name and Date of confirmed by patient verbally. FALL SCREENING: Has the patient had 2 falls in the last year or 1 fall with injury or currently using an Ambulatory Assistive Device (Walker, Cane, Wheelchair, Crutches, etc.)? No PATIENT GENDER DATA: Male PATIENT RELEVANT IMPLANT DATA REVIEWED: Not Applicable RADIOLOGY DEPARTMENT: Ultrasound PERIPHERAL IV DATA: Not applicable SIGNED BY: Janay Beard RDMS T January 03, 2022 2:27 PM documented in this encounter [facility] 12-28-2021 History of Presen t illness Narrative Images from the original note were not included. [facility] Some elements copied from my previous note, which have been updated where appropriate, and all reflect current medical decision making from date of this visit. PATIENT INFO: Faisal Alexander 36 year old ( ) REFERRING PROVIDER: Kaveh Sánchez PCP: Kaveh Sánchez MD December 28, 2021 HPI: Faisal Alexander 36 year old male is here today for follow up for concerns of cord like firmness near the right testicle after he had a vasectomy with Dr. Vines We discussed the post vasectomy findings and will need a scrotum US to take a look at structure and good blood flow to testicles. He has a varicocele on exam and Discuss this. Once Us is completed will let surgeon if any concerns, recommended supportive underwear d/t the pain comes when trying jog or run it start to hurt But no obvious scrotal swelling or pain on exam LUTS: None Other symptoms: ED - no LABS: Hematocrit (%) Date Value 03/20/2017 47.9 No results found for: PSA No results found for: TESTOST MEDICATIONS: azithromycin (ZITHROMAX) 250 mg tablet Take by mouth as directed. TAKE 2 TABLETS BY MOUTH TODAY, THEN TAKE 1 TABLET DAILY FOR 4 DAYS albuterol HFA (PROVENTIL HFA, VENTOLIN HFA) 90 mcg/actuation inhaler inhale 2 puffs by mouth and INTO THE LUNGS four times a day if ne... (REFER TO PRESCRIPTION NOTES). Benzonatate 200 mg capsule take 1 capsule by mouth three times a day if needed for cough FLOVENT DISKUS 250 mcg/actuation inhaler inhale 2 puff by mouth and INTO THE LUNGS every 12 hours Omeprazole 40 mg capsule Take 1 capsule by mouth once daily. valACYclovir (VALTREX) 500 mg tablet Take 1 tablet by mouth once daily. multivitamin tablet Take 1 tablet by mouth once daily. triazolam (HALCION) 0.25 mg tablet Take 30 minutes prior to procedure. sertraline (ZOLOFT) 50 mg tablet 1/2 a tablet by mouth once a day for 10 days then go to one tablet daily gabapentin (NEURONTIN) 300 mg capsule Take 1 capsule by mouth twice daily for 30 days. PAST MEDICAL HISTORY: PAST MEDICAL HISTORY Diagnosis Date Abnormal MRI, lumbar spine 07/23/2017 Acute midline low back pain with left-sided sciatica 07/23/2017 Seeing spine Med GERD without esophagitis 11/12/2019 History of Helicobacter pylori infection 05/27/2016 2017 Lumbosacral neuritis 01/09/2018 Seeing Spine Med Recurrent cold sores 12/11/2013 PAST SURGICAL HISTORY: PAST SURGICAL HISTORY Procedure Laterality Date ESOPHAGOGASTRODUODENOSCOPY TRANSORAL DIAGNOSTIC 09/21/2016 EGD ESOPHAGOGASTRODUODENOSCOPY TRANSORAL DIAGNOSTIC 10/29/2018 EGD VASECTOMY 11/11/2021 FAMILY HISTORY: FAMILY HISTORY Problem Relation Age of Onset Multiple Sclerosis Mother None Father None Sister Ciliac disease None Sister None Brother Cancer Maternal Grandmother , Breast and esophageal Cancer Maternal Grandfather stomach None Paternal Grandmother Coronary Artery Disease Paternal Grandfather early 50's SOCIAL HISTORY: Social Connections: Not on file REVIEW OF SYSTEMS: GENERAL: No fever, chills, weight loss, or fatigue. All other systems reviewed and are negative PHYSICAL EXAMINATION: Blood pressure 138/90, pulse 112, temperature 36.3 C (97.4 F), temperature source Temporal, resp. rate 14, height 188 cm (6' 2), weight 120.2 kg (265 lb), SpO2 97 %. GENERAL: WNL nutrition, no deformities, healthy appearing GENITOURINARY: MALE EXAM: No scrotal lesions, cysts, rashes. Varicoceles: Left Epididymis & testes: normal size, position, without masses Urethra & meatus: normal size & position w/o lesion or discharge Penis: circumcised, w/o plaques, lesions, masses, or deformities. PROBLEM LIST REVIEW: Yes LABS: Results for orders placed or performed in visit on 12/28/21 UA DIP, URINE (POC) Result Value Ref Range GLUCOSE UA (POCT) Negative Negative mg/dL BILIRUBIN UA (POCT) Negative Negative KETONE UA (POCT) Negative Negative mg/dL SPECIFIC GRAVITY UA (POCT) 1.020 1.005 - 1.030 HEMOGLOBIN/BLOOD UA (POCT) Negative Negative PH UA (POCT) 6.0 4.5 - 8.0 PROTEIN UA (POCT) Negative Negative mg/dL UROBILINOGEN UA (POCT) 0.2 Normal E.U./dL NITRITE UA (POCT) Negative Negative LEUKOCYTES UA (POCT) Negative Negative COLOR UA (POCT) Yellow CLARITY UA (POCT) Clear PROCEDURES: IMAGING: Scrotum US - Pending IMPRESSION/PLAN: 1. Pain in right testicle - UA DIP, URINE (POC) - POST VOID RESIDUAL - US SCROTUM AND CONTENTS; Future 2. S/P vasectomy YAW Dill MT, PA-C CC Post Void Residual HPI: Faisal Alexander is a 36 year old male. The patient is here now for an appointment with YAW Dill MT, PA-COV. Procedure: Explained procedure to patient and verbalizes understanding. Performed a PVR. Patient urinated and instructed to empty bladder as much as possible just prior to having PVR done using bladder ultrasound scanner. Results of scan: 0 mL The patient tolerated the procedure well. Plan: Appointment with James. documented in this encounter [facility] 11-22-2021 Note HNO ID: [id number] Author: Harika Hinojosa PA-C Service: ? Author Type: Physician [employer] Type: Progress Notes Filed: 11/22/2021 12:36 PM Note Text: ESTABLISHED PATIENT OFFICE VISIT HISTORY OF PRESENT ILLNESS: Faisal Alexander is a 36 year old male, Ht 188 cm (6' 2) BMI 33.51 kg/m2 with a PMH significant for s/p vasectomy, right sided swelling and tenderness over incision. No fever, chills or voiding issues. . LAB: Creatinine Date Value Ref Range Status 03/20/2017 0.95 0.73 - 1.22 mg/dL Final No results found for: PSA Glucose, Urine (mg/dL) Date Value 03/20/2017 neg Bilirubin, Urine (no units) Date Value 03/20/2017 small Ketones, Urine (no units) Date Value 03/20/2017 neg Specific [place], Ur (no units) Date Value 03/20/2017 1.015 Hemoglobin/Blood,Ur (no units) Date Value 03/20/2017 trace pH, Urine (no units) Date Value 03/20/2017 6.0 Protein, Urine (mg/dL) Date Value 03/20/2017 30 Urobilinogen, Urine (EU) Date Value 03/20/2017 normal Nitrites (no units) Date Value 03/20/2017 neg Leukocytes (no units) Date Value 03/20/2017 trace Color/Appearance (comment:) Date Value 03/20/2017 leobardo/clear MEDICATIONS: Omeprazole 40 mg capsule Take 1 capsule by mouth once daily. valACYclovir (VALTREX) 500 mg tablet Take 1 tablet by mouth once daily. multivitamin tablet Take 1 tablet by mouth once daily. sulfamethoxazole-trimethoprim (BACTRIM DS) 800-160 mg per tablet Take 1 tablet by mouth twice daily for 7 days. triazolam (HALCION) 0.25 mg tablet Take 30 minutes prior to procedure. sertraline (ZOLOFT) 50 mg tablet 1/2 a tablet by mouth once a day for 10 days then go to one tablet daily gabapentin (NEURONTIN) 300 mg capsule Take 1 capsule by mouth twice daily for 30 days. Review of Systems HISTORIES PAST MEDICAL HISTORY Diagnosis Date - Abnormal MRI, lumbar spine 07/23/2017 - Acute midline low back pain with left-sided sciatica 07/23/2017 Seeing spine Med - GERD without esophagitis 11/12/2019 - History of Helicobacter pylori infection 05/27/20162016 - Lumbosacral neuritis 01/09/2018 Seeing Spine Med - Recurrent cold sores 12/11/2013 FAMILY HISTORY Problem Relation Age of Onset - Multiple Sclerosis Mother - None Father - None Sister Ciliac disease - None Sister - None Brother - Cancer Maternal Grandmother , Breast and esophageal - Cancer Maternal Grandfather stomach - None Paternal Grandmother - Coronary Artery Disease Paternal Grandfather early 50's Social History Tobacco Use - Smoking status: Never Smoker - Smokeless tobacco: Former User Types: Chew Substance Use Topics - Alcohol use: Yes Alcohol/week: 8.3 standard drinks Types: 2 Shots of liquor, 2 Cans of Beer (12oz) per week Comment: occassionally - Drug use: No PHYSICAL EXAMINATION GENERAL APPEARANCE: Well appearing, alert, in no acute distress, well-hydrated, well nourished. Genitourinary: MALE EXAM: left vas incision is closed and healing well, right vas incision with slight separation, 2cm x 2cm inflamed area, under incision is present, tender to touch, no erythema ASSESSMENT/PLAN: 1. S/P vasectomy - ICD9: V26.52, ICD10: Z98.52 Ice and bactrim Harika Hinojosa PA-C [facility] 11-22-2021 History of Presen t illness Narrative ESTABLISHED PATIENT OFFICE VISIT HISTORY OF PRESENT ILLNESS: Faisal Alexander is a 36 year old male, Ht 188 cm (6' 2) BMI 33.51 kg/m2 with a PMH significant for s/p vasectomy, right sided swelling and tenderness over incision. No fever, chills or voiding issues. . LAB: Creatinine Date Value Ref Range Status 03/20/2017 0.95 0.73 - 1.22 mg/dL Final No results found for: PSA Glucose, Urine (mg/dL) Date Value 03/20/2017 neg Bilirubin, Urine (no units) Date Value 03/20/2017 small Ketones, Urine (no units) Date Value 03/20/2017 neg Specific [place], Ur (no units) Date Value 03/20/2017 1.015 Hemoglobin/Blood,Ur (no units) Date Value 03/20/2017 trace pH, Urine (no units) Date Value 03/20/2017 6.0 Protein, Urine (mg/dL) Date Value 03/20/2017 30 Urobilinogen, Urine (EU) Date Value 03/20/2017 normal Nitrites (no units) Date Value 03/20/2017 neg Leukocytes (no units) Date Value 03/20/2017 trace Color/Appearance (comment:) Date Value 03/20/2017 leobardo/clear MEDICATIONS: Omeprazole 40 mg capsule Take 1 capsule by mouth once daily. valACYclovir (VALTREX) 500 mg tablet Take 1 tablet by mouth once daily. multivitamin tablet Take 1 tablet by mouth once daily. sulfamethoxazole-trimethoprim (BACTRIM DS) 800-160 mg per tablet Take 1 tablet by mouth twice daily for 7 days. triazolam (HALCION) 0.25 mg tablet Take 30 minutes prior to procedure. sertraline (ZOLOFT) 50 mg tablet 1/2 a tablet by mouth once a day for 10 days then go to one tablet daily gabapentin (NEURONTIN) 300 mg capsule Take 1 capsule by mouth twice daily for 30 days. Review of Systems HISTORIES PAST MEDICAL HISTORY Diagnosis Date Abnormal MRI, lumbar spine 07/23/2017 Acute midline low back pain with left-sided sciatica 07/23/2017 Seeing spine Med GERD without esophagitis 11/12/2019 History of Helicobacter pylori infection 05/27/2016 2017 Lumbosacral neuritis 01/09/2018 Seeing Spine Med Recurrent cold sores 12/11/2013 FAMILY HISTORY Problem Relation Age of Onset Multiple Sclerosis Mother None Father None Sister Ciliac disease None Sister None Brother Cancer Maternal Grandmother , Breast and esophageal Cancer Maternal Grandfather stomach None Paternal Grandmother Coronary Artery Disease Paternal Grandfather early 50's Social History Tobacco Use Smoking status: Never Smoker Smokeless tobacco: Former User Types: Chew Substance Use Topics Alcohol use: Yes Alcohol/week: 8.3 standard drinks Types: 2 Shots of liquor, 2 Cans of Beer (12oz) per week Comment: occassionally Drug use: No PHYSICAL EXAMINATION GENERAL APPEARANCE: Well appearing, alert, in no acute distress, well-hydrated, well nourished. Genitourinary: MALE EXAM: left vas incision is closed and healing well, right vas incision with slight separation, 2cm x 2cm inflamed area, under incision is present, tender to touch, no erythema ASSESSMENT/PLAN: 1. S/P vasectomy - ICD9: V26.52, ICD10: Z98.52 Ice and bactrim Harika Hinojosa PA-C documented in this encounter [facility] 11-19-2021 Miscellaneous Notes We will need a visit. He is due for in office visit anyways. Has not been seen since 11/03/20 for a virtual visit. Arline Nielsen PA-C Dr Sánchez, do you want to see pt in office or just order a sleep study? Buzz Bah LPN documented in this encounter [facility] 11-17-2021 Miscellaneous Notes Pt notified via Bambisaharstephanie Brock CMA ----- Message from Feliz Vines MD sent at 11/17/2021 12:52 PM EDT ----- The lab results all look good. No change in plan. documented in this encounter [facility] 10-20-2021 Miscellaneous Notes 10/18/21 [facility] Visit w/ Dr. Vines Plan: Vasectomy Sedative ordered, no antibiotic I called and spoke with patient. Appointment made on 11/11/21 2:45 PM [place]. He knows to arrive 40-45 minutes prior to sign consent prior to taking sedative. Prep instructions verbalized. Reminder, printed prescription, prep instructions, & estimate have been mailed. documented in this encounter [facility] 10-18-2021 Note HNO ID: [id number] Author: Feliz Vines MD Service: ? Author Type: Physician Type: Progress Notes Filed: 10/18/2021 12:40 PM Note Text: VASECTOMY: The patient is here today to discuss a bilateral vasectomy for sterilization. I explained to him (and his spouse) that a vasectomy is one of the best methods of sterilization, but it is not a guarantee of sterilization. I went into great detail concerning the method of preforming a vasectomy in the office setting and the hospital. I explained that I would prescribe him Halcion to be given orally approximately 30 minutes before the vasectomy is preformed. I told him that I would use a local anesthetic to numb two areas of the scrotum, would resect a small portion of each vas, and cauterize each end of the vas on each side. I explained that I used an absorbable suture to close the incisions, and I recommended that he sit or lie down most of the day/night following the procedure, and to apply an ice pack. I explained that he could have intercourse about 3-5 days after the vasectomy, but cautioned him and his spouse to use some type of control until I instructed him otherwise. He should continue contraception until we see 2 negative semen samples. I did advise him that he was to bring to my office a semen specimen 10 weeks post operatively, and then again 1 week later. If both specimens tested negative for sperm, I would then advise him that it would be safe to have intercourse without any other contraceptives. I explained (in great detail) the possible complications of vasectomy including but not limited to post op bleeding, recanalization and resultant , and/or infection. I talked to him about the relative incidence of these complications, and how to recognize each. I did tell him that persistent pain was unusual but possible, and that it was always possible to have swelling, testicular atrophy, and in extreme cases loss of the testicle as a result of the vasectomy. He was furnished a copy of the operative permit. He expressed an understanding of the procedure, the possible complications, and the possible outcome. There were no vitals taken for this visit. No weight on file for this encounter. : Penis normal. No penile lesions. Testicles palpated and normal. Bilateral vasa deferentia are easily palpable. You are not considered sterile (you may be able to cause a ) until you provide your post procedure semen test and hear back from our office with the results. You must use another form of contraception ( control) until you are notified by the doctor's office that your vasectomy was a success. Impression: Desires sterilization. Plan: Schedule vasectomy at the patient's earliest convenience. Halcion prescribed. Risks benefits options and expectations discussed at length with the patient as above. Consent obtained. Feliz Vines MD Electronically Signed: Feliz Vines MD October 18, 2021 12:38 PM [facility] 10-18-2021 History of Presen t illness Narrative VASECTOMY: The patient is here today to discuss a bilateral vasectomy for sterilization. I explained to him (and his spouse) that a vasectomy is one of the best methods of sterilization, but it is not a guarantee of sterilization. I went into great detail concerning the method of preforming a vasectomy in the office setting and the hospital. I explained that I would prescribe him Halcion to be given orally approximately 30 minutes before the vasectomy is preformed. I told him that I would use a local anesthetic to numb two areas of the scrotum, would resect a small portion of each vas, and cauterize each end of the vas on each side. I explained that I used an absorbable suture to close the incisions, and I recommended that he sit or lie down most of the day/night following the procedure, and to apply an ice pack. I explained that he could have intercourse about 3-5 days after the vasectomy, but cautioned him and his spouse to use some type of control until I instructed him otherwise. He should continue contraception until we see 2 negative semen samples. I did advise him that he was to bring to my office a semen specimen 10 weeks post operatively, and then again 1 week later. If both specimens tested negative for sperm, I would then advise him that it would be safe to have intercourse without any other contraceptives. I explained (in great detail) the possible complications of vasectomy including but not limited to post op bleeding, recanalization and resultant , and/or infection. I talked to him about the relative incidence of these complications, and how to recognize each. I did tell him that persistent pain was unusual but possible, and that it was always possible to have swelling, testicular atrophy, and in extreme cases loss of the testicle as a result of the vasectomy. He was furnished a copy of the operative permit. He expressed an understanding of the procedure, the possible complications, and the possible outcome. There were no vitals taken for this visit. No weight on file for this encounter. : Penis normal. No penile lesions. Testicles palpated and normal. Bilateral vasa deferentia are easily palpable. You are not considered sterile (you may be able to cause a ) until you provide your post procedure semen test and hear back from our office with the results. You must use another form of contraception ( control) until you are notified by the doctor's office that your vasectomy was a success. Impression: Desires sterilization. Plan: Schedule vasectomy at the patient's earliest convenience. Halcion prescribed. Risks benefits options and expectations discussed at length with the patient as above. Consent obtained. Feliz Vines MD Electronically Signed: Feliz Vines MD October 18, 2021 12:38 PM documented in this encounter [facility] 02-19-2014 History of Past i llness Narrative Problem Noted Date Resolved Date Well adult exam 02/19/2014 09/14/2016 Overview: Last done 12/03/2013 documented as of this encounter (statuses as of 10/18/2021) [facility] History of Past illness Narrative* Problem Noted Date Resolved Date Well adult exam 02/19/2014 09/14/2016 Overview: Last done 12/03/2013 documented as of this encounter (statuses as of 10/20/2021) [facility] History of Past illness Narrative* Problem Noted Date Resolved Date Well adult exam 02/19/2014 09/14/2016 Overview: Last done 12/03/2013 documented as of this encounter (statuses as of 11/12/2021) [facility] History of Past illness Narrative* Problem Noted Date Resolved Date Well adult exam 02/19/2014 09/14/2016 Overview: Last done 12/03/2013 documented as of this encounter (statuses as of 11/17/2021) [facility] History of Past illness Narrative* Problem Noted Date Resolved Date Well adult exam 02/19/2014 09/14/2016 Overview: Last done 12/03/2013 documented as of this encounter (statuses as of 11/19/2021) [facility] History of Past illness Narrative* Problem Noted Date Resolved Date Well adult exam 02/19/2014 09/14/2016 Overview: Last done 12/03/2013 documented as of this encounter (statuses as of 11/22/2021) [facility] History of Past illness Narrative* Problem Noted Date Resolved Date Well adult exam 02/19/2014 09/14/2016 Overview: Last done 12/03/2013 documented as of this encounter (statuses as of 12/28/2021) [facility] History of Past illness Narrative* Problem Noted Date Resolved Date Well adult exam 02/19/2014 09/14/2016 Overview: Last done 12/03/2013 documented as of this encounter (statuses as of 01/04/2022) [facility] History of Past illness Narrative* Problem Noted Date Resolved Date Well adult exam 02/19/2014 09/14/2016 Overview: Last done 12/03/2013 documented as of this encounter (statuses as of 01/26/2022) [facility] History of Past illness Narrative* Problem Noted Date Resolved Date Well adult exam 02/19/2014 09/14/2016 Overview: Last done 12/03/2013 documented as of this encounter (statuses as of 02/11/2022) [facility] History of Past illness Narrative* Problem Noted Date Resolved Date Well adult exam 02/19/2014 09/14/2016 Overview: Last done 12/03/2013 documented as of this encounter (statuses as of 02/22/2022) [facility] History of Past illness Narrative* Problem Noted Date Resolved Date Well adult exam 02/19/2014 09/14/2016 Overview: Last done 12/03/2013 documented as of this encounter (statuses as of 03/31/2022) [facility] History of Past illness Narrative* Problem Noted Date Resolved Date Well adult exam 02/19/2014 09/14/2016 Overview: Last done 12/03/2013 documented as of this encounter (statuses as of 03/31/2022) [place] [id number] History of Past illness Narrative* Problem Noted Date Diagnosed Date Resolved Date Well adult exam 02/19/2014 09/14/2016 Overview: Last done 12/03/2013 documented as of this encounter (statuses as of 06/14/2023) [address] History of Past illness Narrative* Problem Noted Date Diagnosed Date Resolved Date Well adult exam 02/19/2014 09/14/2016 Overview: Last done 12/03/2013 documented as of this encounter (statuses as of 06/22/2023) [place] [id number] History of Past illness Narrative* Problem Noted Date Diagnosed Date Resolved Date Well adult exam 02/19/2014 09/14/2016 Overview: Last done 12/03/2013 documented as of this encounter (statuses as of 06/22/2023) [address]2014 History of Past illness Narrative* Problem Noted Date Diagnosed Date Resolved Date Well adult exam 02/19/2014 09/14/2016 Overview: Last done 12/03/2013 documented as of this encounter (statuses as of 06/23/2023) [address]2014 History of Past illness Narrative* Problem Noted Date Diagnosed Date Resolved Date Well adult exam 02/19/2014 09/14/2016 Overview: Last done 12/03/2013 documented as of this encounter (statuses as of 06/28/2023) [address]2014 History of Past illness Narrative* Problem Noted Date Diagnosed Date Resolved Date Well adult exam 02/19/2014 09/14/2016 Overview: Last done 12/03/2013 documented as of this encounter (statuses as of 06/28/2023) [address]2014 History of Past illness Narrative* Problem Noted Date Diagnosed Date Resolved Date Well adult exam 02/19/2014 09/14/2016 Overview: Last done 12/03/2013 documented as of this encounter (statuses as of 11/01/2023) [facility] Encounter for sterilization- Primary Sterilization [facility] Diagnosis S/P vasectomy- Primary [facility]ctomy status [facility] Diagnosis Pain in right testicle- Primary Unspecified disorder of male genital organs S/P vasectomy [facility] Diagnosis Pain in right testicle Unspecified disorder of male genital organs [facility] Diagnosis Wellness examination- Primary Daytime sleepiness Recurrent cold sores Herpes simplex without mention of complication GERD without esophagitis Esophageal reflux Screening for diabetes mellitus Screening cholesterol level Screening for lipoid disorders Encounter for immunization Need for other specified prophylactic vaccination against single bacterial disease [facility] Diagnosis Severe obstructive sleep apnea Obstructive sleep apnea (adult) (pediatric) [facility] Diagnosis Severe obstructive sleep apnea- Primary Obstructive sleep apnea (adult) (pediatric) Obesity, Class I, BMI 30-34.9 Obesity, unspecified Snoring Other dyspnea and respiratory abnormality Witnessed episode of apnea Unrefreshed by sleep Other sleep disturbances Excessive daytime sleepiness Drooling Disturbance of salivary secretion [facility] Diagnosis GERD without esophagitis Esophageal reflux [facility] Diagnosis Acute pain of right knee- Primary [facility] Diagnosis Pharyngitis, unspecified etiology- Primary [facility] Diagnosis GERD without esophagitis Esophageal reflux [facility] Diagnosis Pain of right heel Pain in limb [facility] Diagnosis Acute pain of right knee [facility] Diagnosis Sore throat- Primary Acute pharyngitis Acute URI Acute upper respiratory infections of unspecified site [facility] Diagnosis Well adult exam- Primary Routine general medical examination at a health care facility Recurrent cold sores Herpes simplex without mention of complication GERD without esophagitis Esophageal reflux Severe obstructive sleep apnea Obstructive sleep apnea (adult) (pediatric) Obesity, Class I, BMI 30-34.9 Obesity, unspecified Fatigue, unspecified type Low libido Decreased libido Subacute cough Cough Current use of proton pump inhibitor Encounter for long-term (current) use of other medications Encounter for lipid screening for cardiovascular disease Screening for lipoid disorders Encounter for screening for diabetes mellitus Screening for diabetes mellitus Immunity status testing Antibody response examination Encounter for screening examination for other mental health and behavioral disorders Screening for depression [facility] Diagnosis Hyperlipidemia, mixed- Primary Mixed hyperlipidemia Encounter for immunization Need for other specified prophylactic vaccination against single bacterial disease Fatigue, unspecified type Low libido Decreased libido [facility] Diagnosis Need for vaccination- Primary Need for prophylactic vaccination and inoculation against unspecified single disease [facility] Diagnosis GERD without esophagitis Esophageal reflux [facility] Diagnosis Obstructive sleep apnea- Primary Obstructive sleep apnea (adult) (pediatric) documented in this encounter [facility] for referral (narrative)* Diagnostic Procedure Only (Routine) - Authorized Specialty Diagnoses / Procedures Referred By Contac t Referred To Contact US IMAGING Diagnoses Pain in right testicle Procedures US SCROTUM AND CONTENTS US SCROTUM & CONTENTS James Oreilly PA-C [address] [place] [address] Us Imaging Referral ID Status Reason Start Date Expiration Date Visits Requested Visits Authorized [id number] Authorized Auto-Generat ed Referral 12/29/2021 01/27/2023 1 1 [facility] for referral (narrative)* Diagnostic Procedure Only (Routine) - Closed Specialty Diagnoses / Procedures Referred By Contac t Referred To Contact US IMAGING Diagnoses Pain in right testicle Procedures US SCROTUM AND CONTENTS US SCROTUM & CONTENTS James Oreilly PA-C [address] [place] [address] Us Imaging Referral ID Status Reason Start Date Expiration Date V isits Requested Visits Authorized [id number] Closed Auto-Generate d Referral 12/29/2021 01/27/2023 1 1 [facility] for referral (narrative)* Diagnostic Procedure Only (Routine) - Open Specialty Diagnoses / Procedures Referred By Contac t Referred To Contact [facility] Diagnoses Daytime sleepiness Procedures HOME SLEEP APNEA TEST (HSAT) SLEEP STD AIRFLOW HRT RATE&O2 SAT EFFORT UNATT Fifi Roland, NEUROPSYCHOLOGY SERVICE DIRECTOR.LACTATION NURSE [address] [place] [address] [facility] [address] [place] [address] Referral ID Status Reason Start Date Expiration Date V isits Requested Visits Authorized [id number] Open Auto-Generate d Referral 01/26/2022 01/26/2023 1 1 [facility] for referral (narrative)* Diagnostic Procedure Only (Routine) - Closed Specialty Diagnoses / Procedures Referred By Contac t Referred To Contact XR IMAGING Diagnoses Acute pain of right knee Procedures XR KNEE GENERAL 4V AP BOTH/PA BOTH/LAT/MERC RIGHT RADIOLOGIC EXAM KNEE COMPLETE 4/MORE VIEWS Vikram Newby MD [address] [place] [address] [place] [address] Referral ID Status Reason Start Date Expiration Date V isits Requested Visits Authorized [id number] Closed Auto-Generate d Referral 06/26/2023 07/25/2024 1 1 [facility] for referral (narrative)* Diagnostic Procedure Only (Routine) - Closed Specialty Diagnoses / Procedures Referred By Contac t Referred To Contact XR IMAGING Diagnoses Pain of right heel Procedures XR FOOT GENERAL 3V AP/LAT/OBL RIGHT RADEX FOOT COMPLETE MINIMUM 3 VIEWS Ade Jason APRN.CNP [address] [place] [address] [place] [id number] Referral ID Status Reason Start Date Expiration Date V isits Requested Visits Authorized [id number] Closed Auto-Generate d Referral 06/19/2023 07/18/2024 1 1 [facility] for referral (narrative)* Diagnostic Procedure Only (Routine) - Closed Specialty Diagnoses / Procedures Referred By Contac t Referred To Contact XR IMAGING Diagnoses Acute pain of right knee Procedures XR KNEE GENERAL 4V AP BOTH/PA BOTH/LAT/MERC RIGHT RADIOLOGIC EXAM KNEE COMPLETE 4/MORE VIEWS Vikram Newby MD [address] [place] [address] [place] [address] Referral ID Status Reason Start Date Expiration Date V isits Requested Visits Authorized [id number] Closed Auto-Generate d Referral 06/26/2023 07/25/2024 1 1 [facility] for visit Narrative* Diagnostic Procedure Only (Routine) - Closed Specialty Diagnoses / Procedures Referred By Contac t Referred To Contact XR IMAGING Diagnoses Pain of right heel Procedures XR FOOT GENERAL 3V AP/LAT/OBL RIGHT RADEX FOOT COMPLETE MINIMUM 3 VIEWS Ade Jason APRN.CNP [address] [place] [address] [place] [address] Referral ID Status Reason Start Date Expiration Date V isits Requested Visits Authorized [id number] Closed Auto-Generate d Referral 06/19/2023 07/18/2024 1 1 [facility] for visit Narrative* Diagnostic Procedure Only (Routine) - Closed Specialty Diagnoses / Procedures Referred By Contac t Referred To Contact XR IMAGING Diagnoses Acute pain of right knee Procedures XR KNEE GENERAL 4V AP BOTH/PA BOTH/LAT/MERC RIGHT RADIOLOGIC EXAM KNEE COMPLETE 4/MORE VIEWS Vikram Newby MD [address] [place] [address] [place] [address] Referral ID Status Reason Start Date Expiration Date V isits Requested Visits Authorized [id number] Closed Auto-Generate d Referral 06/26/2023 07/25/2024 1 1 [facility] Summary Purpose Family History No Family History Records FoundNo Family History Records FoundNo Family History Records Found Advance Directives Documents on File Type Date Recorded Patient Accounting Policy Consultant Expl anation Advance Directive(s) 02/19/2020 11:54 AM Advance Directive(s) 02/12/2020 11:52 AM Advance Directive(s) 10/29/2018 11:04 AM Advance Directive(s) 03/14/2018 1:47 PM Advance Directive(s) 09/21/2016 7:22 AM Documents on File Type Date Recorded Patient Accounting Policy Consultant Expl anation Advance Directive(s) 02/19/2020 11:54 AM Advance Directive(s) 02/12/2020 11:52 AM Advance Directive(s) 10/29/2018 11:04 AM Advance Directive(s) 03/14/2018 1:47 PM Advance Directive(s) 09/21/2016 7:22 AM Reason for Referral Specialty Diagnoses / Procedures Referred By Contac t Referred To Contact Diagnoses Severe obstructive sleep apnea Procedures CONSULT TO SLEEP MEDICINE - ADULT OFFICE/OUTPATIENT [facility] 60-74 MINUTES Kaveh Sánchez MD [address] [place] [address] Referral ID Status Reason Start Date Expiration Date Visits Requested Visits Authorized [id number] Authorized PCP Requested Referral 02/21/2022 02/21/2023 1 1 Additional Source Comments (unrecognized sect ion and content) No Status Records FoundNo Status Records FoundNo Status Records Found INFORMATION SOURCE (unrecogn ized section and content) DATE CREATED AUTHOR 01/17/2018 [facility] DATE CREATED AUTHOR AUTHOR'S ORGANIZ ATION 11/23/2021 [facility] DATE CREATED AUTHOR AUTHOR'S ORGANIZ ATION 02/10/[address] [facility] Source Comments (unrecognize d section and content) In the event this informatio n is protected by the Federal Confidentiality of Alcohol and Drug Abuse Patient Records regulations: The Federal rules restrict any use of the information to criminally investigate or prosecute any alcohol or drug abuse patient.[facility] the event this information is protected by the Federal Confidentiality of Alcohol and Drug Abuse Patient Records regulations: The Federal rules restrict any use of the information to criminally investigate or prosecute any alcohol or drug abuse patient.[facility] the event this information is protected by the Federal Confidentiality of Alcohol and Drug Abuse Patient Records regulations: The Federal rules restrict any use of the information to criminally investigate or prosecute any alcohol or drug abuse patient.[facility] the event this information is protected by the Federal Confidentiality of Alcohol and Drug Abuse Patient Records regulations: The Federal rules restrict any use of the information to criminally investigate or prosecute any alcohol or drug abuse patient.[facility] the event this information is protected by the Federal Confidentiality of Alcohol and Drug Abuse Patient Records regulations: The Federal rules restrict any use of the information to criminally investigate or prosecute any alcohol or drug abuse patient.[facility] the event this information is protected by the Federal Confidentiality of Alcohol and Drug Abuse Patient Records regulations: The Federal rules restrict any use of the information to criminally investigate or prosecute any alcohol or drug abuse patient.[facility] the event this information is protected by the Federal Confidentiality of Alcohol and Drug Abuse Patient Records regulations: The Federal rules restrict any use of the information to criminally investigate or prosecute any alcohol or drug abuse patient.[facility] the event this information is protected by the Federal Confidentiality of Alcohol and Drug Abuse Patient Records regulations: The Federal rules restrict any use of the information to criminally investigate or prosecute any alcohol or drug abuse patient.[facility] the event this information is protected by the Federal Confidentiality of Alcohol and Drug Abuse Patient Records regulations: The Federal rules restrict any use of the information to criminally investigate or prosecute any alcohol or drug abuse patient.[facility] the event this information is protected by the Federal Confidentiality of Alcohol and Drug Abuse Patient Records regulations: The Federal rules restrict any use of the information to criminally investigate or prosecute any alcohol or drug abuse patient.[facility] the event this information is protected by the Federal Confidentiality of Alcohol and Drug Abuse Patient Records regulations: The Federal rules restrict any use of the information to criminally investigate or prosecute any alcohol or drug abuse patient.[facility] Hospital[facility] the event this information is protected by the Federal Confidentiality of Alcohol and Drug Abuse Patient Records regulations: The Federal rules restrict any use of the information to criminally investigate or prosecute any alcohol or drug abuse patient.[facility] the event this information is protected by the Federal Confidentiality of Alcohol and Drug Abuse Patient Records regulations: The Federal rules restrict any use of the information to criminally investigate or prosecute any alcohol or drug abuse patient.[facility] the event this information is protected by the Federal Confidentiality of Alcohol and Drug Abuse Patient Records regulations: The Federal rules restrict any use of the information to criminally investigate or prosecute any alcohol or drug abuse patient.[facility] the event this information is protected by the Federal Confidentiality of Alcohol and Drug Abuse Patient Records regulations: The Federal rules restrict any use of the information to criminally investigate or prosecute any alcohol or drug abuse patient.[facility] Hospital[facility] the event this information is protected by the Federal Confidentiality of Alcohol and Drug Abuse Patient Records regulations: The Federal rules restrict any use of the information to criminally investigate or prosecute any alcohol or drug abuse patient.[facility] the event this information is protected by the Federal Confidentiality of Alcohol and Drug Abuse Patient Records regulations: The Federal rules restrict any use of the information to criminally investigate or prosecute any alcohol or drug abuse patient.[facility] the event this information is protected by the Federal Confidentiality of Alcohol and Drug Abuse Patient Records regulations: The Federal rules restrict any use of the information to criminally investigate or prosecute any alcohol or drug abuse patient.[facility] Hospital[facility] the event this information is protected by the Federal Confidentiality of Alcohol and Drug Abuse Patient Records regulations: The Federal rules restrict any use of the information to criminally investigate or prosecute any alcohol or drug abuse patient.[facility] Hospital[facility] the event this information is protected by the Federal Confidentiality of Alcohol and Drug Abuse Patient Records regulations: The Federal rules restrict any use of the information to criminally investigate or prosecute any alcohol or drug abuse patient.[facility] Hospital[facility] the event this information is protected by the Federal Confidentiality of Alcohol and Drug Abuse Patient Records regulations: The Federal rules restrict any use of the information to criminally investigate or prosecute any alcohol or drug abuse patient.[facility] Hospital[facility] the event this information is protected by the Federal Confidentiality of Alcohol and Drug Abuse Patient Records regulations: The Federal rules restrict any use of the information to criminally investigate or prosecute any alcohol or drug abuse patient.[facility] Hospital[facility] the event this information is protected by the Federal Confidentiality of Alcohol and Drug Abuse Patient Records regulations: The Federal rules restrict any use of the information to criminally investigate or prosecute any alcohol or drug abuse patient.[facility] the event this information is protected by the Federal Confidentiality of Alcohol and Drug Abuse Patient Records regulations: The Federal rules restrict any use of the information to criminally investigate or prosecute any alcohol or drug abuse patient.[facility] the event this information is protected by the Federal Confidentiality of Alcohol and Drug Abuse Patient Records regulations: The Federal rules restrict any use of the information to criminally investigate or prosecute any alcohol or drug abuse patient.[facility]In the event this information is protected by the Federal Confidentiality of Alcohol and Drug Abuse Patient Records regulations: The Federal rules restrict any use of the information to criminally investigate or prosecute any alcohol or drug abuse patient.[facility] the event this information is protected by the Federal Confidentiality of Alcohol and Drug Abuse Patient Records regulations: The Federal rules restrict any use of the information to criminally investigate or prosecute any alcohol or drug abuse patient.[facility] the event this information is protected by the Federal Confidentiality of Alcohol and Drug Abuse Patient Records regulations: The Federal rules restrict any use of the information to criminally investigate or prosecute any alcohol or drug abuse patient.[facility] HospitalIn the event this information is protected by the Federal Confidentiality of Alcohol and Drug Abuse Patient Records regulations: The Federal rules restrict any use of the information to criminally investigate or prosecute any alcohol or drug abuse patient.[facility] HospitalIn the event this information is protected by the Federal Confidentiality of Alcohol and Drug Abuse Patient Records regulations: The Federal rules restrict any use of the information to criminally investigate or prosecute any alcohol or drug abuse patient.[facility] HospitalIn the event this information is protected by the Federal Confidentiality of Alcohol and Drug Abuse Patient Records regulations: The Federal rules restrict any use of the information to criminally investigate or prosecute any alcohol or drug abuse patient.[facility]In the event this information is protected by the Federal Confidentiality of Alcohol and Drug Abuse Patient Records regulations: The Federal rules restrict any use of the information to criminally investigate or prosecute any alcohol or drug abuse patient.[facility]In the event this information is protected by the Federal Confidentiality of Alcohol and Drug Abuse Patient Records regulations: The Federal rules restrict any use of the information to criminally investigate or prosecute any alcohol or drug abuse patient.[facility] HospitalIn the event this information is protected by the Federal Confidentiality of Alcohol and Drug Abuse Patient Records regulations: The Federal rules restrict any use of the information to criminally investigate or prosecute any alcohol or drug abuse patient.[facility] Reason for Visit (unrecogniz ed section and content) Reason Comments New Patient Evaluation Specialty Diagnoses / Procedures Referred By Contac t Referred To Contact Diagnoses Well adult exam Procedures CONSULT TO SLEEP MEDICINE - ADULT OFFICE/OUTPATIENT [facility] 60 MINUTES Arline Nielsen PA-C [address] [place] [address] Phone: tel: fax: Referral ID Status Reason Start Date Expiration Date V isits Requested Visits Authorized [id number] Closed PCP Requested Referral 01/01/2025 01/01/2026 1 1 Reason Comments Sterilization (Elective) Reason Comments Follow up Reason Comments Opened In Error Reason Comments Results Reason Comments Post-Op Visit Reason Comments Follow Up Reason Comments Radiology US Specialty Diagnoses / Procedures Referred By Contac t Referred To Contact US IMAGING Diagnoses Pain in right testicle Procedures US SCROTUM AND CONTENTS US SCROTUM & CONTENTS James Oreilly PA-C [address] [place] [address] Us Imaging Referral ID Status Reason Start Date Expiration Date V isits Requested Visits Authorized [id number] Closed Auto-Generate d Referral 12/29/2021 01/27/2023 1 1 Reason Comments Physical snoring and breathin g issues while sleeping Reason Comments PAP Therapy Fax Reason Comments Refill Request Reason Comments Knee Pain Right knee pain sinc e Wed Reason Comments Sore Throat loss of voice x 5 da ys Reason Onset Date Comments Refill Request 02/20/2024 Reason Comments Sore Throat GREWAL, cough x3 days Reason Comments Yearly Exam Reason Onset Date Comments Refill Request 01/27/2025 Reason Comments Orders Reason Onset Date Comments Results 02/07/2025 Care Teams (unrecognized sec tion and content) Voice Systems Engineer Relationship Specialty Start Date End Date Kaveh Sánchez MD [address] [place] [address] PCP - General Family Practice 12/03/13 Voice Systems Engineer Relationship Specialty Start Date End Date Kaveh Sánchez MD [address] [place] [address] PCP - General Family Practice 12/03/13 Voice Systems Engineer Relationship Specialty Start Date End Date Kaveh Sánchez MD [facility] [place] [address] PCP - General Family Practice 12/03/13 Voice Systems Engineer Relationship Specialty Start Date End Date Kaveh Sánchez MD [address] [place] [address] PCP - General Family Practice 12/03/13 Voice Systems Engineer Relationship Specialty Start Date End Date Kaveh Sánchez MD [address] [place] [address] PCP - General Family Practice 12/03/13 Voice Systems Engineer Relationship Specialty Start Date End Date Kaveh Sánchez MD [facility] [place] [address] PCP - General Family Practice 12/03/13 Voice Systems Engineer Relationship Specialty Start Date End Date Kaveh Sánchez MD [address] [place] [address] PCP - General Family Practice 12/03/13 Voice Systems Engineer Relationship Specialty Start Date End Date Kaveh Sánchez MD [address] [place] [address] PCP - General Family Practice 12/03/13 Voice Systems Engineer Relationship Specialty Start Date End Date Kaveh Sánchez MD [address] [place] [address] PCP - General Family Practice 12/03/13 Voice Systems Engineer Relationship Specialty Start Date End Date Kaveh Sánchez MD [address] [place] [address] PCP - General Family Practice 12/03/13 Voice Systems Engineer Relationship Specialty Start Date End Date Kaveh Sánchez MD [address] [place] [address] PCP - General Family Practice 12/03/13 Voice Systems Engineer Relationship Specialty Start Date End Date Kaveh Sánchez MD [address] [place] [address] PCP - General Family Medicine 12/03/13 Voice Systems Engineer Relationship Specialty Start Date End Date Kaveh Sánchez MD [address] [place] [address] PCP - General Family Medicine 12/03/13 Voice Systems Engineer Relationship Specialty Start Date End Date Kaveh Sánchez MD [address] [place] [address] PCP - General Family Medicine 12/03/13 Voice Systems Engineer Relationship Specialty Start Date End Date Kaveh Sánchez MD [address] [place] [address] PCP - General Family Medicine 12/03/13 Voice Systems Engineer Relationship Specialty Start Date End Date Kaveh Sánchez MD [address] [place] [address] PCP - General Family Medicine 12/03/13 Voice Systems Engineer Relationship Specialty Start Date End Date Kaveh Sánchez [place] [address] [place] [address] PCP - General Family Medicine 12/03/13 Voice Systems Engineer Relationship Specialty Start Date End Date Kaveh Sánchez [place] [address] [place] [address] PCP - General Family Medicine 12/03/13 Voice Systems Engineer Relationship Specialty Start Date End Date Kaveh Sánchez MD [address] [place] [address] PCP - General Family Medicine 12/03/13 Voice Systems Engineer Relationship Specialty Start Date End Date Kaveh Sánchez MD [address] [place] [address] PCP - General Family Medicine 12/03/13 Voice Systems Engineer Relationship Specialty Start Date End Date Kaveh Sánchez MD [address] [place] [address] PCP - General Family Medicine 12/03/13 Ade Jason APRN.CNP [address] [place] [address] Academy Director Family Medicine 06/29/24 Arline Nielsen PA-C [address] [place] [address] Academy Director Family Medicine 06/29/24 Voice Systems Engineer Relationship Specialty Start Date End Date Kaveh Sánchez MD [address] [place] [address] PCP - General Family Medicine 10/28/24 Ade Jason APRN.LACTATION NURSE [address] [place] [address] Academy Director Family Medicine 06/29/24 Arline Nielsen PA-C [address] [place] [address] Academy Director Family Medicine 06/29/24 Voice Systems Engineer Relationship Specialty Start Date End Date Kaveh Sánchez MD [address] [place] [address] PCP - General Family Medicine 10/28/24 Ade Jason APRN.LACTATION NURSE [address] [place] [address] Academy Director Family Medicine 12/23/24 Arline Nielsen PA-C [address] [place] [address] Academy Director Family Medicine 12/23/24 Voice Systems Engineer Relationship Specialty Start Date End Date Kaveh Sánchez MD [address] [place] [address] PCP - General Family Medicine 10/28/24 Ade Jason NEUROPSYCHOLOGY SERVICE DIRECTOR.LACTATION NURSE [address] [place] [address] Academy Director Family Medicine 12/23/24 Arline Nielsen PA-C [address] [place] [address] Academy Director Family Medicine 12/23/24 Voice Systems Engineer Relationship Specialty Start Date End Date Kaveh Sánchez MD [address] [place] [address] PCP - General Family Medicine 10/28/24 Ade Jason APRN.LACTATION NURSE [address] [place] [address] Academy Director Family Medicine 12/23/24 Arline Nielsen PA-C [address] [place] [address] Academy Director Family Medicine 12/23/24 Voice Systems Engineer Relationship Specialty Start Date End Date Kaveh Sánchez MD [address] [place] [address] PCP - General Family Medicine 10/28/24 Ade Jasno, NEUROPSYCHOLOGY SERVICE DIRECTOR.LACTATION NURSE [facility] [place] [address] Academy Director Family Medicine 12/23/24 Arline Nielsen PA-C [address] [place] [address] Academy Director Family Medicine 12/23/24 Voice Systems Engineer Relationship Specialty Start Date End Date Kaveh Sánchez MD [address] [place] [address] PCP - General Family Medicine 10/28/24 Ade Jason, STEVEN.LACTATION NURSE [facility] [place] [address] Academy Director Family Medicine 12/23/24 Arline Nielsen PA-C [address] [place] [address] Academy Director Family Medicine 12/23/24 Voice Systems Engineer Relationship Specialty Start Date End Date Kaveh Sánchez MD [address] [place] [address] PCP - General Family Medicine 12/03/13 10/27/24 Kaveh Sánchez MD [address] [place] [address] PCP - General Family Medicine 10/28/24 Ade Jason APRN.LACTATION NURSE [address] [place] [id number] [facility] Director Family Medicine 06/29/24 12/08/24 Arline Nielsen PA-C [address] [place] [address] Academy Director Family Medicine 06/29/24 12/22/24 Ade Jason, STEVEN.LACTATION NURSE [address] [place] [id number] Academy Director Family Medicine 12/23/24 Arline Nielsen PA-C [address] [place] [address] Academy Director Family Medicine 12/23/24 Voice Systems Engineer Relationship Specialty Start Date End Date Kaveh Sánchez MD [address] [place] [address] PCP - General Family Medicine 10/28/24 Ade Jason, NEUROPSYCHOLOGY SERVICE DIRECTOR.LACTATION NURSE [facility] [place] [address] [facility] 12/23/24 Arline Nielsen PA-C [address] [place] [address] [facility] 12/23/24 FOR RECORDS PERTAINING TO PATIENTS WHO ARE OR HAVE BEEN ENROLLED IN A CHEMICAL DEPENDENCY/SUBSTANCEABUSE PROGRAM, SOME INFORMATION MAY BE OMITTED. This clinical summary was aggregated from multiple sources. Caution should be exercised in using it in the provision of clinical care. This summary normalizes information from multiple sources, and as a consequence, information in this document may materially change the coding, format and clinical context of patient data. In addition, data may be omitted in some cases. CLINICAL DECISIONS SHOULD BE BASED ON THE PRIMARY CLINICAL RECORDS. [facility] [employer] [facility]. provides no warranty or guarantee of the accuracy or completeness of information in this document.
[2025-07-19 20:59] LABS: Hematocrit 43.6 % (40-54); Hemoglobin 15.0 g/dL (13.0-16.5); Immature Granulocytes Count 0.040 X10^3/uL (0.0-0.0); Mean Corp Hgb Conc 34.4 g/dL (32-36); Mean Corpuscular Volume 82.4 fL (80-94); Mean Platelet Vol. 9.2 fl (6.2-12.0); NRBC Flagged by Analyzer 0 % (0-5); Platelet Count 309 K/mm3 (150-450); RBC Distribution Width CV 12.9 % (11.6-14.6); RBC Distribution Width SD 38.6 fl (35.1-43.9); Red Blood Count 5.29 M/mm3 (4.6-6.2); White Blood Count 9.9 K/mm3 (4.4-11.0)
[2025-07-19 21:11] VITALS: BP 141/97
[2025-07-19] MEDS: Nitroglycerin SL (ED/IMG/CATH) 0.4 MG TABLET SL (21:11)
[2025-07-19 21:12] VITALS: BP 141/97; PULSE 103; RESP 19; O2SAT 96
[2025-07-19 21:15] LABS: Anion Gap 12 (7-18); BUN 14 mg/dL (4-19); BUN/Creat Ratio 13.8 RATIO (10-20); Calcium,Total 9.1 mg/dL (7.6-11.0); Carbon Dioxide 24.7 mmol/L (20.0-29.0); Chloride 106 mmol/L (96-106); Estimated Creatinine Clearance 133.31 ml/min (50-250); Glucose 90 mg/dL (70-99); Potassium 3.6 mmol/L (3.5-5.1); Troponin T High Sensitivity < 6 ng/L (<=22)
[2025-07-19 21:21] LABS: D-Dimer Quantitative (DVT/PE) < 0.27 FEU/ug/m (0.27-0.49)
[2025-07-19 22:00] VITALS: BP 132/100; PULSE 111; O2SAT 95
--- NOTE | 2025-07-19 22:20 | RAD_ITS ---
PROCEDURE: CHEST PA AND LATERAL 07/19/2025 REASON FOR EXAM: CHEST PAIN TECHNIQUE: Procedure Code: RADCXR Modality: DX Procedure: CHEST PA AND LATERAL COMPARISON: None FINDINGS: Hardware: None Heart: The heart size is normal. Mediastinum: The mediastinal contour is unremarkable. Lungs: Hypoventilation. The lungs are clear. Bones: The bones are unremarkable. RAD/Chest PA and Lateral IMPRESSION: Hypoventilation without acute cardiopulmonary abnormality. Reading Location: [facility]
[2025-07-19 23:00] VITALS: BP 148/102; PULSE 80; RESP 16; O2SAT 99
[2025-07-19 23:06] LABS: Troponin T High Sens 2 HR < 6 ng/L (<=22)
[2025-07-19 23:39] VITALS: BP 148/102; PULSE 80; RESP 16; TEMP 36.6; O2SAT 99
[2025-07-19] MEDS: Lidocaine 2% Viscous15 ML UDC 15 ML PO (23:44)
[2025-07-19] MEDS: Mag /Aluminum/Simeth WCH UDC 30 ML ORAL.SUSP PO (23:44)
== END 2025-07-19 23:39 | disposition home or self-care (01) ==
PROVIDERS: Emergency Provider Emergency Medicine; PCP Family Medicine; Visit Provider Emergency Medicine
DX: R07.9 Chest pain, unspecified (principal); K21.9 Gastro-esophageal reflux disease without esophagitis; R03.0 Elevated blood-pressure reading, without diagnosis of hypertension
CPT/HCPCS: 71046; 80048; 84484; 85025; 85379; 93005; 99285; A4216